=== PATIENT | female | born 1980 | race Caucasian/White ===

== ENCOUNTER → 2016-05-01 | Outpatient (CLI) | payer OTHER ==
[~2016-05-01] MED LIST: AMLO10TA2 PO; ATV/1 PO; CGN1X PO; CYM/30 PO; GLIM1TAB2 PO; HLD5 PO; HYDR-5688 PO; HYDR25TA4 PO; LAMO200T38 PO; LEVO75TA PO; LITH1TAB PO; LITH1TAB10 PO; LITH300T2 PO; LSN25 PO; LTHSR450 PO; LURA40TA PO; LXP10 PO; MELO15TA10 PO; METO-551 PO; MULT-603 PO; PENI-82 PO; PREG1CAP70 PO; PREG200C PO; PRLSR20 PO; TRAM-10 PO; ZIPR1CAP8 PO
--- NOTE | 2016-05-01 16:19 | DIAGNOSTIC IMAGING REPORT ---
PELVIC ULTRASOUND, TRANSABDOMINAL AND TRANSVAGINAL HISTORY: SECONDARY AMENORRHEA COMPARISON: Pelvic ultrasound 06/12/2013. FINDINGS: Uterus: 9.1 x 4.5 x 5.0 cm. No uterine masses. Endometrial stripe: 8 mm in thickness. Trace fluid at the cervical canal. Right ovary: Obscured by overlying bowel gas. Left ovary: Normal in size and demonstrates normal color flow. Multiple small follicles/cysts. Miscellaneous:Trace pelvic free fluid which is likely physiologic. IMPRESSION: 1. No significant abnormality within the uterus or left ovary. 2. The right ovary was again not identified. Electronically signed by: Bernard Kinsey M.D. 05/01/2016 4:17 PM Dictated Date/Time: 05/01/2016 4:15 PM
== END | disposition home or self-care (01) ==
LOC: C.ULTR 15:33
PROVIDERS: ATTEND Family Medicine
DX: N91.1 Secondary amenorrhea (principal)

== ENCOUNTER → 2016-05-04 | Outpatient (CLI) | payer OTHER ==
[2016-05-04 08:24] LABS: BLOOD UREA NITROGEN 8 mg/dl (7-18); BUN/CREATININE RATIO 9.7 (10-20); CARBON DIOXIDE 25 mmol/L (21-32); CHLORIDE 100 mmol/L (98-107); CREATININE 0.78 mg/dl (0.60-1.20); GLUCOSE 88 mg/dl (70-99); POTASSIUM 3.8 mmol/L (3.5-5.1); SODIUM 137 mmol/L (136-145)
[2016-05-04 08:33] LABS: THYROID STIMULATING HORMONE 0.437 uIu/ml (0.300-4.500)
[2016-05-04 09:08] LABS: PROLACTIN 4.3 ng/mL
== END | disposition home or self-care (01) ==
LOC: C.LAB 07:28
PROVIDERS: ATTEND Family Medicine
DX: N91.1 Secondary amenorrhea (principal); Z51.81 Encounter for therapeutic drug level monitoring; Z79.899 Other long term (current) drug therapy

== ENCOUNTER → 2016-06-29 | Outpatient (CLI) | payer OTHER | END | disposition home or self-care (01) | LOC: C.LAB 08:24 | PROVIDERS: ATTEND Psychiatry & Neurology Psychiatry | DX: Z51.81 Encounter for therapeutic drug level monitoring (principal); Z79.899 Other long term (current) drug therapy ==

== ENCOUNTER 2016-07-05 09:40 | Emergency (ER) | payer OTHER ==
[~2016-07-05] VITALS: Ht 152.4 cm; Wt 98.1 kg
[~2016-07-05 09:40] MED LIST changes: -ATV/1 PO; -HLD5 PO; -LITH1TAB10 PO; -LITH300T2 PO; -LTHSR450 PO; -LURA40TA PO; -LXP10 PO; -PREG200C PO
[2016-07-05 09:45] VITALS: TEMP 36.5; Ht 152.4 cm; Wt 98.1 kg
--- NOTE | 2016-07-05 10:19 | EMERGENCY ROOM VISIT NOTE ---
History Report prepared by Maged: Anthony Wood Under the Supervision of: Dr. Houston Corado M.D. First contact with patient: 09:59 Chief Complaint: MENTAL HEALTH EVALUATION Stated Complaint: TICS/DEPRESSION History of Present Illness The patient is a 36 year old female who presents to the Emergency Room for an acute mental health evaluation today. The patient's fiance notes that she has had worsening tics for the past month, including head bobbing and repeating nonsense words. The patient saw her Psychiatrist who recommended she go to the hospital if the symptoms worsen. Her fiance notes that her medications were changed recently. The patient's tic started with the head bobbing before the onset of her verbal tic. The patient notes that she is feeling depressed and anxious, which she attributes to her tics. The patient denies suicidal or homicidal ideations. The patient had a similar tic several years ago, which resolved when her medications were readjusted. The patient complains of neck pain secondary to the repeated head bobbing. She also had diarrhea last night and today. She denies any urinary symptoms. She has been eating okay. The patient denies drug or alcohol use. Source of History: patient, spouse/significant other Onset: today Position: other (mentation) Quality: other (mental health evaluation) Timing: other (acute) Associated Symptoms: + diarrhea, + neck pain, No urinary symptoms Note: Negative HI or SI. Review of Systems All systems have been listed, reviewed, and are negative other than those previously mentioned. Please see Additional Medical History Sheet. Past Medical & Surgical Medical Problems: (1) Altered mental state (2) ANXIETY STATE NOS (3) BIPOL I, REC EPIS OR CURRENT MIXED, SEVERE, SPEC W PSYCH BEH (4) Cholecystectomy (5) Diabetes (6) Emphysema (7) Fibromyalgia (8) HTN (hypertension) (9) Hypoxia (10) Personality disorder (11) Pneumonia Surgical Problems: (1) H/O section Family History Alcoholism Cancer Heart disease Hypertension Kidney disease or stones Social History Smoking Status: Never Smoker Alcohol Use: none Drug Use: none Marital Status: in relationship Housing Status: lives with family Occupation Status: disabled Current/Historical Medications Scheduled Amlodipine Besylate (Norvasc), 10 MG PO DAILY Benztropine Mesylate (Benztropine Mesylate), 1 MG PO DAILY Glimepiride (Glimepiride), 0.5 MG PO QAM Hydrochlorothiazide (Hctz), 25 MG PO DAILY Lamotrigine (Lamictal), 200 MG PO QAM Levothyroxine Sodium (Synthroid), 75 MCG PO DAILY Lisinopril (Lisinopril), 2.5 MG PO DAILY Olga Carbonate (Olga Carbonate), 900 MG PO QPM Lurasidone Hcl (Latuda), 20 MG PO DAILY Metoprolol Tartrate (Lopressor), 100 MG PO BID Pregabalin (Lyrica), 200 MG PO BID Tramadol (Ultram), 25 MG PO BID Scheduled PRN Lorazepam (Ativan), 2 MG PO Q6H PRN for anxiety Allergies Coded Allergies: Chlorpromazine (Verified Allergy, Intermediate, RASH, 02/24/16) Vilazodone (Verified Allergy, Mild, VIIBRYD- RASH, 02/24/16) Naproxen (Verified Allergy, Unknown, Rash, 02/24/16) Prednisone (Verified Allergy, Unknown, BAD RASH, 02/24/16) Risperidone (Verified Allergy, Unknown, swollen tongue and stiff legs, ) Physical Exam Vital Signs Date Time Temp Pulse Resp B/P Pulse Ox O2 Delivery O2 Flow Rate FiO2 07/05/16 15:48 84 22 118/84 98 07/05/16 13:13 57 18 116/61 99 Room Air 07/05/16 09:45 36.5 69 18 125/86 97 Room Air Physical Exam GENERAL: Patient awake, alert, oriented x 3. Patient follows commands. Patient does not appear toxic. Patient is adequately hydrated and well- nourished. SKIN: No erythema, pallor, cyanosis or rash HEENT: Normal head, pupils equal, reactive to light and accommodation. Tic involving rapid movement of head and neck. LUNGS: Clear to auscultation. No wheezes, no rales, no rhonchi. HEART: No murmurs. No gallops. No rubs ABDOMEN: Soft, nontender, obese. EXTREMITIES: No signs of trauma or infection. PSYCH: Denies suicidal or homicidal ideations, does not appear despondent, answers most questions appropriately. Medical Decision & Procedures Laboratory Results 07/05/16 10:27 07/05/16 10:27 Test 07/05/16 10:27 07/05/16 11:46 Red Blood Count 5.72 M/uL (4.2-5.4) Mean Corpuscular Volume 83.0 fL (80-100) Mean Corpuscular Hemoglobin 28.8 pg (25-34) Mean Corpuscular Hemoglobin Concent 34.7 g/dl (32-36) RDW Standard Deviation 41.3 fL (36.4-46.3) RDW Coefficient of Variation 13.6 % (11.5-14.5) Mean Platelet Volume 10.5 fL (7.4-10.4) Anion Gap 12.0 mmol/L (3-11) Est Creatinine Clear Calc Drug Dose 94.8 ml/min Estimated GFR () 100.0 Estimated GFR (Non- 86.3 BUN/Creatinine Ratio 10.6 (10-20) Calcium Level 9.4 mg/dl (8.5-10.1) Total Bilirubin 0.6 mg/dl (0.2-1) Aspartate Amino Transf (AST/SGOT) 20 U/L (15-37) Alanine Aminotransferase (ALT/SGPT) 42 U/L (12-78) Alkaline Phosphatase 114 U/L (45-117) Total Protein 8.1 gm/dl (6.4-8.2) Albumin 4.2 gm/dl (3.4-5.0) Globulin 3.9 gm/dl (2.5-4.0) Albumin/Globulin Ratio 1.1 (0.9-2) Thyroid Stimulating Hormone (TSH) 0.062 uIu/ml (0.300-4.500) Ethyl Alcohol mg/dL < 3.0 mg/dl (0-3) Urine Color YELLOW Urine Appearance CLEAR (CLEAR) Urine pH 6.5 (4.5-7.5) Urine Specific [place] 1.010 (1.000-1.030) Urine Protein NEG (NEG) Urine Glucose (UA) NEG (NEG) Urine Ketones NEG (NEG) Urine Occult Blood NEG (NEG) Urine Nitrite NEG (NEG) Urine Bilirubin NEG (NEG) Urine Urobilinogen NEG (NEG) Urine Leukocyte Esterase NEG (NEG) Urine Opiates Screen NEG (NEG) Urine Methadone, Qualitative NEG (NEG) Urine Barbiturates NEG (NEG) Urine Phencyclidine (PCP) Level NEG (NEG) Ur Amphetamine/Methamphetamine NEG (NEG) MDMA (Ecstasy) Screen NEG (NEG) Urine Benzodiazepines Screen NEG (NEG) Urine Cocaine Metabolite NEG (NEG) Urine Marijuana (THC) NEG (NEG) Laboratory results as stated above per my review. Medications Administered Medications (Trade) Dose Ordered Sig/Roge Route Start Time Stop Time Status Last Admin Dose Admin Lorazepam (Ativan Tab) 2 mg NOW STAT SL 07/05/16 13:57 07/05/16 13:58 DC 07/05/16 14:03 2 MG ED Course 1000: Past medical records reviewed. The patient was evaluated in room A5. A complete history and physical examination was performed. 1300: Spoke with the psychiatric case maker. 1320: Discussed the case with Dr. Cueva, Psychiatrist. They suggested that the patient stop Latuda and increase Cogentin to BID. 1350: The patient states that she does not want to go home as she feels like her treatment is inadequate. I did discuss all of her options provided by Dr. Cueva. The patient will get some Ativan. 1357: Ativan 2 mg SL. 1520: Discussed the discharge instructions with the patient. She will be discharged. Medical Decision I considered multiple diagnoses including depression, anxiety disorder, bipolar disorder, Tourette's syndrome. Multiple labs were obtained. Please see above. The patient's white count is mildly elevated. This may be medication related. The patient does not appear to have active infection. The patient is here with head bobbing and repetitive speech. She has had both of these symptoms in the past but now the symptoms seem to be worse. The patient follows closely with Dr. Thacker. In addition to being seen by me she was also seen by our case maker liaison and termite control service representative from [facility]. The case was discussed with Dr. Cueva from psychiatry. It was also discussed with Dr. Thacker. The decision was to discontinue Latuda and increase Cogentin twice a day. The patient was given Ativan here which did seem to help. She will be given a prescription for Ativan to take at home. Klonopin does not seem to be helping her. The patient was given a small prescription for Ativan. Impression Primary Impression: Depression Additional Impressions: Acute anxiety Leukocytosis Scribe Attestation The scribe's documentation has been prepared under my direction and personally reviewed by me in its entirety. I confirm that the note above accurately reflects all work, treatment, procedures, and medical decision making performed by me. Departure Information Dispostion Home / Self-Care Prescriptions Lorazepam (ATIVAN) 1 Mg Tab 2 MG PO Q6H Y for anxiety, #10 TAB Prov: Houston Corado M.D. 07/05/16 Referrals Cassi Payton M.D. (PCP) Forms HOME CARE DOCUMENTATION FORM, IMPORTANT VISIT INFORMATION Patient Instructions My [facility] Additional Instructions Stop taking Latuda. Increase Cogentin to twice a day. 2 mg of Ativan every 6 hours as needed for severe anxiety. Do not take Ativan while taking Klonopin. Call Dr. Thacker Thursday. Problem Qualifiers
[2016-07-05] MEDS ORDERED: LITH300T2 PO (10:41)
[2016-07-05] MEDS ORDERED: LURA40TA PO (10:41)
[2016-07-05] MEDS ORDERED: PREG200C PO (10:41)
[2016-07-05 10:46] LABS: HEMATOCRIT 47.5 % (37-47); MEAN CORPUSCULAR HEMOGLOBIN 28.8 pg (25-34); MEAN CORPUSCULAR HGB CONC 34.7 g/dl (32-36); MEAN PLATELET VOLUME 10.5 fL (7.4-10.4); PLATELET COUNT 360 K/uL (130-400); RED BLOOD COUNT 5.72 M/uL (4.2-5.4); WHITE BLOOD COUNT 15.75 K/uL (4.8-10.8)
[2016-07-05 11:04] LABS: BUN/CREATININE RATIO 10.6 (10-20); CALCIUM 9.4 mg/dl (8.5-10.1); CREATININE 0.87 mg/dl (0.60-1.20); POTASSIUM 3.7 mmol/L (3.5-5.1)
[2016-07-05 11:15] LABS: ALB/GLOB RATIO 1.1 (0.9-2); THYROID STIMULATING HORMONE 0.062 uIu/ml (0.300-4.500)
[2016-07-05 12:02] LABS: URINE APPEARANCE CLEAR (CLEAR); URINE BILIRUBIN NEG (NEG); URINE COLOR YELLOW; URINE NITRITE NEG (NEG); URINE PH 6.5 (4.5-7.5); UROBILINOGEN NEG (NEG)
[2016-07-05 12:06] LABS: MANUAL MICROSCOPIC REQUIRED? NO; REVIEW REQ? NO
[2016-07-05 12:34] LABS: BENZODIAZEPINE, URINE NEG (NEG); COCAINE,URINE NEG (NEG); PHENCYCLIDINE, URINE NEG (NEG)
[2016-07-05] MEDS ORDERED: LORAZEPAM 1 MG TAB SL STA (13:57)
[2016-07-05] MEDS ORDERED: ATV/1 PO (15:35)
[2016-07-05 15:48] VITALS: BP 118/84; PULSE 84; O2SAT 98
[2016-07-21] MEDS ORDERED: PRLSR20 PO (14:28)
== END 2016-07-05 15:50 | disposition home or self-care (01) ==
LOC: C.EDB 09:42 → C.EDA 15:50
DX: F32.9 Major depressive disorder, single episode, unspecified (principal); F41.9 Anxiety disorder, unspecified; D72.829 Elevated white blood cell count, unspecified; F95.9 Tic disorder, unspecified; Z90.49 Acquired absence of other specified parts of digestive tract; E11.9 Type 2 diabetes mellitus without complications; I10 Essential (primary) hypertension; M79.7 Fibromyalgia; F60.9 Personality disorder, unspecified; Z87.01 Personal history of pneumonia (recurrent); Z82.49 Family history of ischemic heart disease and other diseases of the circulatory system; Z79.899 Other long term (current) drug therapy

== ENCOUNTER → 2016-07-13 | Outpatient (CLI) | payer OTHER ==
[~2016-07-13] MED LIST changes: +ATV/1 PO; +BENZ-88 PO; +CALCTAB7 PO; -CGN1X PO; +CTP1 PO; -CYM/30 PO; +DPKSR/500 PO; +ESCI1TAB10 PO; +GUAN2TAB PO; +HLD5 PO; +HLD5X PO; -HYDR-5688 PO; +LEVO50TA6 PO; -LITH1TAB PO; +LITH1TAB10 PO; +LITH300T2 PO; +LTHSR450 PO; +LURA40TA PO; +LXP10 PO; -MELO15TA10 PO; +METO100T14 PO; -MULT-603 PO; -PENI-82 PO; +PREG150C PO; -PREG1CAP70 PO; +PREG200C PO; +RMR15 PO; +RST/30 PO; +ULT50 PO; +VALB40CA PO; -ZIPR1CAP8 PO
== END | disposition home or self-care (01) ==
LOC: C.LAB 12:47
PROVIDERS: ATTEND Psychiatry & Neurology Psychiatry
DX: Z51.81 Encounter for therapeutic drug level monitoring (principal); Z79.899 Other long term (current) drug therapy

== ENCOUNTER 2016-07-14 18:02 | Inpatient (IN) | payer OTHER ==
[~2016-07-14] VITALS: Ht 154.9 cm; Wt 102.0 kg
[~2016-07-14 18:02] MED LIST changes: -CALCTAB7 PO; -CTP1 PO; -DPKSR/500 PO; -ESCI1TAB10 PO; -GLIM1TAB2 PO; -GUAN2TAB PO; -HLD5 PO; -HLD5X PO; -LEVO50TA6 PO; -LITH1TAB10 PO; -LTHSR450 PO; -LXP10 PO; -METO100T14 PO; -PREG150C PO; -PRLSR20 PO; -RMR15 PO; -RST/30 PO; -ULT50 PO; -VALB40CA PO
[2016-07-14] MEDS ORDERED: LITH1TAB10 PO (19:34)
--- NOTE | 2016-07-14 20:01 | EMERGENCY ROOM VISIT NOTE ---
History Report prepared by Maged: Aleksander Rhodes Under the Supervision of: Dr. Williams Soria D.O. First contact with patient: 18:43 Chief Complaint: MENTAL HEALTH EVALUATION Stated Complaint: LOOSING IT History of Present Illness The patient is a 36 year old female who presents to the Emergency Room with complaints of an episode of mental health evaluation. Per the nurse, she was here recently, and has ticks at baseline. She is not suicidal today, but her ticks are worsening. The patient does currently have outpatient services. The patient notes that she is depressed and pissed off. She notes she was sent here by Dr. Thacker. She notes saw Dr. Thacker today and was supposed to get her medications today, and was sent here because her fiance had noted she threw a plate at his head. The patient denies suicidal ideations. She reports that Dr. Thacker took her off of the antidepressants because the patient developed ticks. The patient does not recall when she was taken off of her medications. Per the patient's fiance, she was belligerent and yelling at Dr. Thacker' office earlier today. He notes that Dr. Thacker was going to order a police escort to ensure that the patient come to the ER today. He confirms that the patient threw the plate last night, but denies any homicidal remarks. Source of History: patient, nursing staff Onset: today Position: head Quality: other (mental health evaluation) Timing: other (episode) Note: The patient denies suicidal or homicidal ideations. Review of Systems See HPI for pertinent positives & negatives. A total of 10 systems reviewed and were otherwise negative. Past Medical & Surgical Medical Problems: (1) Altered mental state (2) ANXIETY STATE NOS (3) BIPOL I, REC EPIS OR CURRENT MIXED, SEVERE, SPEC W PSYCH BEH (4) Cholecystectomy (5) Diabetes (6) Emphysema (7) Fibromyalgia (8) HTN (hypertension) (9) Hypoxia (10) Personality disorder (11) Pneumonia Surgical Problems: (1) H/O section Family History Alcoholism Cancer Heart disease Hypertension Kidney disease or stones Social History Smoking Status: Never Smoker Alcohol Use: none Drug Use: none Marital Status: in relationship Housing Status: lives with family Occupation Status: disabled Current/Historical Medications Scheduled Amlodipine Besylate (Norvasc), 10 MG PO DAILY Benztropine Mesylate (Benztropine Mesylate), 1 MG PO BID Glimepiride (Glimepiride), 0.5 MG PO QAM Hydrochlorothiazide (Hctz), 25 MG PO DAILY Lamotrigine (Lamictal), 200 MG PO QAM Levothyroxine Sodium (Synthroid), 75 MCG PO DAILY Lisinopril (Lisinopril), 2.5 MG PO DAILY [employer] Carbonate Ext Rel (Lithobid Ext Rel), 900 MG PO HS Metoprolol Tartrate (Lopressor), 100 MG PO BID Pregabalin (Lyrica), 200 MG PO BID Tramadol (Ultram), 25 MG PO BID Allergies Coded Allergies: Chlorpromazine (Verified Allergy, Intermediate, RASH, 07/14/16) Vilazodone (Verified Allergy, Mild, VIIBRYD- RASH, 07/14/16) Naproxen (Verified Allergy, Unknown, Rash, 07/14/16) Prednisone (Verified Allergy, Unknown, BAD RASH, 07/14/16) Risperidone (Verified Allergy, Unknown, swollen tongue and stiff legs, 07/14) Physical Exam Vital Signs Date Time Temp Pulse Resp B/P Pulse Ox O2 Delivery O2 Flow Rate FiO2 07/14/16 20:44 90 20 121/84 96 Room Air 07/14/16 20:11 97 07/14/16 18:14 36.7 108 22 128/90 96 Room Air Physical Exam CONSTITUTIONAL/VITAL SIGNS: Reviewed / noted above. GENERAL: Non-toxic in appearance. INTEGUMENTARY: Warm, dry, and [address]. HEAD: Normocephalic. EYES: without scleral icterus or trauma. ENT/OROPHARYNX: clear and moist. LYMPHADENOPATHY/NECK: Is supple without lymphadenopathy or meningismus. RESPIRATORY: Lungs clear and equal. CARDIOVASCULAR: Regular rate and rhythm. GI/ABDOMEN: Soft and nontender. No organomegaly or pulsatile mass. No rebound or guarding. Normal bowel sounds. EXTREMITIES: Warm and well perfused. BACK: No CVA tenderness. NEUROLOGICAL: Intact without focal deficits. PSYCHIATRIC: Denies suicidal or homicidal ideations. Appears to be agitated and angry about her current situation. MUSCULOSKELETAL: Normally developed with good muscle tone. Medical Decision & Procedures Laboratory Results 07/14/16 20:16 Red Blood Count 5.06, Mean Corpuscular Volume 85.6, Mean Corpuscular Hemoglobin 29.8, Mean Corpuscular Hemoglobin Concent 34.9, Mean Platelet Volume 10.3, Neutrophils (%) (Auto) 71.8, Lymphocytes (%) (Auto) 20.7, Monocytes (%) (Auto) 5.2, Eosinophils (%) (Auto) 1.7, Basophils (%) (Auto) 0.2, Neutrophils # (Auto) 11.62, Lymphocytes # (Auto) 3.34, Monocytes # (Auto) 0.84, Eosinophils # (Auto) 0.27, Basophils # (Auto) 0.03 07/14/16 20:16 Test 07/14/16 18:40 07/14/16 20:16 Urine Color YELLOW Urine Appearance CLEAR (CLEAR) Urine pH 6.5 (4.5-7.5) Urine Specific [place] 1.019 (1.000-1.030) Urine Protein NEG (NEG) Urine Glucose (UA) NEG (NEG) Urine Ketones NEG (NEG) Urine Occult Blood NEG (NEG) Urine Nitrite NEG (NEG) Urine Bilirubin NEG (NEG) Urine Urobilinogen NEG (NEG) Urine Leukocyte Esterase NEG (NEG) Urine WBC (Auto) 1-5 /hpf (0-5) Urine RBC (Auto) 0-4 /hpf (0-4) Urine Hyaline Casts (Auto) 1-5 /lpf (0-5) Urine Epithelial Cells (Auto) >30 /lpf (0-5) Urine Bacteria (Auto) 1+ (NEG) Urine Test NEG (NEG) Urine Opiates Screen NEG (NEG) Urine Methadone, Qualitative NEG (NEG) Urine Barbiturates NEG (NEG) Urine Phencyclidine (PCP) Level NEG (NEG) Ur Amphetamine/Methamphetamine NEG (NEG) MDMA (Ecstasy) Screen NEG (NEG) Urine Benzodiazepines Screen NEG (NEG) Urine Cocaine Metabolite NEG (NEG) Urine Marijuana (THC) NEG (NEG) White Blood Count 16.16 K/uL (4.8-10.8) Red Blood Count 5.06 M/uL (4.2-5.4) Hemoglobin 15.1 g/dL (12.0-16.0) Hematocrit 43.3 % (37-47) Mean Corpuscular Volume 85.6 fL (80-100) Mean Corpuscular Hemoglobin 29.8 pg (25-34) Mean Corpuscular Hemoglobin Concent 34.9 g/dl (32-36) Platelet Count 300 K/uL (130-400) Mean Platelet Volume 10.3 fL (7.4-10.4) Neutrophils (%) (Auto) 71.8 % Lymphocytes (%) (Auto) 20.7 % Monocytes (%) (Auto) 5.2 % Eosinophils (%) (Auto) 1.7 % Basophils (%) (Auto) 0.2 % Neutrophils # (Auto) 11.62 K/uL (1.4-6.5) Lymphocytes # (Auto) 3.34 K/uL (1.2-3.4) Monocytes # (Auto) 0.84 K/uL (0.11-0.59) Eosinophils # (Auto) 0.27 K/uL (0-0.5) Basophils # (Auto) 0.03 K/uL (0-0.2) RDW Standard Deviation 42.5 fL (36.4-46.3) RDW Coefficient of Variation 13.6 % (11.5-14.5) Immature Granulocyte % (Auto) 0.4 % Immature Granulocyte # (Auto) 0.06 K/uL (0.00-0.02) Anion Gap 12.0 mmol/L (3-11) Est Creatinine Clear Calc Drug Dose 95.7 ml/min Estimated GFR () 96.0 Estimated GFR (Non- 82.8 BUN/Creatinine Ratio 9.1 (10-20) Calcium Level 8.3 mg/dl (8.5-10.1) Total Bilirubin 0.4 mg/dl (0.2-1) Aspartate Amino Transf (AST/SGOT) 18 U/L (15-37) Alanine Aminotransferase (ALT/SGPT) 32 U/L (12-78) Alkaline Phosphatase 114 U/L (45-117) Total Protein 7.1 gm/dl (6.4-8.2) Albumin 3.7 gm/dl (3.4-5.0) Globulin 3.4 gm/dl (2.5-4.0) Albumin/Globulin Ratio 1.1 (0.9-2) Thyroid Stimulating Hormone (TSH) 0.362 uIu/ml (0.300-4.500) Salicylates Level < 1.7 mg/dl (2.8-20) Acetaminophen Level < 2 ug/ml (10-30) [employer] Level 0.5 mMOL/L (0.6-1.2) Ethyl Alcohol mg/dL < 3.0 mg/dl (0-3) Laboratory results as stated above per my review. ED Course 1856: Previous medical records were reviewed. The patient was evaluated in room A6. A complete history and physical examination was performed. 2204: The patient will be admitted by [facility]. Medical Decision differential includes toxic ingestions, self-mutilation, suicidal ideation, suicide attempt, depression. This is a 36-year-old female who presents to the ED with a chief complaint that she was sent here by Dr. Thacker. That is her psychiatrist. She has been having anger issues recently. Last night she threw edition at her . She was throwing some chairs around at the office today and was sent here for evaluation. The patient does have history of same. Dr. Dacosta felt she needed to be admitted for her symptoms. She is not suicidal or homicidal. The patient 's exam was unremarkable other than anger. Vital signs are stable. The patient 's laboratory studies were unremarkable. The patient was given Haldol IM. She is being accepted by [facility] for psychiatric admission. Impression Primary Impression: Bipolar affect, depressed Additional Impression: Excessive anger Scribe Attestation The scribe's documentation has been prepared under my direction and personally reviewed by me in its entirety. I confirm that the note above accurately reflects all work, treatment, procedures, and medical decision making performed by me. Departure Information Dispostion Mental Health Acute Care Patient Instructions My [facility] Problem Qualifiers
[2016-07-14 20:31] LABS: BASO % 0.2 %; BASO ABS # 0.03 K/uL (0-0.2); COMPLETE YES; EOS % 1.7 %; HEMATOCRIT 43.3 % (37-47); IG% 0.4 %; LYMPH % 20.7 %; LYMPH ABS # 3.34 K/uL (1.2-3.4); MEAN CELL VOLUME 85.6 fL (80-100); MEAN CORPUSCULAR HEMOGLOBIN 29.8 pg (25-34); MEAN CORPUSCULAR HGB CONC 34.9 g/dl (32-36); MEAN PLATELET VOLUME 10.3 fL (7.4-10.4); MONO % 5.2 %; NEUT % 71.8 %; PLATELET COUNT 300 K/uL (130-400); RED BLOOD COUNT 5.06 M/uL (4.2-5.4); WHITE BLOOD COUNT 16.16 K/uL (4.8-10.8)
[2016-07-14 20:34] LABS: BENZODIAZEPINE, URINE NEG (NEG); COCAINE,URINE NEG (NEG); PHENCYCLIDINE, URINE NEG (NEG)
[2016-07-14 20:56] LABS: LITHIUM 0.5 mMOL/L (0.6-1.2)
[2016-07-14] MEDS ORDERED: HALOPERIDOL 5 MG TAB PO STA (21:18)
[2016-07-14 21:28] LABS: ACETAMINOPHEN < 2 ug/ml (10-30)
[2016-07-14] MEDS ORDERED: SODIUM CHLORIDE 0.65% NA SOLN 45 ML (OCEAN) PRN (21:30)
[2016-07-14] MEDS ORDERED: ACETAMINOPHEN 325 MG TAB PO PRN (21:30)
[2016-07-14] MEDS ORDERED: MAGNESIUM HYDROXIDE SUSP 30 ML UDC PO PRN (21:30)
[2016-07-14] MEDS ORDERED: hydrOXYzine HCL 25 MG TAB PO PRN (21:30)
[2016-07-14] MEDS ORDERED: ALUMINUM/MAGNESIUM SUSP 30 ML UDC PO PRN (21:30)
[2016-07-14 21:39] LABS: POTASSIUM 3.4 mmol/L (3.5-5.1)
[2016-07-14 21:58] LABS: ALB/GLOB RATIO 1.1 (0.9-2); BUN/CREATININE RATIO 9.1 (10-20); CALCIUM 8.3 mg/dl (8.5-10.1); CREATININE 0.9 mg/dl (0.60-1.20); THYROID STIMULATING HORMONE 0.362 uIu/ml (0.300-4.500)
[2016-07-14 22:00] VITALS: O2SAT 96
[2016-07-14 22:06] LABS: URINE APPEARANCE CLEAR (CLEAR); URINE BILIRUBIN NEG (NEG); URINE COLOR YELLOW; URINE EPITHELIAL CELL AUTO >30 /lpf (0-5); URINE NITRITE NEG (NEG); URINE PH 6.5 (4.5-7.5); URINE SPECIFIC GRAVITY 1.019 (1.000-1.030); UROBILINOGEN NEG (NEG); ZZUR CULT IF INDIC CLEAN CATCH YES
[2016-07-14 22:08] LABS: MANUAL MICROSCOPIC REQUIRED? NO; REVIEW REQ? NO
[2016-07-14] MEDS ORDERED: METOPROLOL TARTRATE 50 MG TAB PO STA (22:24)
[2016-07-14] MEDS ORDERED: PREGABALIN 100 MG CAP PO STA (22:24)
[2016-07-14] MEDS ORDERED: LITHIUM CARBONATE SR 300 MG TAB (LITHOBID) PO STA (22:24)
[2016-07-14] MEDS ORDERED: TRAMADOL HCL 50 MG TAB PO STA (22:24)
[2016-07-14 22:30] VITALS: BP 121/84; PULSE 90; TEMP 36.7; BMI 42.5
[2016-07-14] MEDS ORDERED: NURSING VERBAL MED ORDER ONE (22:30)
[2016-07-14 22:45] VITALS: BP 122/84; PULSE 88
[2016-07-15 06:36] VITALS: BP_SYST 112; BP_SYST 122; BP_DIAS 74; BP_DIAS 77; PULSE 80; PULSE 84; TEMP 37
[2016-07-15] MEDS: LEVOTHYROXINE 75 MCG TAB PO SCH (08:19)
[2016-07-15] MEDS: GLIMEPIRIDE 2 MG TAB PO SCH (08:21)
[2016-07-15] MEDS: HYDROCHLOROTHIAZIDE 25 MG TAB PO SCH (08:21)
[2016-07-15] MEDS: METOPROLOL TARTRATE 50 MG TAB PO SCH ×2 (08:22→21:12)
[2016-07-15] MEDS: AMLODIPINE BESYLATE 5 MG TAB PO SCH (08:26)
[2016-07-15] MEDS: PREGABALIN 100 MG CAP PO SCH ×2 (08:26→21:12)
[2016-07-15] MEDS: TRAMADOL HCL 50 MG TAB PO SCH ×2 (08:27→21:14)
[2016-07-15] MEDS: LISINOPRIL 2.5 MG TAB PO SCH (08:28)
[2016-07-15] MEDS: HALOPERIDOL 5 MG TAB PO PRN ×3 (09:13→17:45)
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
[2016-07-15] MEDS: LITHIUM CARBONATE SR 300 MG TAB (LITHOBID) PO SCH (21:11)
[2016-07-15 21:16] VITALS: BP 102/70; PULSE 88
[2016-07-16 06:58] VITALS: BP_SYST 123; BP_SYST 129; BP_DIAS 78; BP_DIAS 83; PULSE 90; PULSE 94; TEMP 36.6
[2016-07-16] MEDS: LEVOTHYROXINE 75 MCG TAB PO SCH (08:00)
[2016-07-16] MEDS: GLIMEPIRIDE 2 MG TAB PO SCH (08:49)
[2016-07-16] MEDS: HYDROCHLOROTHIAZIDE 25 MG TAB PO SCH (08:50)
[2016-07-16] MEDS: AMLODIPINE BESYLATE 5 MG TAB PO SCH (08:51)
[2016-07-16] MEDS: PREGABALIN 100 MG CAP PO SCH ×2 (08:51→20:50)
[2016-07-16] MEDS: METOPROLOL TARTRATE 50 MG TAB PO SCH ×2 (08:51→20:50)
[2016-07-16] MEDS: LISINOPRIL 2.5 MG TAB PO SCH (08:52)
[2016-07-16] MEDS: hydrOXYzine HCL 25 MG TAB PO PRN ×2 (08:52→15:28)
[2016-07-16] MEDS: TRAMADOL HCL 50 MG TAB PO SCH ×2 (08:52→20:51)
--- NOTE | 2016-07-16 10:57 | Psychiatric Progress Notes ---
Progress Note Date of Service Jul 16, 2016. Interval History Magaly Robert is a 36-year-old woman from [place], [place], admitted to our mental health unit on a voluntary basis with personality disorder and an exacerbation of bipolar disorder including angry outbursts and tics. She is unable to be managed outside of a structured environment. Chief Complaint "Not good". Subjective Patient was seen & assessed interval progress reviewed with Treatment Team. Staff report she attended groups, but used inappropriate language and complained that her symptoms were not being addressed. It was noted that during groups, she would repeat "Della" when not participating in the group, but when speaking, she articulated clearly and without interruption or noticeable tics. It was also noted that she lowered the volume of her voice when repeating "Della" when others were speaking. She napped during the day, but at other times was out on the unit and was quite irritable and angry. She requested and received 3 doses of Haldol 5 mg, which she stated was helpful, but was sedating. She had a visit with her fianc and son, which appeared to go well. This morning, she was observed eating breakfast with her peers, but then return to bed. She told nursing staff that she was feeling shaky and nauseated this morning, and ate 100% of her breakfast. When seen in her room, she states that she is not feeling well because she is "shaky, depressed, and marcus." She does not feel her symptoms have improved since admission, but then says that Haldol helped, although it made her tired. She agrees to try a lower dose of 2-1/2 mg as needed today. She says nothing has ever helped her take, which she describes as "a verbal one, I say Della, and sometimes not my head." She thinks she has had this tic before, but cannot remember what she did to manage in the past, and states "it just went away." She started noticing again about a month ago. She admits that it's worse when she is anxious, but denies any other triggers. She continues to endorse severe irritability, stating that she doesn't want to go to groups, "I just don't want to do anything." She agreed to rest during the first scheduled group, but then to get up and attend the rest of the groups today, as she was reminded that this is an important part of treatment here. She states she has been showering, eating well, sleeping well, although she does get up frequently to use the bathroom. She says she went to groups yesterday but can't recall anything that she talked about. She denies hallucinations, suicidality, and homicidality. Sleep Information Total Hours of Sleep: 10.00 Meal Information Percent of Breakfast Consumed: 100 Percent of Lunch Consumed: 100 Percent of Dinner Consumed: 50 Mental Status Exam During interview pt is: alert and oriented, uncooperative, other (obese, casual dress, lying in bed with the covers pulled up and arm draped over her eyes) Appearance: disheveled Eye contact is: poor Motor behavior is: no abnormal motor movements (no head-bobbing or other motor tics observed) Speech: normal in rate, rhythm & volume (at times appears to be whispering under her breath, but is able to speak clearly without verbal tics) Affect: mood congruent, depressed, irritable Mood is: other ("not good, depressed and marcus") Thought process: goal directed Thought content: preoccupation (with her perceived tics) Suicidal thought are: denied Homicidal thoughts are: denied Hallucinations: denies auditory, denies visual Cognition: memory grossly intact, attention grossly intact, language grossly intact Intelligence estimated to be: average Insight: impaired Judgement: impaired Medication Trials (1) Past Psych Medications Include but are not limited to: 1. Thorazine -- rash. 2. Topamax - increase in anxiety. 3. Depakote -- weight gain. 4. Trazodone -- rash. 5. Risperdal -- swollen tongue and stiffness. 6. Wellbutrin -- ineffective. 7. Haldol --? did receive in the ER last night without side effect. 8. Viibryd -- rash. 9. Prednisone -- rash. 10. Multiple SSRIs including Prozac, Zoloft, Lexapro and Celexa -- ineffective. 11. Effexor -- ? 12. Elavil -- ? 13. Doxepin - DC'd due do hyperammonemia. 14. Abilify -- did not work. 15. Zyprexa -- ? 16. Neurontin -- ? Last Edited By: Linda Lawson on Jul 16, 2016 10:32 Impression 36-year-old woman with bipolar disorder and personality disorder, admitted with behavioral dysregulation and frequent anger outbursts, including one in her doctor's office where she threw a chair. She had been taken off Latuda due to concerns for physical and verbal tics. Physical tics are diminished, but verbal tics continue. Low suspicion that this is a manifestation of dystonia, due to the fact that she has both verbal and physical tics. On admission, discontinued Cogentin as does not appear to be necessary and will only increase risk of side effects. She reports Haldol has been helpful for agitation, so had continued that here, although lowering the dose today due to over sedation. Will continue to observe the quality and presentation of these tics and will coordinate with Dr. Schroeder whom we have already spoken with regarding her concerns and medication confirmation. We will involve her fiance in treatment and coordinate with all of her outpatient providers. At this time, however, she requires inpatient mental health treatment due to the severity of her presentation and inability to be managed safely in the outpatient environment. DIAGNOSES: 1. Bipolar disorder, depressed. 2. Anxiety disorder, not otherwise specified. 3. Personality disorder with cluster B traits. 4. Morbid obesity. 5. Fibromyalgia. 6. Hypertension. 7. Gastroesophageal reflux disease. 8. Type 2 diabetes. 9. Hypothyroidism. Plan (1) Bipolar 1 disorder 07/15-- low suspicion that this is a dyskinesia and so will discontinue Cogentin 1 mg b.i.d. and remain off Latuda. -- will use Haldol 5 mg q. 4 hours p.r.n. for agitation. I have informed the patient that verbal or physical aggression will not be tolerated here in the mental health unit. -- we will observe for the next 24 hours to see the pattern of her verbal and physical tics. -- we will continue all of her other outpatient medications. [place] level today 0.8. -- q. 15-minute checks for safety. -- encourage participation in group and individual counseling. -- encouraged the patient to be out of bed during the day and establish good day -night cycles. -- family meeting. -- coordinate with outpatient providers. (2) Excessive anger Bipolar disorder and personality disorder both contributing. Can use Haldol as above. Encourage group attendance and participation to work on healthy ways to cope and safety planning. (3) Tic Patient presents with vocal and motor tic. She states she's had these before, but is a poor historian for previous episodes. There does appear to be some degree of voluntary control of the tics, and first-line treatment is behavioral therapy (CBT, habit reversal training, or exposure and response prevention) and treatment of psychiatric comorbidities. If these are ineffective and tics continue, could consider a trial of medication to target them, such as clonidine or guanfacine. 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 Patient to be reminded of appropriate behavior and boundaries while on the unit. (5) Hypertension continue home dose of amlodipine. Monitor. (6) Hypothyroid Continue home dose of Synthroid 75 mcg daily. TSH within normal limits. (7) Fibromyalgia -- will make tramadol p.r.n. rather than scheduled due to her reports of somnolence during the day. (8) Diabetes -- continue Amaryl with blood sugars b.i.d. Discharge / Aftercare Planning Primary Care Physician: Name: Dr. Payton Picture Engraver: Name: Jennifer Li Visit Code E&M Code: 03819 Risk Factors Assessment : Yes /single/: No Higher / Fall in social status: No Access to guns: No Health problems: Yes Mental Health Diagnoses: Yes Substance use disorders: No Previous attempt: Yes Family history of suicide: Yes Previous psychiatric stay: Yes Smoker: No Protective Factors Assessment : Yes Responsible for young children: Yes Employed: No Supportive family: Yes Data Vital Signs Last 24 Hrs: Date Time Temp Pulse Resp B/P Pulse Ox O2 Delivery O2 Flow Rate FiO2 07/16/16 06:58 36.6 90 18 129/83 94 123/78 07/15/16 21:16 88 102/70 Meds Administered Last 24 Hrs: Meds Administered (Past 24Hrs) Medications (Trade) Dose Ordered Sig/Roge Route Start Time Stop Time Status Last Admin Dose Admin Hydroxyzine HCl (Vistaril Tab) 25 mg Q4H PRN PO 07/14/16 21:30 08/13/16 21:29 07/16/16 08:52 25 MG Amlodipine Besylate (Norvasc Tab) 10 mg DAILY PO 07/15/16 09:00 08/14/16 08:59 07/16/16 08:51 10 MG Hydrochlorothiazide (Hydrochlorothiazide Tab) 25 mg DAILY PO 07/15/16 09:00 08/14/16 08:59 07/16/16 08:50 25 MG Lamotrigine (Lamictal Tab) 200 mg QAM PO 07/15/16 09:00 08/14/16 08:59 07/16/16 08:50 200 MG Levothyroxine Sodium (Synthroid Tab) 75 mcg DAILYBB PO 07/15/16 08:00 08/14/16 07:59 07/16/16 08:00 75 MCG Lisinopril (Zestril Tab) 2.5 mg DAILY PO 07/15/16 09:00 08/14/16 08:59 07/16/16 08:52 2.5 MG [place] Carbonate (Lithobid Tab) 900 mg HS PO 07/15/16 21:00 08/14/16 20:59 07/15/16 21:11 900 MG Metoprolol Tartrate (Lopressor Tab) 100 mg BID PO 07/15/16 09:00 08/14/16 08:59 07/16/16 08:51 100 MG Pregabalin (Lyrica Cap) 200 mg BID PO 07/15/16 09:00 08/14/16 08:59 07/16/16 08:51 200 MG Tramadol HCl (Ultram Tab) 25 mg BID PO 07/15/16 09:00 08/14/16 08:59 07/16/16 08:52 25 MG Glimepiride (Amaryl Tab) 0.5 mg QAM PO 07/15/16 09:00 08/14/16 08:59 07/16/16 08:49 0.5 MG Haloperidol (Haldol Tab) 5 mg Q4H PRN PO 07/14/16 21:30 08/13/16 21:29 07/15/16 17:45 5 MG [place] Carbonate (Lithobid Tab) 900 mg NOW STAT PO 07/14/16 22:24 07/14/16 22:25 DC 07/14/16 22:42 900 MG Metoprolol Tartrate (Lopressor Tab) 100 mg NOW STAT PO 07/14/16 22:24 07/14/16 22:25 DC 07/14/16 22:45 100 MG Pregabalin (Lyrica Cap) 200 mg NOW STAT PO 07/14/16 22:24 07/14/16 22:25 DC 07/14/16 22:43 200 MG Tramadol HCl (Ultram Tab) 25 mg NOW STAT PO 07/14/16 22:24 07/14/16 22:25 DC 07/14/16 22:43 25 MG Lab Results Last 24 Hrs: Last 24 Hours Test 07/15/16 17:18 07/16/16 07:57 Bedside Glucose 99 mg/dl 113 mg/dl
[2016-07-16] MEDS: HALOPERIDOL 5 MG TAB PO PRN (12:34)
[2016-07-16 20:47] VITALS: BP 152/88; PULSE 91
[2016-07-16] MEDS: LITHIUM CARBONATE SR 300 MG TAB (LITHOBID) PO SCH (20:50)
[2016-07-17 06:55] VITALS: BP_SYST 124; BP_SYST 132; BP_DIAS 84; BP_DIAS 86; PULSE 89; PULSE 98; TEMP 37.1
[2016-07-17] MEDS: LEVOTHYROXINE 75 MCG TAB PO SCH (08:13)
[2016-07-17] MEDS: GLIMEPIRIDE 2 MG TAB PO SCH (08:39)
[2016-07-17] MEDS: HYDROCHLOROTHIAZIDE 25 MG TAB PO SCH (08:40)
[2016-07-17] MEDS: METOPROLOL TARTRATE 50 MG TAB PO SCH ×2 (08:41→21:25)
[2016-07-17] MEDS: AMLODIPINE BESYLATE 5 MG TAB PO SCH (08:42)
[2016-07-17] MEDS: PREGABALIN 100 MG CAP PO SCH ×2 (08:42→21:24)
[2016-07-17] MEDS: TRAMADOL HCL 50 MG TAB PO SCH (08:43)
[2016-07-17] MEDS: LISINOPRIL 2.5 MG TAB PO SCH (08:43)
[2016-07-17] MEDS: hydrOXYzine HCL 25 MG TAB PO PRN ×2 (08:43→16:04)
[2016-07-17] MEDS: HALOPERIDOL 5 MG TAB PO PRN ×2 (09:27→13:28)
[2016-07-17] MEDS ORDERED: ESCITALOPRAM OXALATE 10 MG TAB PO ONE (12:52)
--- NOTE | 2016-07-17 12:52 | Psychiatric Progress Notes ---
Progress Note Date of Service Jul 17, 2016. Interval History Magaly Robert is a 36-year-old woman from [place], [place], admitted to our mental health unit on a voluntary basis with personality disorder and an exacerbation of bipolar disorder including angry outbursts and tics. She is unable to be managed outside of a structured environment. Chief Complaint "I'm so depressed". Subjective Patient was seen & assessed interval progress reviewed with Treatment Team. The patient just came from a meeting by phone with her fiance. She says that he is concerned because he has never seen her this depressed. She admits that she has not been helping around the house at all and spends all of her free time in bed when not at [facility]. "I just don't feel like it.". They also talked about the fact that they don't do anything together anymore, she saying that her 15 yo son has a "fit" when they won't take him along. She says that they have never been in family therapy. She did not like getting out of bed this AM and became angry when asked to get out of bed, requesting a prn of haldol when she did. She denies SI, denies voices. She reports continued verbal expressions, but nursing says that they are few, and no physical tics. She says that she feels "useless". Amilcar and son visited last evening and she told them to leave, "I don't know why.". We talked about behavioral interventions to use when feeling anxious/depressed/irritable, ie walking, exercise bike, chores, but she resists this again saying "I don't feel like it. ". Reminded her that she should remember "Actions first, feelings second.". Review of Systems Constitutional: + fatigue ENT: No dental problems, No hearing loss, No nasal symptoms, No problem reported, No sore throat, No tinnitus, No trouble swallowing, No unusual epistaxis Respiratory: No cough, No dyspnea at rest, No dyspnea on exertion, No hemoptysis, No problem reported, No shortness of breath, No sputum, No wheezing Cardiovascular: No PND, No chest pain, No claudication, No edema, No orthopnea , No palpitations, No problem reported Abdomen: No GI bleeding, No constipation, No diarrhea, No nausea, No pain, No problem reported, No vomiting Musculoskeletal: No calf pain, No joint pain, No muscle pain, No problem reported, No swelling Neurologic: No balance problems, No memory loss, No numbness/tingling, No paralysis, No problem reported, No vertigo, No weakness Psychiatric: + anxiety, + depression symptoms, + problem reported (irritability ) Integumentary: No bleeding, No color change, No itch, No new/changing skin lesions, No problem reported, No rash Sleep Information Total Hours of Sleep: 7.50 Meal Information Percent of Breakfast Consumed: 100 Percent of Lunch Consumed: 100 Percent of Dinner Consumed: 100 Mental Status Exam During interview pt is: alert and oriented, cooperative Appearance: appropriately dressed, appropriately groomed Eye contact is: fair Motor behavior is: no abnormal motor movements (no head-bobbing or other motor tics observed) Speech: normal in rate, rhythm & volume (at times appears to be whispering under her breath, but is able to speak clearly without verbal tics) Affect: mood congruent, depressed, irritable Mood is: depressed, irritable Thought process: goal directed Thought content: reality based without delusions Suicidal thought are: denied Homicidal thoughts are: denied Hallucinations: denies auditory, denies visual Cognition: memory grossly intact, attention grossly intact, language grossly intact Intelligence estimated to be: average Insight: impaired Judgement: impaired Medication Trials (1) Past Psych Medications Include but are not limited to: 1. Thorazine -- rash. 2. Topamax - increase in anxiety. 3. Depakote -- weight gain. 4. Trazodone -- rash. 5. Risperdal -- swollen tongue and stiffness. 6. Wellbutrin -- ineffective. 7. Haldol --? did receive in the ER last night without side effect. 8. Viibryd -- rash. 9. Prednisone -- rash. 10. Multiple SSRIs including Prozac, Zoloft, Lexapro and Celexa -- ineffective. 11. Effexor -- ? 12. Elavil -- ? 13. Doxepin - DC'd due do hyperammonemia. 14. Abilify -- did not work. 15. Zyprexa -- ? 16. Neurontin -- ? Last Edited By: Linda Lawson on Jul 16, 2016 10:32 Impression There have been no motor tics since admission, and verbal mutterings (not really tics) have been minimal. She and fiance focused on depression. She would like to try an antidepressant. Reviewed the risks for activation with bipolar disorder. Will trial low dose Lexapro 5 mg. daily, and encouraged to focus on behavioral strategies. We will continue to employ door locking if needed to facilitate group attendance Plan (1) Bipolar 1 disorder 07/15-- low suspicion that this is a dyskinesia and so will discontinue Cogentin 1 mg b.i.d. and remain off Latuda. -- will use Haldol 5 mg q. 4 hours p.r.n. for agitation. I have informed the patient that verbal or physical aggression will not be tolerated here in the mental health unit. -- we will observe for the next 24 hours to see the pattern of her verbal and physical tics. -- we will continue all of her other outpatient medications. [place] level today 0.8. -- q. 15-minute checks for safety. -- encourage participation in group and individual counseling. -- encouraged the patient to be out of bed during the day and establish good day -night cycles. -- family meeting. -- coordinate with outpatient providers. 07/17 - Start low dose lexapro 5 mg. daily - FAmily meeting held today - give strong encouragement to use behavioral strategies. (2) Excessive anger Bipolar disorder and personality disorder both contributing. Can use Haldol as above. Encourage group attendance and participation to work on healthy ways to cope and safety planning. (3) Tic Patient presents with vocal and motor tic. She states she's had these before, but is a poor historian for previous episodes. There does appear to be some degree of voluntary control of the tics, and first-line treatment is behavioral therapy (CBT, habit reversal training, or exposure and response prevention) and treatment of psychiatric comorbidities. If these are ineffective and tics continue, could consider a trial of medication to target them, such as clonidine or guanfacine. 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 Patient to be reminded of appropriate behavior and boundaries while on the unit. (5) Hypertension continue home dose of amlodipine. Monitor. (6) Hypothyroid Continue home dose of Synthroid 75 mcg daily. TSH within normal limits. (7) Fibromyalgia -- will make tramadol p.r.n. rather than scheduled due to her reports of somnolence during the day. (8) Diabetes -- continue Amaryl with blood sugars b.i.d. Discharge / Aftercare Planning Primary Care Physician: Name: Dr. Payton Open Die Inspector: Name: Jennifer Li Visit Code E&M Code: 34815 Risk Factors Assessment : Yes /single/: No Higher / Fall in social status: No Access to guns: No Health problems: Yes Mental Health Diagnoses: Yes Substance use disorders: No Previous attempt: Yes Family history of suicide: Yes Previous psychiatric stay: Yes Smoker: No Protective Factors Assessment : Yes Responsible for young children: Yes Employed: No Supportive family: Yes Data Vital Signs Last 24 Hrs: Date Time Temp Pulse Resp B/P Pulse Ox O2 Delivery O2 Flow Rate FiO2 07/17/16 06:55 37.1 89 18 132/84 98 124/86 07/16/16 20:47 91 18 152/88 Meds Administered Last 24 Hrs: Meds Administered (Past 24Hrs) Medications (Trade) Dose Ordered Sig/Roge Route Start Time Stop Time Status Last Admin Dose Admin [place] Carbonate (Lithobid Tab) 900 mg HS PO 07/15/16 21:00 08/14/16 20:59 07/16/16 20:50 900 MG Haloperidol (Haldol Tab) 2.5 mg Q4H PRN PO 07/16/16 13:30 08/15/16 13:29 07/17/16 09:27 2.5 MG Lab Results Last 24 Hrs: Last 24 Hours Test 07/16/16 16:36 07/17/16 08:14 Bedside Glucose 95 mg/dl 112 mg/dl
[2016-07-17] MEDS: LITHIUM CARBONATE SR 300 MG TAB (LITHOBID) PO SCH (21:24)
[2016-07-17 21:26] VITALS: BP 131/84; PULSE 96
[2016-07-18 06:41] VITALS: BP_SYST 114; BP_DIAS 71; BP_DIAS 77; PULSE 81; PULSE 89; TEMP 36.9
[2016-07-18] MEDS: GLIMEPIRIDE 2 MG TAB PO SCH (08:28)
[2016-07-18] MEDS: LEVOTHYROXINE 75 MCG TAB PO SCH (08:28)
[2016-07-18] MEDS: ESCITALOPRAM OXALATE 10 MG TAB PO SCH (08:28)
[2016-07-18] MEDS: PREGABALIN 100 MG CAP PO SCH ×2 (08:29→21:08)
[2016-07-18] MEDS: METOPROLOL TARTRATE 50 MG TAB PO SCH ×2 (08:30→21:08)
[2016-07-18] MEDS: hydrOXYzine HCL 25 MG TAB PO PRN ×2 (08:30→13:18)
[2016-07-18] MEDS: HYDROCHLOROTHIAZIDE 25 MG TAB PO SCH (08:31)
[2016-07-18] MEDS: LISINOPRIL 2.5 MG TAB PO SCH (08:31)
[2016-07-18] MEDS: AMLODIPINE BESYLATE 5 MG TAB PO SCH (08:31)
--- NOTE | 2016-07-18 12:05 | Psychiatric Progress Notes ---
Progress Note Date of Service Jul 18, 2016. Interval History Magaly Robert is a 36-year-old woman from [place], [place], admitted to our mental health unit on a voluntary basis with personality disorder and an exacerbation of bipolar disorder including angry outbursts and tics. She is unable to be managed outside of a structured environment. Chief Complaint "I'm not myself". Subjective Patient was seen & assessed interval progress reviewed with Treatment Team. The patient continues to report significant depression and anxiety, "I'm not myself". She says that she is "easily pissed off", and once again sent her family home early last night. The phone system is down, and she is angry at that as well. She has showered today, and did her laundry yesterday, but still resists pushing herself to do anything when she doesn't want to. Will not engage in discussion about setting small goals for activity/exercise, or reaching out to others. She rates her mood 5/10 and denies active SI, but says she thinks that life is not worth living. She denies aud/vis hallucinations. No evidence of muscular tics or verbal mutterings or tics. Review of Systems Constitutional: + fatigue ENT: No dental problems, No hearing loss, No nasal symptoms, No problem reported, No sore throat, No tinnitus, No trouble swallowing, No unusual epistaxis Respiratory: No cough, No dyspnea at rest, No dyspnea on exertion, No hemoptysis, No problem reported, No shortness of breath, No sputum, No wheezing Cardiovascular: No PND, No chest pain, No claudication, No edema, No orthopnea , No palpitations, No problem reported Abdomen: No GI bleeding, No constipation, No diarrhea, No nausea, No pain, No problem reported, No vomiting Musculoskeletal: No calf pain, No joint pain, No muscle pain, No problem reported, No swelling Neurologic: No balance problems, No memory loss, No numbness/tingling, No paralysis, No problem reported, No vertigo, No weakness Psychiatric: + anxiety, + depression symptoms Integumentary: No bleeding, No color change, No itch, No new/changing skin lesions, No problem reported, No rash Sleep Information Total Hours of Sleep: 8.25 Meal Information Percent of Breakfast Consumed: 50 Percent of Lunch Consumed: 100 Percent of Dinner Consumed: 35 Mental Status Exam During interview pt is: alert and oriented, cooperative Appearance: appropriately dressed, appropriately groomed Eye contact is: fair Motor behavior is: no abnormal motor movements (no head-bobbing or other motor tics observed) Speech: normal in rate, rhythm & volume (at times appears to be whispering under her breath, but is able to speak clearly without verbal tics) Affect: mood congruent, depressed, irritable Mood is: depressed, irritable, anxious Thought process: goal directed Thought content: reality based without delusions Suicidal thought are: denied Homicidal thoughts are: denied Hallucinations: denies auditory, denies visual Cognition: memory grossly intact, attention grossly intact, language grossly intact Intelligence estimated to be: average Insight: impaired Judgement: impaired Medication Trials (1) Past Psych Medications Include but are not limited to: 1. Thorazine -- rash. 2. Topamax - increase in anxiety. 3. Depakote -- weight gain. 4. Trazodone -- rash. 5. Risperdal -- swollen tongue and stiffness. 6. Wellbutrin -- ineffective. 7. Haldol --? did receive in the ER last night without side effect. 8. Viibryd -- rash. 9. Prednisone -- rash. 10. Multiple SSRIs including Prozac, Zoloft, Lexapro and Celexa -- ineffective. 11. Effexor -- ? 12. Elavil -- ? 13. Doxepin - DC'd due do hyperammonemia. 14. Abilify -- did not work. 15. Zyprexa -- ? 16. Neurontin -- ? Last Edited By: Linda Lawson on Jul 16, 2016 10:32 Impression Remains depressed anxious and irritable. Is attending groups, but leaves frequently, and does not appear to be invested in making changes or to push herself beyond what is comfortable. Encouraged to choose one small goal for the day and to feel successful if she accomplishes it. Lexapro 5 mg. just started yesterday. Could consider increase to 10 mg. over the weekend if no activation. Plan (1) Bipolar 1 disorder 07/15-- low suspicion that this is a dyskinesia and so will discontinue Cogentin 1 mg b.i.d. and remain off Latuda. -- will use Haldol 5 mg q. 4 hours p.r.n. for agitation. I have informed the patient that verbal or physical aggression will not be tolerated here in the mental health unit. -- we will observe for the next 24 hours to see the pattern of her verbal and physical tics. -- we will continue all of her other outpatient medications. [place] level today 0.8. -- q. 15-minute checks for safety. -- encourage participation in group and individual counseling. -- encouraged the patient to be out of bed during the day and establish good day -night cycles. -- family meeting. -- coordinate with outpatient providers. 07/17 - Start low dose lexapro 5 mg. daily - FAmily meeting held today - give strong encouragement to use behavioral strategies. 07/18 - Continue current meds - Encourage patient to be out of bed, exercise, small goals (2) Excessive anger Bipolar disorder and personality disorder both contributing. Can use Haldol as above. Encourage group attendance and participation to work on healthy ways to cope and safety planning. (3) Tic Patient presents with vocal and motor tic. She states she's had these before, but is a poor historian for previous episodes. There does appear to be some degree of voluntary control of the tics, and first-line treatment is behavioral therapy (CBT, habit reversal training, or exposure and response prevention) and treatment of psychiatric comorbidities. If these are ineffective and tics continue, could consider a trial of medication to target them, such as clonidine or guanfacine. 07/18 - limited insight into condition. Will need strong, consistent encouragement. 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 Patient to be reminded of appropriate behavior and boundaries while on the unit. (5) Hypertension continue home dose of amlodipine. Monitor. (6) Hypothyroid Continue home dose of Synthroid 75 mcg daily. TSH within normal limits. (7) Fibromyalgia -- will make tramadol p.r.n. rather than scheduled due to her reports of somnolence during the day. (8) Diabetes -- continue Amaryl with blood sugars b.i.d. Discharge / Aftercare Planning Primary Care Physician: Name: Dr. Payton Writer Producer: Name: Jennifer Li Visit Code E&M Code: 26632 Risk Factors Assessment : Yes /single/: No Higher / Fall in social status: No Access to guns: No Health problems: Yes Mental Health Diagnoses: Yes Substance use disorders: No Previous attempt: Yes Family history of suicide: Yes Previous psychiatric stay: Yes Smoker: No Protective Factors Assessment : Yes Responsible for young children: Yes Employed: No Supportive family: Yes Data Vital Signs Last 24 Hrs: Date Time Temp Pulse Resp B/P Pulse Ox O2 Delivery O2 Flow Rate FiO2 07/18/16 06:41 36.9 81 16 114/77 89 114/71 07/17/16 21:26 96 16 131/84 Meds Administered Last 24 Hrs: Meds Administered (Past 24Hrs) Medications (Trade) Dose Ordered Sig/Roge Route Start Time Stop Time Status Last Admin Dose Admin Haloperidol (Haldol Tab) 2.5 mg Q4H PRN PO 07/16/16 13:30 08/15/16 13:29 07/17/16 13:28 2.5 MG Escitalopram Oxalate (Lexapro Tab) 5 mg QAM PO 07/18/16 09:00 08/17/16 08:59 07/18/16 08:28 5 MG Escitalopram Oxalate (Lexapro Tab) 5 mg 1252 ONCE PO 07/17/16 12:52 07/17/16 13:12 DC 07/17/16 13:27 5 MG Lab Results Last 24 Hrs: Last 24 Hours Test 07/17/16 16:06 07/18/16 08:24 Bedside Glucose 88 mg/dl 115 mg/dl
[2016-07-18] MEDS: HALOPERIDOL 5 MG TAB PO PRN (17:49)
[2016-07-18 21:07] VITALS: BP 144/85; PULSE 91
[2016-07-18] MEDS: LITHIUM CARBONATE SR 300 MG TAB (LITHOBID) PO SCH (21:08)
[2016-07-18] MEDS: TRAMADOL HCL 50 MG TAB PO PRN (22:31)
[2016-07-19 06:43] VITALS: BP_SYST 125; BP_SYST 127; BP_DIAS 79; BP_DIAS 80; PULSE 79; PULSE 83; TEMP 36.8
[2016-07-19 06:48] VITALS: Ht 154.9 cm; Wt 102.0 kg
--- NOTE | 2016-07-19 07:42 | Psychiatric Progress Notes ---
Progress Note Date of Service Jul 19, 2016. Interval History Magaly Robert is a 36-year-old woman from [place], [place], admitted to our mental health unit on a voluntary basis with personality disorder and an exacerbation of bipolar disorder including angry outbursts and tics. She is unable to be managed outside of a structured environment. Chief Complaint "[]". Subjective Patient was seen & assessed interval progress reviewed with Nursing She has been attending programming and participating. Maggie is very supportive and did not sent him home early. She did appear anxious and depressed and maggie expressed to staff that it was nice to see her emote in ways other than anger. She is on day 3 of lexapro 5mg and not appearing any more labile to staff, but rather is acting less reactive/child-like/irritable and continues appearing depressed. She describes that she "does not remember" what was going on prior to her outburst at psych rehab. SHe does recall that she was sleeping the majority of the preceding two weekends at home and feels worse off the latuda but the verbal ticks are less and the head bobbing is ongoing but less. WHen pressed she is able to do a basic chain of analysis often saying "I don't remember" but when presented with history from the chart agrees that she was irritable at psych rehab and with Dr Schroeder and why that resulted in her verbally being irritable in those settings and in the [facility] ER. She states she is not sure if the lexapro 5mg is helping has a mild PLASCENCIA and some looser stools but denies feeling worse. SHe continues to have hopeless thoughts but denies active suicidal ideation intention or plan. She has limited insight on how to recognize her thoughts and feelings and how she would keep from throwing a chair again if she became overwhelmed. Encouraged her to attend groups as she has done in the last day so she can gain skills but also to see how she tolerates being around others which will be a necessary demonstration prior to discharge. DIscussed r/b/se/a of increase of lexapro most notably in bipolar depression, and she affirms understanding and agrees with this plan Review of Systems As noted above, low grade PLASCENCIA, and looser bowels, denies other overt physical concerns at this time, intact appetite Sleep Information Total Hours of Sleep: 7.25 Meal Information Percent of Breakfast Consumed: 50 Percent of Lunch Consumed: 100 Percent of Dinner Consumed: 100 Mental Status Exam During interview pt is: alert and oriented, cooperative Appearance: appropriately dressed, appropriately groomed Eye contact is: fair Motor behavior is: no abnormal motor movements (about every 1-2 min had a head- bobbing, no other motor tics observed) Speech: normal in rate, rhythm & volume (no whispering to self and is cooparative, only speaks in response to questions) Affect: mood congruent, depressed, irritable Mood is: depressed, irritable, anxious Thought process: goal directed Thought content: reality based without delusions Suicidal thought are: denied Homicidal thoughts are: denied Hallucinations: denies auditory, denies visual Cognition: memory grossly intact, attention grossly intact, language grossly intact Intelligence estimated to be: average Insight: impaired Judgement: impaired Medication Trials (1) Past Psych Medications Include but are not limited to: 1. Thorazine -- rash. 2. Topamax - increase in anxiety. 3. Depakote -- weight gain. 4. Trazodone -- rash. 5. Risperdal -- swollen tongue and stiffness. 6. Wellbutrin -- ineffective. 7. Haldol --? did receive in the ER last night without side effect. 8. Viibryd -- rash. 9. Prednisone -- rash. 10. Multiple SSRIs including Prozac, Zoloft, Lexapro and Celexa -- ineffective. 11. Effexor -- ? 12. Elavil -- ? 13. Doxepin - DC'd due do hyperammonemia. 14. Abilify -- did not work. 15. Zyprexa -- ? 16. Neurontin -- ? Last Edited By: Linda Lawson on Jul 16, 2016 10:32 Impression Remains depressed and reports that she feels anxious and irritable. Is attending groups first leaving frequently but over 07/18 into 07/19 is now staying in the groups. She seems passive to staff but engages with this provider in listening to ideas about identifying thoughts and feelings that are cues to irritability/outbursts , as well as discussing medications Plan (1) Bipolar 1 disorder 07/15-- low suspicion that this is a dyskinesia and so will discontinue Cogentin 1 mg b.i.d. and remain off Latuda. -- will use Haldol 5 mg q. 4 hours p.r.n. for agitation. I have informed the patient that verbal or physical aggression will not be tolerated here in the mental health unit. -- we will observe for the next 24 hours to see the pattern of her verbal and physical tics. -- we will continue all of her other outpatient medications. [place] level today 0.8. -- q. 15-minute checks for safety. -- encourage participation in group and individual counseling. -- encouraged the patient to be out of bed during the day and establish good day -night cycles. -- family meeting. -- coordinate with outpatient providers. 07/17 - Start low dose lexapro 5 mg. daily - FAmily meeting held today - give strong encouragement to use behavioral strategies. 07/18 - Continue current meds - Encourage patient to be out of bed, exercise, small goals 07/19/16 - continue current meds, increasing lexapro to total of 10mg today to target ongoing low mood and irritability as there is no evidence of activation and per staff and fiancee possibly less reactive and irritable the last day, watch for mood stability - her lithium likely leads to the nighttime urinary frequency for now given polpharmacy hx and failure will continue but commenting on this for awareness sake - encouraged her to engage in groups and remain out of her room which she is willing to do (2) Excessive anger Bipolar disorder and personality disorder both contributing. Can use Haldol as above. Encourage group attendance and participation to work on healthy ways to cope and safety planning. She would benefit from DBT based program but this is not readily available in the [facility] (3) Tic Patient presents with vocal and motor tic. She states she's had these before, but is a poor historian for previous episodes. There does appear to be some degree of voluntary control of the tics, and first-line treatment is behavioral therapy (CBT, habit reversal training, or exposure and response prevention) and treatment of psychiatric comorbidities. If these are ineffective and tics continue, could consider a trial of medication to target them, such as clonidine or guanfacine. 07/18 - limited insight into condition. Will need strong, consistent encouragement. 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 Patient to be reminded of appropriate behavior and boundaries while on the unit. Again she would benefit from DBT based program which is not readily available in the [facility]. (5) Hypertension continue home dose of amlodipine. Monitor. (6) Hypothyroid Continue home dose of Synthroid 75 mcg daily. TSH within normal limits. (7) Fibromyalgia -- will make tramadol p.r.n. rather than scheduled due to her reports of somnolence during the day. (8) Diabetes -- continue Amaryl with blood sugars b.i.d. Discharge / Aftercare Planning Primary Care Physician: Name: Dr. Payton Signal Operator: Name: Jennifer Joegler Visit Code E&M Code: 54601 Risk Factors Assessment : Yes /single/: No Higher / Fall in social status: No Access to guns: No Health problems: Yes Mental Health Diagnoses: Yes Substance use disorders: No Previous attempt: Yes Family history of suicide: Yes Previous psychiatric stay: Yes Smoker: No Protective Factors Assessment : Yes Responsible for young children: Yes Employed: No Supportive family: Yes Data Vital Signs Last 24 Hrs: Date Time Temp Pulse Resp B/P Pulse Ox O2 Delivery O2 Flow Rate FiO2 07/19/16 06:43 36.8 79 17 127/80 83 125/79 07/18/16 21:07 91 16 144/85 Meds Administered Last 24 Hrs: Meds Administered (Past 24Hrs) Medications (Trade) Dose Ordered Sig/Roge Route Start Time Stop Time Status Last Admin Dose Admin Tramadol HCl (Ultram Tab) 25 mg BID PRN PO 07/17/16 13:00 08/16/16 12:59 07/18/16 22:31 25 MG Escitalopram Oxalate (Lexapro Tab) 5 mg QAM PO 07/18/16 09:00 08/17/16 08:59 07/18/16 08:28 5 MG Escitalopram Oxalate (Lexapro Tab) 5 mg 1252 ONCE PO 07/17/16 12:52 07/17/16 13:12 DC 07/17/16 13:27 5 MG Lab Results Last 24 Hrs: Last 24 Hours Test 07/18/16 08:24 07/18/16 17:15 Bedside Glucose 115 mg/dl 93 mg/dl
[2016-07-19] MEDS: LEVOTHYROXINE 75 MCG TAB PO SCH (08:15)
[2016-07-19] MEDS: GLIMEPIRIDE 2 MG TAB PO SCH (09:04)
[2016-07-19] MEDS: HYDROCHLOROTHIAZIDE 25 MG TAB PO SCH (09:05)
[2016-07-19] MEDS: ESCITALOPRAM OXALATE 10 MG TAB PO SCH (09:05)
[2016-07-19] MEDS: METOPROLOL TARTRATE 50 MG TAB PO SCH ×2 (09:06→21:33)
[2016-07-19] MEDS: PREGABALIN 100 MG CAP PO SCH ×2 (09:06→21:34)
[2016-07-19] MEDS: AMLODIPINE BESYLATE 5 MG TAB PO SCH (09:07)
[2016-07-19] MEDS: LISINOPRIL 2.5 MG TAB PO SCH (09:07)
[2016-07-19] MEDS ORDERED: ESCITALOPRAM OXALATE 10 MG TAB PO ONE (10:45)
[2016-07-19] MEDS: HALOPERIDOL 5 MG TAB PO PRN ×2 (11:04→19:19)
[2016-07-19] MEDS: TRAMADOL HCL 50 MG TAB PO PRN (20:01)
[2016-07-19 21:18] VITALS: BP 127/84; PULSE 94
[2016-07-19] MEDS: LITHIUM CARBONATE SR 300 MG TAB (LITHOBID) PO SCH (21:33)
[2016-07-20 06:47] VITALS: BP_SYST 133; BP_SYST 134; BP_DIAS 83; BP_DIAS 86; PULSE 72; PULSE 79; TEMP 37.1
[2016-07-20] MEDS: LEVOTHYROXINE 75 MCG TAB PO SCH (08:24)
--- NOTE | 2016-07-20 08:26 | Psychiatric Progress Notes ---
Progress Note Date of Service Jul 20, 2016. Interval History Magaly Robert is a 36-year-old woman from [place], [place], admitted to our mental health unit on a voluntary basis with personality disorder and an exacerbation of bipolar disorder including angry outbursts and tics. She is unable to be managed outside of a structured environment. Chief Complaint "Up and down". Subjective Patient was seen & assessed interval progress reviewed with Nursing, and chart reviewed. SHe had requested prn haldol 2.5mg x2 for agitation, appearing better in evening community group. She is not having motor tics, she continues to have head bobbing seems to be worse with stress. She was able to tolerate family visit yesterday and did not send them home early , and she even expressed disappointment that they did not come back for second time later in the day. She is participating in the [facility] milieu. She notes she was able to laugh yesterday and enjoy family. But then was down and irritatated last PM with rap music another patient was playing on the unit. SHe has no insight to factors that could be impacting her mood when asked but then when provider states "do you think your disappointment with family not being able to return was causing you to feel down?" she says "yes." She states she has long standing difficulties with her memory "years" and this is unchanged , she slept well and denies increased goal directed activity, flight of ideas or increased energy or creativity. SHe denies current SI, but also shows limited insight on how to control her emotions as she was angry and swearing "and saying mean things" on the phone last night to her fiancee. SHe feels "depressed" Cerebellar Focussed Neurologic Exam: Patient seen by this provider in the exam room, she has stable gait. Focussed neurologic exam has mild tremor of the fingers on arm extension, no intention tremor SHe can to finger to nose with some finger shaking at the end extension touching my finger, cannot rule out emergence of the tremor OR mild dsymetria, but no past pointing or gross dysmetria She has poor Rapid alternating movements diadachodiskinesia unable to repeat the task unless painstakingly slow. She also unable to do finger-thumb touching in sequence fast as she becomes inaccurate and dyscoordinated EOM intact no nystagmus She has negative rhomberg, she has some imbalance with heel to toe walking after 3-4 stable steps. No pronation of her arms when holding them out with eyes closed. CN 2-12 intact. Review of Systems No other sx than noted above Sleep Information Total Hours of Sleep: 6.75 Meal Information Percent of Breakfast Consumed: 100 Percent of Lunch Consumed: 100 Percent of Dinner Consumed: 95 Mental Status Exam During interview pt is: alert and oriented, cooperative Appearance: appropriately dressed, appropriately groomed Eye contact is: fair Motor behavior is: steady gait & station, no abnormal motor movements, other ( head rosalio about every 3-60 seconds, at times there is an additional grimace type component when head is bent to chest which is new to this provider today; no vocal tics, no other remarkable PMA) Speech: normal in rate, rhythm & volume (no whispering to self and is cooparative, only speaks in response to questions) Affect: mood congruent, depressed, irritable Mood is: depressed, irritable, anxious Thought process: goal directed Thought content: reality based without delusions Suicidal thought are: denied Homicidal thoughts are: denied Hallucinations: denies auditory, denies visual Cognition: memory grossly intact, attention grossly intact, language grossly intact Intelligence estimated to be: average Insight: impaired Judgement: impaired Medication Trials (1) Past Psych Medications Include but are not limited to: 1. Thorazine -- rash. 2. Topamax - increase in anxiety. 3. Depakote -- weight gain. 4. Trazodone -- rash. 5. Risperdal -- swollen tongue and stiffness. 6. Wellbutrin -- ineffective. 7. Haldol --? did receive in the ER last night without side effect. 8. Viibryd -- rash. 9. Prednisone -- rash. 10. Multiple SSRIs including Prozac, Zoloft, Lexapro and Celexa -- ineffective. 11. Effexor -- ? 12. Elavil -- ? 13. Doxepin - DC'd due do hyperammonemia. 14. Abilify -- did not work. 15. Zyprexa -- ? 16. Neurontin -- ? 17. Seroquel XR 300mg worked well caused weight gain (eventually abilify was added to it), metformin 500mg po bid caused GI distress 18. Parrish - 900mg/hs most common dose, toxic on 900 and 1200 while on HCTZ, was on 450mg in 07/2015, then sometime between 11/2015 and 02/2016 it was returned to 900mg/hs Last Edited By: Edna Joseph on Jul 20, 2016 10:07 Impression Remains depressed and reports that she feels anxious and irritable. Is attending groups first leaving frequently but over 07/18 into 07/19 is now staying in the groups. SHe seems more able to tolerate family visits and even then is low after they leave. She seems to have limited ability for self observation beyond reporting events, but when lead to discuss triggers and contributing factors she is able to develop some insight. Her motor movements are an enigma, on one hand they act like ataxia head bobbing , and in another way they act like a tic. Medications that can worsen ataxia include lithium, lamictal and lyrica. Parrish is the only one that was increased in the last year and possibly fits with the timeline of head bobbing. The vocal tic is resolved off latuda, but the grimace at the end of some of the head bobs remains which could be her prn haldol potentiating a tic. SHe has had tics before with benefit from clonidine but it was too sedating but on chart reveiw she was on a different constellation of medications at that time and a long time in between tic behaviors. Plan (1) Bipolar 1 disorder 07/15-- low suspicion that this is a dyskinesia and so will discontinue Cogentin 1 mg b.i.d. and remain off Latuda. -- will use Haldol 5 mg q. 4 hours p.r.n. for agitation. I have informed the patient that verbal or physical aggression will not be tolerated here in the mental health unit. -- we will observe for the next 24 hours to see the pattern of her verbal and physical tics. -- we will continue all of her other outpatient medications. [place] level today 0.8. -- q. 15-minute checks for safety. -- encourage participation in group and individual counseling. -- encouraged the patient to be out of bed during the day and establish good day -night cycles. -- family meeting. -- coordinate with outpatient providers. 07/17 - Start low dose lexapro 5 mg. daily - FAmily meeting held today - give strong encouragement to use behavioral strategies. 07/18 - Continue current meds - Encourage patient to be out of bed, exercise, small goals 07/19/16 - continue current meds, increasing lexapro to total of 10mg today to target ongoing low mood and irritability as there is no evidence of activation and per staff and fiancee possibly less reactive and irritable the last day, watch for mood stability - her lithium likely leads to the nighttime urinary frequency for now given polpharmacy hx and failure will continue but commenting on this for awareness sake - encouraged her to engage in groups and remain out of her room which she is willing to do 07/20/16 - will get lithium level this AM to get a true 5day level, and even if not toxic will lower lithium from 900mg/hs to 450mg/hs to see if tic/ataxia subsides , watching mood as she has clear benefit repeatedly from lithium for irritability and mood stability - will stop prn haldol as it could potentiate lithium and could worsen tics. WIll instead use prn seroquel as less likely to exacerbate tics/ataxia and then if mood is irritable/labile ongoing consider increasing to mood doses of 200mg watching weight (possibly returning to low dose of metformin 500mg/d as 500mg po bid in the past caused weight gain) - continue lamictal 200mg/d at this time as this has not been changed in the last year and this provider is unclear if a cumulative effect could be somehow causal or not - continue 10mg lexapro although rare movement disorders are described this is unlikely culprit as the head bobbing and vocal tic preceded this admission. SHe seems mildly improved as she is more able to tolerate her family and when irritable she is less explosive - last fasting labs on file 08/11/15 WNL will order for 07/21/16 - EKG given we are adding prn seroquel to lithium and lexapro (stop hydroxyzine to reduce any unnecessary QTc prolonging medications) (2) Excessive anger Bipolar disorder and personality disorder both contributing. Can use Haldol as above. Encourage group attendance and participation to work on healthy ways to cope and safety planning. She would benefit from DBT based program but this is not readily available in the [facility] Frank thomaslorena benefit from family portion to reinforce effective communication and stop reinforcing escalating communication. (3) Tic Patient presents with vocal and motor tic. She states she's had these before, but is a poor historian for previous episodes. There does appear to be some degree of voluntary control of the tics, and first-line treatment is behavioral therapy (CBT, habit reversal training, or exposure and response prevention) and treatment of psychiatric comorbidities. If these are ineffective and tics continue, could consider a trial of medication to target them, such as clonidine or guanfacine. 07/18 - limited insight into condition. Will need strong, consistent encouragement. 07/20/16 - differential is tic vs. cerebellar ataxia of head bobbing - see plan to lower lithium and stop haldol, using seroquel prn for agitation , and differential listed as above. 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 Patient to be reminded of appropriate behavior and boundaries while on the unit. Again she would benefit from DBT based program which is not readily available in the [facility]. (5) Hypertension continue home dose of amlodipine. Monitor. (6) Hypothyroid Continue home dose of Synthroid 75 mcg daily. TSH within normal limits. (7) Fibromyalgia -- will make tramadol p.r.n. rather than scheduled due to her reports of somnolence during the day. (8) Diabetes -- continue Amaryl with blood sugars b.i.d. Discharge / Aftercare Planning Primary Care Physician: Name: Dr. Payton Beef Selector: Name: Jennifer Jen Visit Code E&M Code: 22680 Risk Factors Assessment : Yes /single/: No Higher / Fall in social status: No Access to guns: No Health problems: Yes Mental Health Diagnoses: Yes Substance use disorders: No Previous attempt: Yes Family history of suicide: Yes Previous psychiatric stay: Yes Smoker: No Protective Factors Assessment : Yes Responsible for young children: Yes Employed: No Supportive family: Yes Data Vital Signs Last 24 Hrs: Date Time Temp Pulse Resp B/P Pulse Ox O2 Delivery O2 Flow Rate FiO2 07/20/16 06:47 37.1 72 16 134/83 79 133/86 07/19/16 21:18 94 18 127/84 Meds Administered Last 24 Hrs: Meds Administered (Past 24Hrs) Medications (Trade) Dose Ordered Sig/Roge Route Start Time Stop Time Status Last Admin Dose Admin Escitalopram Oxalate (Lexapro Tab) 5 mg QAM PO 07/18/16 09:00 07/19/16 10:22 DC 07/19/16 09:05 5 MG Escitalopram Oxalate (Lexapro Tab) 5 mg NOW ONCE PO 07/19/16 10:45 07/19/16 10:46 DC 07/19/16 11:04 5 MG Lab Results Last 24 Hrs: Last 24 Hours Test 07/19/16 08:18 07/19/16 17:16 Bedside Glucose 98 mg/dl 91 mg/dl
[2016-07-20] MEDS: GLIMEPIRIDE 2 MG TAB PO SCH (09:09)
[2016-07-20] MEDS: HYDROCHLOROTHIAZIDE 25 MG TAB PO SCH (09:10)
[2016-07-20] MEDS: ESCITALOPRAM OXALATE 10 MG TAB PO SCH (09:11)
[2016-07-20] MEDS: METOPROLOL TARTRATE 50 MG TAB PO SCH ×2 (09:12→21:25)
[2016-07-20] MEDS: PREGABALIN 100 MG CAP PO SCH ×2 (09:13→21:25)
[2016-07-20] MEDS: AMLODIPINE BESYLATE 5 MG TAB PO SCH (09:13)
[2016-07-20] MEDS: LISINOPRIL 2.5 MG TAB PO SCH (09:13)
[2016-07-20] MEDS: HALOPERIDOL 5 MG TAB PO PRN (09:14)
[2016-07-20] MEDS: QUETIAPINE FUMARATE 25 MG TAB PO PRN ×2 (14:34→21:31)
[2016-07-20 21:19] VITALS: BP 133/82; PULSE 83
[2016-07-20] MEDS: LITHIUM CARBONATE SR 300 MG TAB (LITHOBID) PO SCH (21:24)
[2016-07-21 06:46] VITALS: BP_SYST 120; BP_SYST 127; BP_DIAS 85; BP_DIAS 89; PULSE 73; PULSE 80; TEMP 37
[2016-07-21 08:26] LABS: CHOLESTEROL/HDL RATIO 5.2
[2016-07-21] MEDS: LEVOTHYROXINE 75 MCG TAB PO SCH (08:41)
[2016-07-21] MEDS: GLIMEPIRIDE 2 MG TAB PO SCH (08:42)
[2016-07-21] MEDS: METOPROLOL TARTRATE 50 MG TAB PO SCH ×2 (08:43→21:41)
[2016-07-21] MEDS: ESCITALOPRAM OXALATE 10 MG TAB PO SCH (08:43)
[2016-07-21] MEDS: PREGABALIN 100 MG CAP PO SCH ×2 (08:44→21:41)
[2016-07-21] MEDS: AMLODIPINE BESYLATE 5 MG TAB PO SCH (08:45)
[2016-07-21] MEDS: LISINOPRIL 2.5 MG TAB PO SCH (08:45)
--- NOTE | 2016-07-21 09:53 | Psychiatric Progress Notes ---
Progress Note Date of Service Jul 21, 2016. Interval History Magaly Robert is a 36-year-old woman from [place], [place], admitted to our mental health unit on a voluntary basis with personality disorder and an exacerbation of bipolar disorder including angry outbursts and tics. She is unable to be managed outside of a structured environment. Chief Complaint "I don't know. ". Subjective Patient was seen & assessed interval progress reviewed with Treatment Team. The patient remains focused on medications as the solution, not feeling sure about the current medication changes. She continues to report anxiety and inability to put a behavioral plan in place to mediate it. She says that she would like to go home, but her family says that she needs to be here longer. When asked what she thinks she still needs improvement on, she can't say. When asked to think about activities that she can do at home to prevent herself from falling back into old habits, she can think of none. She denies side effects to meds. No motor or verbal tics today. Denies SI/HI, denies aud/vis hallucinations. Review of Systems Constitutional: + fatigue ENT: No dental problems, No hearing loss, No nasal symptoms, No problem reported, No sore throat, No tinnitus, No trouble swallowing, No unusual epistaxis Respiratory: No cough, No dyspnea at rest, No dyspnea on exertion, No hemoptysis, No problem reported, No shortness of breath, No sputum, No wheezing Cardiovascular: No PND, No chest pain, No claudication, No edema, No orthopnea , No palpitations, No problem reported Abdomen: No GI bleeding, No constipation, No diarrhea, No nausea, No pain, No problem reported, No vomiting Musculoskeletal: No calf pain, No joint pain, No muscle pain, No problem reported, No swelling Neurologic: No balance problems, No memory loss, No numbness/tingling, No paralysis, No problem reported, No vertigo, No weakness Psychiatric: + anxiety, + depression symptoms Integumentary: No bleeding, No color change, No itch, No new/changing skin lesions, No problem reported, No rash Sleep Information Total Hours of Sleep: 7.25 Meal Information Percent of Breakfast Consumed: 100 Percent of Lunch Consumed: 100 Percent of Dinner Consumed: 100 Mental Status Exam During interview pt is: alert and oriented, cooperative Appearance: appropriately dressed, appropriately groomed Eye contact is: fair Motor behavior is: steady gait & station, no abnormal motor movements Speech: normal in rate, rhythm & volume Affect: mood congruent, depressed Mood is: depressed, anxious Thought process: goal directed Thought content: reality based without delusions Suicidal thought are: denied Homicidal thoughts are: denied Hallucinations: denies auditory, denies visual Cognition: memory grossly intact, attention grossly intact, language grossly intact Intelligence estimated to be: average Insight: impaired Judgement: impaired Medication Trials (1) Past Psych Medications Include but are not limited to: 1. Thorazine -- rash. 2. Topamax - increase in anxiety. 3. Depakote -- weight gain. 4. Trazodone -- rash. 5. Risperdal -- swollen tongue and stiffness. 6. Wellbutrin -- ineffective. 7. Haldol --? did receive in the ER last night without side effect. 8. Viibryd -- rash. 9. Prednisone -- rash. 10. Multiple SSRIs including Prozac, Zoloft, Lexapro and Celexa -- ineffective. 11. Effexor -- ? 12. Elavil -- ? 13. Doxepin - DC'd due do hyperammonemia. 14. Abilify -- did not work. 15. Zyprexa -- ? 16. Neurontin -- ? 17. Seroquel XR 300mg worked well caused weight gain (eventually abilify was added to it), metformin 500mg po bid caused GI distress 18. Gaastra - 900mg/hs most common dose, toxic on 900 and 1200 while on HCTZ, was on 450mg in 07/2015, then sometime between 11/2015 and 02/2016 it was returned to 900mg/hs Last Edited By: Edna Joseph on Jul 20, 2016 10:07 Impression Remains depressed and reports that she feels anxious and irritable. Tic behaviors are intermittant, today again without them. Clearly depressed and anxious, anhedonic. Seems to lack the ability to structure her own time or think in anticipation of an event. Meds changed over the weekend with the thinking that lithium therapy corresponds with timeline for tics, so decreased to 450 mg. and haldol DC'd in favor of seroquel. Will see how she does today. Plan (1) Bipolar 1 disorder 07/15-- low suspicion that this is a dyskinesia and so will discontinue Cogentin 1 mg b.i.d. and remain off Latuda. -- will use Haldol 5 mg q. 4 hours p.r.n. for agitation. I have informed the patient that verbal or physical aggression will not be tolerated here in the mental health unit. -- we will observe for the next 24 hours to see the pattern of her verbal and physical tics. -- we will continue all of her other outpatient medications. Gaastra level today 0.8. -- q. 15-minute checks for safety. -- encourage participation in group and individual counseling. -- encouraged the patient to be out of bed during the day and establish good day -night cycles. -- family meeting. -- coordinate with outpatient providers. 07/17 - Start low dose lexapro 5 mg. daily - FAmily meeting held today - give strong encouragement to use behavioral strategies. 07/18 - Continue current meds - Encourage patient to be out of bed, exercise, small goals 07/19/16 - continue current meds, increasing lexapro to total of 10mg today to target ongoing low mood and irritability as there is no evidence of activation and per staff and fiancee possibly less reactive and irritable the last day, watch for mood stability - her lithium likely leads to the nighttime urinary frequency for now given polpharmacy hx and failure will continue but commenting on this for awareness sake - encouraged her to engage in groups and remain out of her room which she is willing to do 07/20/16 - will get lithium level this AM to get a true 5day level, and even if not toxic will lower lithium from 900mg/hs to 450mg/hs to see if tic/ataxia subsides , watching mood as she has clear benefit repeatedly from lithium for irritability and mood stability - will stop prn haldol as it could potentiate lithium and could worsen tics. WIll instead use prn seroquel as less likely to exacerbate tics/ataxia and then if mood is irritable/labile ongoing consider increasing to mood doses of 200mg watching weight (possibly returning to low dose of metformin 500mg/d as 500mg po bid in the past caused weight gain) - continue lamictal 200mg/d at this time as this has not been changed in the last year and this provider is unclear if a cumulative effect could be somehow causal or not - continue 10mg lexapro although rare movement disorders are described this is unlikely culprit as the head bobbing and vocal tic preceded this admission. SHe seems mildly improved as she is more able to tolerate her family and when irritable she is less explosive - last fasting labs on file 08/11/15 WNL will order for 07/21/16 - EKG given we are adding prn seroquel to lithium and lexapro (stop hydroxyzine to reduce any unnecessary QTc prolonging medications) (2) Excessive anger Bipolar disorder and personality disorder both contributing. Can use Haldol as above. Encourage group attendance and participation to work on healthy ways to cope and safety planning. She would benefit from DBT based program but this is not readily available in the [facility] Frank evangelista benefit from family portion to reinforce effective communication and stop reinforcing escalating communication. (3) Tic Patient presents with vocal and motor tic. She states she's had these before, but is a poor historian for previous episodes. There does appear to be some degree of voluntary control of the tics, and first-line treatment is behavioral therapy (CBT, habit reversal training, or exposure and response prevention) and treatment of psychiatric comorbidities. If these are ineffective and tics continue, could consider a trial of medication to target them, such as clonidine or guanfacine. 07/18 - limited insight into condition. Will need strong, consistent encouragement. 07/20/16 - differential is tic vs. cerebellar ataxia of head bobbing - see plan to lower lithium and stop haldol, using seroquel prn for agitation , and differential listed as above. 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 Patient to be reminded of appropriate behavior and boundaries while on the unit. Again she would benefit from DBT based program which is not readily available in the [facility]. (5) Hypertension continue home dose of amlodipine. Monitor. (6) Hypothyroid Continue home dose of Synthroid 75 mcg daily. TSH within normal limits. (7) Fibromyalgia -- will make tramadol p.r.n. rather than scheduled due to her reports of somnolence during the day. (8) Diabetes -- continue Amaryl with blood sugars b.i.d. Discharge / Aftercare Planning Primary Care Physician: Name: Dr. Fito Fowler Number: [phone] Appointment Notes: Call as needed Psychiatrist: Name: Dr. Schroeder Date of Appointment: August 11, 2016 Time of Appointment: 1:50pm Therapist: Name: Recommend you get back into therapy at [facility] Psych Clinic Appointment Notes: call to schedule Drafting Instructor: Name: Jennifer Li Partial or Psych Rehab: Name: [facility] [place] Psych Rehab Appointment Notes: Return as scheduled (3 days per week) Visit Code E&M Code: 29719 Risk Factors Assessment : Yes /single/: No Higher / Fall in social status: No Access to guns: No Health problems: Yes Mental Health Diagnoses: Yes Substance use disorders: No Previous attempt: Yes Family history of suicide: Yes Previous psychiatric stay: Yes Smoker: No Protective Factors Assessment : Yes Responsible for young children: Yes Employed: No Supportive family: Yes Data Vital Signs Last 24 Hrs: Date Time Temp Pulse Resp B/P Pulse Ox O2 Delivery O2 Flow Rate FiO2 07/21/16 06:46 37.0 73 18 127/85 80 120/89 07/20/16 21:19 83 18 133/82 Meds Administered Last 24 Hrs: Meds Administered (Past 24Hrs) Medications (Trade) Dose Ordered Sig/Roge Route Start Time Stop Time Status Last Admin Dose Admin Escitalopram Oxalate (Lexapro Tab) 10 mg QAM PO 07/20/16 09:00 08/19/16 08:59 07/21/16 08:43 10 MG Escitalopram Oxalate (Lexapro Tab) 5 mg NOW ONCE PO 07/19/16 10:45 07/19/16 10:46 DC 07/19/16 11:04 5 MG Gaastra Carbonate (Lithobid Tab) 450 mg HS PO 07/20/16 22:00 08/19/16 21:59 07/20/16 21:24 450 MG Quetiapine Fumarate (seroQUEL TAB) 25 mg Q6H PRN PO 07/20/16 10:30 08/19/16 10:29 07/20/16 21:31 25 MG Lab Results Last 24 Hrs: Last 24 Hours Test 07/20/16 10:22 07/20/16 17:27 07/21/16 07:10 07/21/16 07:32 Gaastra Level 0.8 mMOL/L Bedside Glucose 88 mg/dl 95 mg/dl Fasting Glucose 98 mg/dl Triglycerides Level 174 mg/dl Cholesterol Level 173 mg/dl HDL Cholesterol 33 mg/dl LDL Cholesterol, Calculated 105 mg/dl VLDL Cholesterol, Calculated 35 mg/dl Cholesterol/HDL Ratio 5.2
[2016-07-21] MEDS: QUETIAPINE FUMARATE 25 MG TAB PO PRN (10:59)
[2016-07-21] MEDS ORDERED: PANTOprazole SOD 40 MG TAB PO ONE (11:15)
[2016-07-21] MEDS ORDERED: NURSING VERBAL MED ORDER ONE (18:15)
[2016-07-21] MEDS ORDERED: HALOPERIDOL 5 MG TAB PO PRN (19:00)
[2016-07-21] MEDS: LITHIUM CARBONATE SR 300 MG TAB (LITHOBID) PO SCH (21:39)
[2016-07-21] MEDS: TRAMADOL HCL 50 MG TAB PO PRN (21:45)
[2016-07-21 21:49] VITALS: BP 144/93; PULSE 76
[2016-07-22 06:50] VITALS: BP_SYST 121; BP_SYST 134; BP_DIAS 80; BP_DIAS 81; PULSE 75; PULSE 81; TEMP 37
[2016-07-22] MEDS: LEVOTHYROXINE 75 MCG TAB PO SCH (07:28)
[2016-07-22] MEDS: ESCITALOPRAM OXALATE 10 MG TAB PO SCH (08:29)
[2016-07-22] MEDS: GLIMEPIRIDE 2 MG TAB PO SCH (08:29)
[2016-07-22] MEDS: METOPROLOL TARTRATE 50 MG TAB PO SCH (08:29)
[2016-07-22] MEDS: LISINOPRIL 2.5 MG TAB PO SCH (08:30)
[2016-07-22] MEDS: AMLODIPINE BESYLATE 5 MG TAB PO SCH (08:30)
[2016-07-22] MEDS: PREGABALIN 100 MG CAP PO SCH (08:31)
[2016-07-22] MEDS ORDERED: PANTOprazole SOD 40 MG TAB PO SCH (09:00)
[2016-07-22] MEDS ORDERED: TRAM-10 PO (09:09)
[2016-07-22] MEDS ORDERED: LXP10 PO (09:09)
[2016-07-22] MEDS ORDERED: LTHSR450 PO (09:09)
[2016-07-22] MEDS ORDERED: HLD5 PO (09:09)
[2016-07-22] MEDS: QUETIAPINE FUMARATE 25 MG TAB PO PRN (09:11)
--- NOTE | 2016-07-22 09:18 | Discharge Instructions ---
Discharge Information Report Includes Report will include the: Discharge Instructions & Summary Admission Admission Date / Time: Jul 14, 2016 at 22:05 Reason for Admission: Bipolar Disorder Discharge Discharge Diagnosis / Problem: Bipolar disorder, depressed. Condition at Discharge: Fair Discharge Goals Goal(s): Decrease discomfort, Improve disease control, Prevent Disease Progression Activity Recommendations Activity Limitations: resume your previous activity . Instructions / Follow-Up Instructions / Follow-Up . SPECIAL CARE INSTRUCTIONS: 1. Follow through with your scheduled aftercare appointments. If unable to keep an appointment, please call to reschedule. 2. Take your medication only as prescribed. Medication should not be changed or stopped without the approval of your doctor. In the event of worsening symptoms or concerns about side effects, contact your doctor immediately. 3. Utilize new healthy coping skills, anger management skills, and stress management skills learned during your hospitalization. Journal feelings and process them with a support person. Identify stressors or situations that may result in relapse, deterioration or inappropriate behaviors and develop a plan to deal with those issues. 4. If your coping skills are ineffective and you are in crisis, contact your outpatient providers for direction. If unable to reach your providers, please call the CAN HELP LINE AT or go to the closest Emergency Room. 5. Avoid alcohol and un-prescribed drugs. 6. You have been provided with the Mental Health Advance Directives Pamphlet for your review. AFTERCARE APPOINTMENTS: * Please call your insurance company prior to your scheduled appointment to confirm your aftercare providers are covered. Take your insurance information to your appointments. . Discharge / Aftercare Planning Primary Care Physician: Name: Dr. Payton Appointment Notes: Call as needed Psychiatrist: Name: Dr. Schroeder Date of Appointment: August 11, 2016 Time of Appointment: 1:50pm Therapist: Name Of Therapist: Recommend you get back into therapy at [facility] Appointment Comments: call to schedule Supervisor Coremaker: Name: Jennifer Li Partial or Psych Rehab: Name: [facility] Psych Rehab Appointment Comments: Return as scheduled (3 days per week) . Follow-Up Care Plan for Follow-Up Care: the patient will return to Dr. Schroeder, and has now agreed to add a therapist at the psych clinic as well. Current Hospital Diet Patient's current hospital diet: Diabetes Type 2 Diet Discharge Diet Recommended Diet: Diabetes Type 2 Diet Procedures Procedures Performed: No Pending Studies Pending Studies at Discharge: No Medical Emergencies . Who to Call and When: Medical Emergencies: For questions or emergencies related to your hospital stay, please contact the Inpatient Behavioral Health Unit at [phone]. A pulp bleacher is on-call 03/11 for the Behavioral Health Unit for emergencies At any time you feel your situation is an emergency, you may also call 911 immediately. . Non-Emergent Contact Non-Emergency issues call your: Psychiatrist, Therapist Advance Directives Existing Advance Directive: No Do You Have an Existing Mental: No Existing Living Will: No Existing Power of Slps: No Advance Directives Info Given: To Pt/S.O. Advance Directives Reason: Declines as Mental Health Visit. Discharge Summary Admission HPI Per the Admitting provider: Please see attached H&P Hospital Course (1) Bipolar 1 disorder 07/15-- low suspicion that this is a dyskinesia and so will discontinue Cogentin 1 mg b.i.d. and remain off Latuda. -- will use Haldol 5 mg q. 4 hours p.r.n. for agitation. I have informed the patient that verbal or physical aggression will not be tolerated here in the mental health unit. -- we will observe for the next 24 hours to see the pattern of her verbal and physical tics. -- we will continue all of her other outpatient medications. Ona level today 0.8. -- q. 15-minute checks for safety. -- encourage participation in group and individual counseling. -- encouraged the patient to be out of bed during the day and establish good day -night cycles. -- family meeting. -- coordinate with outpatient providers. 07/17 - Start low dose lexapro 5 mg. daily - FAmily meeting held today - give strong encouragement to use behavioral strategies. 07/18 - Continue current meds - Encourage patient to be out of bed, exercise, small goals 07/19/16 - continue current meds, increasing lexapro to total of 10mg today to target ongoing low mood and irritability as there is no evidence of activation and per staff and fiancee possibly less reactive and irritable the last day, watch for mood stability - her lithium likely leads to the nighttime urinary frequency for now given polpharmacy hx and failure will continue but commenting on this for awareness sake - encouraged her to engage in groups and remain out of her room which she is willing to do 07/20/16 - will get lithium level this AM to get a true 5day level, and even if not toxic will lower lithium from 900mg/hs to 450mg/hs to see if tic/ataxia subsides , watching mood as she has clear benefit repeatedly from lithium for irritability and mood stability - will stop prn haldol as it could potentiate lithium and could worsen tics. WIll instead use prn seroquel as less likely to exacerbate tics/ataxia and then if mood is irritable/labile ongoing consider increasing to mood doses of 200mg watching weight (possibly returning to low dose of metformin 500mg/d as 500mg po bid in the past caused weight gain) - continue lamictal 200mg/d at this time as this has not been changed in the last year and this provider is unclear if a cumulative effect could be somehow causal or not - continue 10mg lexapro although rare movement disorders are described this is unlikely culprit as the head bobbing and vocal tic preceded this admission. SHe seems mildly improved as she is more able to tolerate her family and when irritable she is less explosive - last fasting labs on file 08/11/15 WNL will order for 07/21/16 - EKG given we are adding prn seroquel to lithium and lexapro (stop hydroxyzine to reduce any unnecessary QTc prolonging medications) (2) Excessive anger Bipolar disorder and personality disorder both contributing. Can use Haldol as above. Encourage group attendance and participation to work on healthy ways to cope and safety planning. She would benefit from DBT based program but this is not readily available in the [facility] Frank evangelista benefit from family portion to reinforce effective communication and stop reinforcing escalating communication. (3) Tic Patient presents with vocal and motor tic. She states she's had these before, but is a poor historian for previous episodes. There does appear to be some degree of voluntary control of the tics, and first-line treatment is behavioral therapy (CBT, habit reversal training, or exposure and response prevention) and treatment of psychiatric comorbidities. If these are ineffective and tics continue, could consider a trial of medication to target them, such as clonidine or guanfacine. 07/18 - limited insight into condition. Will need strong, consistent encouragement. 07/20/16 - differential is tic vs. cerebellar ataxia of head bobbing - see plan to lower lithium and stop haldol, using seroquel prn for agitation , and differential listed as above. 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 Patient to be reminded of appropriate behavior and boundaries while on the unit. Again she would benefit from DBT based program which is not readily available in the [facility]. (5) Hypertension continue home dose of amlodipine. Monitor. (6) Hypothyroid Continue home dose of Synthroid 75 mcg daily. TSH within normal limits. (7) Fibromyalgia -- will make tramadol p.r.n. rather than scheduled due to her reports of somnolence during the day. (8) Diabetes -- continue Amaryl with blood sugars b.i.d. Risk Factors Assessment : Yes /single/: No Higher / Fall in social status: No Access to guns: No Health problems: Yes Mental Health Diagnoses: Yes Substance use disorders: No Previous attempt: Yes Family history of suicide: Yes Previous psychiatric stay: Yes Smoker: No Protective Factors Assessment : Yes Responsible for young children: Yes Employed: No Supportive family: Yes Day of Discharge Assessment COURSE OF HOSPITALIZATION: During the patient's 8 day stay, we adjusted many of her medications. Ona was reduced from 900 mg to 450 mg at at bedtime due to concerns that the tic behaviors coincided with the start of lithium. We also added Haldol 2.5 mg when necessary for times of agitation which she used liberally. Attempts were made to use Seroquel instead of Haldol, but the patient did not like this and so we returned her to the use of Haldol. She was also started on Lexapro 10 mg daily due to her self reports of severe depression which were confirmed during a family meeting with her . During that family meeting they talked about the fact that they have very little time together as her 15-year-old son wants to do everything with them. He also talked about the amount of time she spends in bed, not doing chores or participating in activities around the house when she is depressed. Part of her presentation to the hospital had been concerned for motor behaviors that consisted of head bobbing movements and verbalizations that presented as muttering's quietly while she spoke. These were significantly diminished during her stay and would only periodically appear, mostly in the evening. Compared to reports prior to admission, these appear to be in significant decline. They did seem to appear more frequently when she was Although consistent pattern with that. The patient patient services with Dr. Dacosta and attend psych rehabilitation 3 times per week. It had been recommended that she participate in therapy as well which she had refused to do due to the long commute by [place] for her appointments. I spoke with Dr. Schroedre at the beginning and end of her hospitalization. Dr. Thacker feels certain that Magaly did better when she was inconsistent therapy at the psych clinic and is again recommending that she participate in that. Without the patient's willingness to accept therapy, Dr. Thacker is not sure that she could continue to see her. This was discussed with the patient to ultimately agreed to return to therapy. It was suggested she reduce her psych rehabilitation days to 2 so that she still has only 3 days where she is on the van, however she did not want to do that. It was also suggested that perhaps she get a therapy appointment late in the day so that when she's done she could walk down to her 's office and drive home with him thus allowing them some time in the car together on the drive home. She was agreeable to this, not wanting to jeopardize her relationship with her outpatient psychiatrist whom she feels connected to. Today there are no motor tics nor are there any mutterings were verbalizations. Her affect is restricted but able to smile. She makes fair eye contact. Gait and station are within normal limits. Speech is of normal rate volume and tone. Thoughts are organized and goal directed, and without evidence of thought disorder. Recent and remote memory are intact per conversation. Intelligence is estimated to be average. Insight and judgment are improved over admission. She denies suicidal or homicidal thinking. Laboratory Test 07/14/16 18:40 07/14/16 20:16 07/15/16 09:48 07/20/16 10:22 Urine Color YELLOW Urine Appearance CLEAR Urine pH 6.5 Urine Specific [place] 1.019 Urine Protein NEG Urine Glucose (UA) NEG Urine Ketones NEG Urine Occult Blood NEG Urine Nitrite NEG Urine Bilirubin NEG Urine Urobilinogen NEG Urine Leukocyte Esterase NEG Urine WBC (Auto) 1-5 Urine RBC (Auto) 0-4 Urine Hyaline Casts (Auto) 1-5 Urine Epithelial Cells (Auto) >30 Urine Bacteria (Auto) 1+ Urine Test NEG Urine Opiates Screen NEG Urine Methadone, Qualitative NEG Urine Barbiturates NEG Urine Phencyclidine (PCP) Level NEG Ur Amphetamine/Methamphetamine NEG MDMA (Ecstasy) Screen NEG Urine Benzodiazepines Screen NEG Urine Cocaine Metabolite NEG Urine Marijuana (THC) NEG White Blood Count 16.16 Red Blood Count 5.06 Hemoglobin 15.1 Hematocrit 43.3 Mean Corpuscular Volume 85.6 Mean Corpuscular Hemoglobin 29.8 Mean Corpuscular Hemoglobin Concent 34.9 Platelet Count 300 Mean Platelet Volume 10.3 Neutrophils (%) (Auto) 71.8 Lymphocytes (%) (Auto) 20.7 Monocytes (%) (Auto) 5.2 Eosinophils (%) (Auto) 1.7 Basophils (%) (Auto) 0.2 Neutrophils # (Auto) 11.62 Lymphocytes # (Auto) 3.34 Monocytes # (Auto) 0.84 Eosinophils # (Auto) 0.27 Basophils # (Auto) 0.03 RDW Standard Deviation 42.5 RDW Coefficient of Variation 13.6 Immature Granulocyte % (Auto) 0.4 Immature Granulocyte # (Auto) 0.06 Sodium Level 141 Potassium Level 3.4 Chloride Level 103 Carbon Dioxide Level 26 Anion Gap 12.0 Blood Urea Nitrogen 8 Creatinine 0.90 Est Creatinine Clear Calc Drug Dose 95.7 Estimated GFR () 96.0 Estimated GFR (Non- 82.8 BUN/Creatinine Ratio 9.1 Random Glucose 150 Calcium Level 8.3 Total Bilirubin 0.4 Aspartate Amino Transferase (AST) 18 Alanine Aminotransferase (ALT) 32 Alkaline Phosphatase 114 Total Protein 7.1 Albumin 3.7 Globulin 3.4 Albumin/Globulin Ratio 1.1 Thyroid Stimulating Hormone (TSH) 0.362 Salicylates Level < 1.7 Acetaminophen Level < 2 Ethyl Alcohol mg/dL < 3.0 Ona Level 0.8 0.8 Test 07/21/16 07:32 07/21/16 16:03 07/22/16 08:01 Fasting Glucose 98 Triglycerides Level 174 Cholesterol Level 173 HDL Cholesterol 33 LDL Cholesterol, Calculated 105 VLDL Cholesterol, Calculated 35 Cholesterol/HDL Ratio 5.2 POC Glucose 128 111 Total Time Total Time Spent (min): Greater than 30 minutes Total Time Included: examination of the patient, discharge planning, medication reconciliation, communication with other providers Tobacco Cessation at Discharge Smoking Status: Former Smoker FDA approved Prescription: non-smoker
[2016-07-22] MEDS: TRAMADOL HCL 50 MG TAB PO PRN (12:06)
[2017-03-07] MEDS ORDERED: LEVO50TA6 PO (12:19)
[2017-03-07] MEDS ORDERED: DPKSR/500 PO (12:19)
[2017-03-07] MEDS ORDERED: HLD5X PO (12:19)
[2017-03-07] MEDS ORDERED: GUAN2TAB PO (12:19)
[2017-03-07] MEDS ORDERED: PRLSR20 PO (14:28)
[2017-03-07] MEDS ORDERED: GLIM1TAB2 PO (15:13)
[2017-03-07] MEDS ORDERED: RST/30 PO (19:16)
[2017-03-13] MEDS ORDERED: PREG150C PO (10:27)
[2017-03-13] MEDS ORDERED: RMR15 PO (10:27)
[2017-03-13] MEDS ORDERED: CTP1 PO (10:27)
[2017-03-13] MEDS ORDERED: CALCTAB7 PO (10:27)
== END 2016-07-22 15:50 | disposition home or self-care (01) | DRG 885 ==
LOC: ENRESERVTM → ENRESERVDT → C.EDB 18:03 → C.MHU 22:05
PROVIDERS: ADMIT Psychiatry & Neurology Child & Adolescent Psychiatry; ATTEND Psychiatry & Neurology Psychiatry
DX: F31.9 Bipolar disorder, unspecified (principal); Z68.41 Body mass index [BMI] 40.0-44.9, adult; R45.4 Irritability and anger; F60.9 Personality disorder, unspecified; I10 Essential (primary) hypertension; E03.9 Hypothyroidism, unspecified; E11.9 Type 2 diabetes mellitus without complications; F95.1 Chronic motor or vocal tic disorder; F41.9 Anxiety disorder, unspecified; E66.01 Morbid (severe) obesity due to excess calories; K21.9 Gastro-esophageal reflux disease without esophagitis; M79.7 Fibromyalgia; Z87.891 Personal history of nicotine dependence; Z79.899 Other long term (current) drug therapy; Z79.891 Long term (current) use of opiate analgesic; Z51.81 Encounter for therapeutic drug level monitoring

== ENCOUNTER → 2016-09-09 | Outpatient (CLI) | payer OTHER ==
[~2016-09-09] MED LIST changes: -ATV/1 PO; +CALCTAB7 PO; +CTP1 PO; +DPKSR/500 PO; +ESCI1TAB10 PO; +GLIM1TAB2 PO; +GUAN2TAB PO; +HLD5 PO; +HLD5X PO; -HYDR25TA4 PO; +LEVO50TA6 PO; -LITH300T2 PO; +LTHSR450 PO; -LURA40TA PO; +LXP10 PO; +METO100T14 PO; +PREG150C PO; +PRLSR20 PO; +RMR15 PO; +RST/30 PO; +ULT50 PO; +VALB40CA PO
[2016-09-09 18:33] LABS: HEMATOCRIT 43.6 % (37-47); MEAN CELL VOLUME 88.4 fL (80-100); MEAN CORPUSCULAR HEMOGLOBIN 28.6 pg (25-34); MEAN CORPUSCULAR HGB CONC 32.3 g/dl (32-36); MEAN PLATELET VOLUME 10.3 fL (7.4-10.4); PLATELET COUNT 269 K/uL (130-400); RED BLOOD COUNT 4.93 M/uL (4.2-5.4); WHITE BLOOD COUNT 11.03 K/uL (4.8-10.8)
[2016-09-09 18:56] LABS: ALKALINE PHOSPHATASE 103 U/L (45-117); ALT/SGPT 19 U/L (12-78); AST/SGOT 13 U/L (15-37)
== END | disposition home or self-care (01) ==
LOC: C.LAB 18:10
PROVIDERS: ATTEND Psychiatry & Neurology Psychiatry
DX: Z79.899 Other long term (current) drug therapy (principal)

== ENCOUNTER → 2016-10-21 | Outpatient (CLI) | payer OTHER ==
[~2016-10-21] MED LIST changes: -BENZ-88 PO; -CALCTAB7 PO; -CTP1 PO; -DPKSR/500 PO; -ESCI1TAB10 PO; -GUAN2TAB PO; -HLD5X PO; -LEVO50TA6 PO; -METO100T14 PO; -PREG150C PO; -RMR15 PO; -RST/30 PO; -ULT50 PO; -VALB40CA PO
== END | disposition home or self-care (01) ==
LOC: C.LAB 07:30
PROVIDERS: ATTEND Psychiatry & Neurology Psychiatry
DX: Z79.899 Other long term (current) drug therapy (principal)

== ENCOUNTER 2017-02-27 11:06 | Emergency (ER) | payer OTHER ==
[~2017-02-27] VITALS: Ht 157.5 cm; Wt 94.6 kg
[2017-02-27 11:09] VITALS: TEMP 36.8; Ht 157.5 cm; Wt 94.6 kg
--- NOTE | 2017-02-27 12:13 | EMERGENCY ROOM VISIT NOTE ---
History Report prepared by Maged: Isaiah Alvarez Under the Supervision of: Dr. Allison Couch D.O. First contact with patient: 12:01 Chief Complaint: NEURO SYMPTOMS Stated Complaint: FULL BODY TREMORS, SLURRED SPEECH, EYES DILATED Nursing Triage Summary: Pt visitor states patient was at psych rehab today and they called her fiance, who was hunting, so his mother (visitor with patient) brought pt to ED. Psych rehab gave pt's fiance's mother a note saying pt had "bull body tremors, slurred speech, eyes dilated" and that the pt "reports feeling hot, not able to eat." They called Dr Schroeder who suggested going to ER, does not believe it's due to recent med changes. Pt feels anxious and tired. Pt visitor states speed is slower. No tremors noted in triage. Pt reports feeling like she is not hungry. Pt denies SI/HI. Denies self injury. History of Present Illness The patient is a 37 year old female who presents to the Emergency Room with complaints of persistent neuro symptoms that started recently after starting a new medication for her ticks. She says that her ticks consist of neck spasms. She states that she has been having tremors, slurred speech, and feelings of getting hot, ever since she started the new medication. The patient notes that nothing makes the tremors better or worse. She says that nothing else could have contributed to the neuro symptoms, as she has not started any other new medications. The patient says that she has never had a reaction like this before. She denies any pain, numbness, tingling, abdominal pain, recent cough, cold symptoms, urinary symptoms, or bowel movement problems. She notes that she did take a Laxative yesterday. The patient says that she took Klonopin this morning for anxiety. She says that she has been recently anxious due to her fiance going out hunting. The patient's [id number] states that the patient goes to psych rehab. Source of History: patient, family Onset: Recently after starting new tick medication Position: other (global - neuro symptoms) Timing: other (persistent) Associated Symptoms: No cough, No abdominal pain, No urinary symptoms, No numbness (or tingling) Note: Associated symptoms: Tremors, slurred speech, gets hot. Recent worsened anxiety. Denies pain, bowel movement problems. Review of Systems See HPI for pertinent positives & negatives. A total of 10 systems reviewed and were otherwise negative. Past Medical & Surgical Medical Problems: (1) Altered mental state (2) ANXIETY STATE NOS (3) BIPOL I, REC EPIS OR CURRENT MIXED, SEVERE, SPEC W PSYCH BEH (4) Bipolar 1 disorder (5) Cholecystectomy (6) Diabetes (7) Emphysema (8) Fibromyalgia (9) HTN (hypertension) (10) Hypothyroid (11) Hypoxia (12) Past Psych Medications (13) Personality disorder (14) Pneumonia (15) Tic Surgical Problems: (1) H/O section Family History Alcoholism Cancer Heart disease Hypertension Kidney disease or stones Social History Smoking Status: Never Smoker Alcohol Use: none Drug Use: none Marital Status: in relationship Housing Status: lives with family Occupation Status: disabled Current/Historical Medications Scheduled Amlodipine Besylate (Norvasc), 10 MG PO DAILY Benztropine Mesylate (Benztropine Mesylate), 1.5 TAB PO DAILY Divalproex Sodium (Depakote Etended-Release), 2 TAB PO HS Escitalopram Oxalate (Lexapro), 1 TAB PO DAILY Glimepiride (Glimepiride), 1 TAB PO QAM Guanfacine Hcl (Tenex), 2 TAB PO HS Haloperidol (Haloperidol), 1 TAB PO HS Levothyroxine Sodium (Levothyroxine Sodium), 1 TAB PO DAILY Lisinopril (Lisinopril), 2.5 MG PO DAILY Metoprolol Tartrate (Lopressor) (Lopressor), 1 TAB PO BID Omeprazole (Prilosec), 20 MG PO DAILY Pregabalin (Lyrica), 200 MG PO BID Tramadol HCl (Tramadol HCl), 0.5 TAB PO BID Valbenazine Tosylate (Ingrezza), 1 CAP PO UD Allergies Coded Allergies: Chlorpromazine (Verified Allergy, Intermediate, RASH, 02/27/17) Vilazodone (Verified Allergy, Mild, VIIBRYD- RASH, 02/27/17) Naproxen (Verified Allergy, Unknown, Rash, 02/27/17) Prednisone (Verified Allergy, Unknown, BAD RASH, 02/27/17) Risperidone (Verified Allergy, Unknown, swollen tongue and stiff legs, ) Physical Exam Vital Signs Date Time Temp Pulse Resp B/P (MAP) Pulse Ox O2 Delivery O2 Flow Rate FiO2 02/27/17 15:30 87 18 130/9 96 02/27/17 15:20 87 18 130/92 96 Room Air 02/27/17 13:21 82 18 110/78 95 Room Air 02/27/17 11:09 36.8 83 16 121/83 96 Room Air Physical Exam GENERAL: alert, anxious appearing, well nourished, no distress, non-toxic EYE EXAM: normal conjunctiva, PERRL and EOM's grossly intact OROPHARYNX: no exudate, no erythema, lips, buccal mucosa, and tongue normal and mucous membranes are moist NECK: supple, no nuchal rigidity, no adenopathy, non-tender LUNGS: Clear to auscultation. Normal chest wall mechanics HEART: no murmurs, S1 normal and S2 normal ABDOMEN: abdomen soft, non-tender, normo-active bowel sounds, no masses, no rebound or guarding. BACK: Back is symmetrical on inspection and there is no deformity, no midline tenderness, no CVA tenderness. SKIN: no rashes and no bruising UPPER EXTREMITIES: upper extremities are grossly normal. LOWER EXTREMITIES: No pitting edema. NEURO EXAM: Normal sensorium, cranial nerves II-XII grossly intact, normal speech, no gross weakness of arms, no gross weakness of legs. No drift. Finger to nose intact. Gross sensation intact. Intermittent tremors, mostly in upper extremities. No slurred speech. PSYCH: Flat affect. Medical Decision & Procedures Laboratory Results 02/27/17 11:40 Red Blood Count 5.23, Mean Corpuscular Volume 89.1, Mean Corpuscular Hemoglobin 31.2, Mean Corpuscular Hemoglobin Concent 35.0, Mean Platelet Volume 11.5, Neutrophils (%) (Auto) 71.6, Lymphocytes (%) (Auto) 17.6, Monocytes (%) (Auto) 9.9, Eosinophils (%) (Auto) 0.2, Basophils (%) (Auto) 0.3, Neutrophils # (Auto) 8.37, Lymphocytes # (Auto) 2.06, Monocytes # (Auto) 1.16, Eosinophils # (Auto) 0.02, Basophils # (Auto) 0.03 02/27/17 13:00 Test 02/27/17 11:40 02/27/17 13:00 White Blood Count 11.69 K/uL (4.8-10.8) Red Blood Count 5.23 M/uL (4.2-5.4) Hemoglobin 16.3 g/dL (12.0-16.0) Hematocrit 46.6 % (37-47) Mean Corpuscular Volume 89.1 fL (80-100) Mean Corpuscular Hemoglobin 31.2 pg (25-34) Mean Corpuscular Hemoglobin Concent 35.0 g/dl (32-36) Platelet Count 276 K/uL (130-400) Mean Platelet Volume 11.5 fL (7.4-10.4) Neutrophils (%) (Auto) 71.6 % Lymphocytes (%) (Auto) 17.6 % Monocytes (%) (Auto) 9.9 % Eosinophils (%) (Auto) 0.2 % Basophils (%) (Auto) 0.3 % Neutrophils # (Auto) 8.37 K/uL (1.4-6.5) Lymphocytes # (Auto) 2.06 K/uL (1.2-3.4) Monocytes # (Auto) 1.16 K/uL (0.11-0.59) Eosinophils # (Auto) 0.02 K/uL (0-0.5) Basophils # (Auto) 0.03 K/uL (0-0.2) RDW Standard Deviation 45.0 fL (36.4-46.3) RDW Coefficient of Variation 13.9 % (11.5-14.5) Immature Granulocyte % (Auto) 0.4 % Immature Granulocyte # (Auto) 0.05 K/uL (0.00-0.02) Anion Gap 9.0 mmol/L (3-11) Est Creatinine Clear Calc Drug Dose 108.3 ml/min Estimated GFR () 115.1 Estimated GFR (Non- 99.3 BUN/Creatinine Ratio 16.8 (10-20) Calcium Level 8.8 mg/dl (8.5-10.1) Magnesium Level 2.4 mg/dl (1.8-2.4) Total Bilirubin 0.4 mg/dl (0.2-1) Aspartate Amino Transf (AST/SGOT) 44 U/L (15-37) Alanine Aminotransferase (ALT/SGPT) 62 U/L (12-78) Alkaline Phosphatase 119 U/L (45-117) Total Protein 7.9 gm/dl (6.4-8.2) Albumin 3.8 gm/dl (3.4-5.0) Globulin 4.1 gm/dl (2.5-4.0) Albumin/Globulin Ratio 0.9 (0.9-2) Human Chorionic Gonadotropin, Qual NEG (NEG) Valproic Acid (Depakene) Level 79 mcg/ml (50-100) [place] Level < 0.2 mMOL/L (0.6-1.2) Laboratory results per my review. Medications Administered Medications (Trade) Dose Ordered Sig/Roge Route Start Time Stop Time Status Last Admin Dose Admin Lorazepam (Ativan Tab) 0.5 mg NOW STAT SL 02/27/17 12:54 02/27/17 12:55 DC 02/27/17 13:19 0.5 MG Lorazepam (Ativan Tab) 0.5 mg NOW STAT SL 02/27/17 14:41 02/27/17 14:42 DC 02/27/17 14:49 0.5 MG ED Course 1225: The patient was evaluated in room C10. A complete history and physical exam was performed. 1254: Ordered Ativan Tab 0.5 mg SL. 1438: I reevaluated the patient and she is resting. Her shaking had stopped until I woke her up. She wants another Ativan. 1505: Upon reevaluation, the patient is feeling okay. She says that she is not taking [place] anymore. I discussed the findings and the treatment plan with the patient. She verbalizes agreement and understanding. She was discharged home. Medical Decision Differential diagnosis: medication reaction, seizure, electrolyte abnormality, essential tremor, anxiety, Parkinson's. Patient well-appearing here with intermittent tremors that seem to be voluntary in origin. I do not suspect true seizure activity. Patient with a history of tremors secondary to anxiety. Patient with a nonfocal and normal neurologic exam otherwise at bedside, I do not suspect CVA. History and presentation otherwise consists consistent with dysrhythmia, occult infection, electrolyte abnormality. Patient improved here with benzodiazepines, states felt markedly improved. Patient able ambulate with a steady gait and was tolerating by mouth at time of discharge. Medication Reconcilliation Current Medication List: was personally reviewed by me Blood Pressure Screening Patient's blood pressure: Normal blood pressure Impression Primary Impression: Anxiety Additional Impression: Tremor Scribe Attestation The scribe's documentation has been prepared under my direction and personally reviewed by me in its entirety. I confirm that the note above accurately reflects all work, treatment, procedures, and medical decision making performed by me. Departure Information Dispostion Home / Self-Care Referrals Cassi Payton M.D. (PCP) Patient Instructions My [facility] Additional Instructions Please take your regular medications as prescribed. Please follow up with your psychiatrist and therapist. If you have any worsening anxiety, develop said thoughts or worsening depression, have thoughts of wanting to hurt yourself or anyone else, develop headaches, vomiting, worsening tremors, vision changes, dizziness, or you have any other new concerns, please return the emergency room. Problem Qualifiers
[2017-02-27] MEDS ORDERED: LEVO50TA6 PO (12:19)
[2017-02-27] MEDS ORDERED: DPKSR/500 PO (12:19)
[2017-02-27] MEDS ORDERED: BENZ-88 PO (12:19)
[2017-02-27] MEDS ORDERED: HLD5X PO (12:19)
[2017-02-27] MEDS ORDERED: METO100T14 PO (12:19)
[2017-02-27] MEDS ORDERED: VALB40CA PO (12:19)
[2017-02-27] MEDS ORDERED: ULT50 PO (12:19)
[2017-02-27] MEDS ORDERED: ESCI1TAB10 PO (12:19)
[2017-02-27] MEDS ORDERED: GUAN2TAB PO (12:19)
[2017-02-27 12:30] LABS: BASO % 0.3 %; BASO ABS # 0.03 K/uL (0-0.2); COMPLETE YES; EOS % 0.2 %; HEMATOCRIT 46.6 % (37-47); IG% 0.4 %; LYMPH % 17.6 %; LYMPH ABS # 2.06 K/uL (1.2-3.4); MEAN CELL VOLUME 89.1 fL (80-100); MEAN CORPUSCULAR HEMOGLOBIN 31.2 pg (25-34); MEAN PLATELET VOLUME 11.5 fL (7.4-10.4); MONO % 9.9 %; NEUT % 71.6 %; PLATELET COUNT 276 K/uL (130-400); RED BLOOD COUNT 5.23 M/uL (4.2-5.4); WHITE BLOOD COUNT 11.69 K/uL (4.8-10.8)
[2017-02-27] MEDS ORDERED: LORAZEPAM 0.5 MG TAB SL STA ×2 (12:54→14:41)
[2017-02-27 13:52] LABS: BUN/CREATININE RATIO 16.8 (10-20); CALCIUM 8.8 mg/dl (8.5-10.1); CREATININE 0.77 mg/dl (0.60-1.20); MAGNESIUM 2.4 mg/dl (1.8-2.4); POTASSIUM 3.6 mmol/L (3.5-5.1)
[2017-02-27 13:55] LABS: ALB/GLOB RATIO 0.9 (0.9-2)
[2017-02-27 14:03] LABS: PREG INTERNAL NEGATIVE QC NEG CLEAR BACKGROUND; PREG INTERNAL POSITIVE QC POS CONTROL LINE
[2017-02-27 14:28] LABS: LITHIUM < 0.2 mMOL/L (0.6-1.2)
[2017-02-27 15:30] VITALS: BP 130/9; PULSE 87; O2SAT 96
== END 2017-02-27 15:31 | disposition home or self-care (01) ==
LOC: C.EDB 11:08 → C.EDC 15:31
DX: F41.9 Anxiety disorder, unspecified (principal); R25.1 Tremor, unspecified; F60.9 Personality disorder, unspecified; F31.9 Bipolar disorder, unspecified; Z90.49 Acquired absence of other specified parts of digestive tract; E11.9 Type 2 diabetes mellitus without complications; J43.9 Emphysema, unspecified; M79.7 Fibromyalgia; I10 Essential (primary) hypertension; E03.9 Hypothyroidism, unspecified; Z87.01 Personal history of pneumonia (recurrent); Z81.1 Family history of alcohol abuse and dependence; Z80.9 Family history of malignant neoplasm, unspecified; Z82.49 Family history of ischemic heart disease and other diseases of the circulatory system; Z84.1 Family history of disorders of kidney and ureter; Z79.899 Other long term (current) drug therapy

== ENCOUNTER 2017-05-19 17:56 | Emergency (ER) | payer OTHER ==
[~2017-05-19] VITALS: Ht 154.9 cm; Wt 101.1 kg
[~2017-05-19 17:56] MED LIST changes: +CALCTAB7 PO; +CTP1 PO; +DPKSR/500 PO; +ESCI1TAB10 PO; -HLD5 PO; -LAMO200T38 PO; +LEVO50TA6 PO; -LEVO75TA PO; -LTHSR450 PO; -LXP10 PO; -METO-551 PO; +METO100T14 PO; +PREG150C PO; -PREG200C PO; +RMR15 PO; -TRAM-10 PO; +ULT50 PO
[2017-05-19 18:02] VITALS: TEMP 36.6; Ht 154.9 cm; Wt 101.1 kg
--- NOTE | 2017-05-19 19:18 | DIAGNOSTIC IMAGING REPORT ---
L-SPINE MIN 4 VIEWS ROUTINE HISTORY: 37 years-old Female LBP acute low back pain without known trauma COMPARISON: Lumbar spine MRI 06/28/2014 TECHNIQUE: 5 views of the lumbar spine FINDINGS: Cholecystectomy clips noted. There are 5 nonrib-bearing lumbar-type vertebral segments. No spondylolysis or spondylolisthesis. Mild intervertebral disc space narrowing redemonstrated at L5-S1. No acute fracture or subluxation. Minimal endplate spurring at L3-L4 and L4-L5. IMPRESSION: 1. No acute fracture or subluxation. 2. Mild intervertebral disc space narrowing at L5-S1. The above report was generated using voice recognition software. It may contain grammatical, syntax or spelling errors. Electronically signed by: Rudi Solano M.D. 05/19/2017 7:17 PM Dictated Date/Time: 05/19/2017 7:16 PM
[2017-05-19 19:36] VITALS: BP 118/91; PULSE 69; O2SAT 95
--- NOTE | 2017-05-19 20:31 | EMERGENCY ROOM VISIT NOTE ---
History First contact with patient: 18:24 Chief Complaint: BACK PAIN Stated Complaint: SHARP PAIN IN LOWER BACK 2MONTHS 2 MISSED PERIODS History of Present Illness The patient is a 37 year old female who presents to the Emergency Room with complaints of lower back pain for the past 2 months. The patient reports that she currently is in pain management for fibromyalgia. She has had back problems , but usually nothing this focused. She denies any known trauma to the back. She denies any pain extending into the buttocks or down the legs. She denies lower extremity weakness, saddle anesthesias or bladder/bowel incontinence. The patient reports that her pain clinic were going to order x-rays of her back , but never called her to schedule the x-rays. She therefore presents to the emergency department for further evaluation, rating her discomfort an 8 out of 10. Review of Systems 10 system review was performed and was negative except for pertinent positives and negatives as indicated in history of present illness Past Medical/Surgical History Medical Problems: (1) Altered mental state (2) ANXIETY STATE NOS (3) Bilateral eye complaint (4) BIPOL I, REC EPIS OR CURRENT MIXED, SEVERE, SPEC W PSYCH BEH (5) Bipolar 1 disorder (6) Borderline personality disorder (7) Cholecystectomy (8) Diabetes (9) Emphysema (10) Fibromyalgia (11) GERD (gastroesophageal reflux disease) (12) Granulocytosis (13) HTN (hypertension) (14) Hypothyroid (15) Hypoxia (16) Obesity (17) Past Psych Medications (18) Personality disorder (19) Personality disorder, unspecified (20) Pneumonia (21) Tic Surgical Problems: (1) H/O section Family History Alcoholism Cancer Heart disease Hypertension Kidney disease or stones Social History Smoking Status: Never Smoker Alcohol Use: none Drug Use: none Marital Status: in relationship Housing Status: lives with family Occupation Status: disabled Current/Historical Medications Scheduled Amlodipine Besylate (Norvasc), 10 MG PO DAILY Calcium Carbonate-Vitamin D W/ (Caltrate 600 Plus), 1 TAB PO BID Clonidine HCl (Clonidine HCl), 0.1 MG PO HS Divalproex Sodium (Depakote Etended-Release), 1,000 MG PO HS Escitalopram Oxalate (Lexapro), 20 MG PO DAILY Glimepiride (Glimepiride), 0.5 MG PO QAM Levothyroxine Sodium (Levothyroxine Sodium), 50 MG PO DAILY Lisinopril (Lisinopril), 2.5 MG PO DAILY Metoprolol Tartrate (Lopressor) (Lopressor), 100 MG PO BID Mirtazapine (Mirtazapine), 15 MG PO HS Omeprazole (Prilosec), 20 MG PO QPM Pregabalin (Lyrica), 1 CAP PO BID Tramadol HCl (Tramadol HCl), 25 MG PO BID Physical Exam Vital Signs Date Time Temp Pulse Resp B/P (MAP) Pulse Ox O2 Delivery O2 Flow Rate FiO2 05/19/17 19:36 69 22 118/91 95 05/19/17 18:02 36.6 74 20 132/84 98 Room Air Physical Exam CONSTITUTIONAL: Healthy and well nourished. Patient does not appear in any acute distress. HEENT: Normocephalic, atraumatic. Pupils equal, round and reactive. NECK: Full active range of motion without discomfort. RESPIRATORY: Clear to auscultation bilaterally with no wheezing, crackles, rhonchi or stridor. CARDIOVASCULAR: Regular rate and rhythm with no murmurs, rubs or gallops. MUSCULOSKELETAL: Examination of the back shows mild tenderness to palpation through the middle lumbar paraspinous muscles and central spine. No focal tenderness through the SI joints. Negative logroll. Negative sitting straight leg raise. Pedal pulses are intact. INTEGUMENTARY: No rash or other significant dermatologic conditions noted. NEUROLOGIC: Lower extremities are sensory intact. Medical Decision & Procedures ER Provider Diagnostic Interpretation: My interpretation of lumbar spine x-ray shows mild disc dairy at L5-S1, otherwise no other acute fractures or spondylolysis or spondylolisthesis noted. Radiologist report is as follows: L-SPINE MIN 4 VIEWS ROUTINE HISTORY: 37 years-old Female LBP acute low back pain without known trauma COMPARISON: Lumbar spine MRI 06/28/2014 TECHNIQUE: 5 views of the lumbar spine FINDINGS: Cholecystectomy clips noted. There are 5 nonrib-bearing lumbar-type vertebral segments. No spondylolysis or spondylolisthesis. Mild intervertebral disc space narrowing redemonstrated at L5-S1. No acute fracture or subluxation. Minimal endplate spurring at L3-L4 and L4-L5. IMPRESSION: 1. No acute fracture or subluxation. 2. Mild intervertebral disc space narrowing at L5-S1. ED Course Patient history and physical exam were performed. Nurse's notes were reviewed. Vital signs were reviewed and normal. X-rays of the lumbar spine were normal. The patient was encouraged to follow-up with her pain clinic for further management. Review of the [place] Prescription Drug Monitoring Program shows that the patient is currently on Lyrica and Ultram for pain. She was encouraged to alternate ice and heat to the back. Avoid sitting for long periods of time or heavy lifting. The patient voiced understanding of all discharge instructions, was happy with plan of care, and rated her discomfort a 5 out of 10 at the conclusion of my exam. Medical Decision [place] Drug Monitoring Program Search Results: patient reviewed within database, see additional documentation Medication Reconcilliation Current Medication List: was personally reviewed by me Blood Pressure Screening Patient's blood pressure: Normal blood pressure Impression Primary Impression: Acute lumbar back pain Departure Information Referrals No Doctor, Assigned (PCP) [facility]
== END 2017-05-19 19:37 | disposition home or self-care (01) ==
LOC: C.EDB 17:57 → C.EDD 19:37
DX: M54.5 Low back pain (principal); M79.7 Fibromyalgia; F41.9 Anxiety disorder, unspecified; F31.9 Bipolar disorder, unspecified; F60.3 Borderline personality disorder; Z90.49 Acquired absence of other specified parts of digestive tract; E11.9 Type 2 diabetes mellitus without complications; J43.9 Emphysema, unspecified; K21.9 Gastro-esophageal reflux disease without esophagitis; I10 Essential (primary) hypertension; E03.9 Hypothyroidism, unspecified; E66.9 Obesity, unspecified; Z87.01 Personal history of pneumonia (recurrent); Z79.899 Other long term (current) drug therapy; Z81.1 Family history of alcohol abuse and dependence; Z80.9 Family history of malignant neoplasm, unspecified; Z82.49 Family history of ischemic heart disease and other diseases of the circulatory system; Z84.1 Family history of disorders of kidney and ureter

== ENCOUNTER → 2017-05-27 | Outpatient (CLI) | payer OTHER ==
--- NOTE | 2017-05-27 11:11 | DIAGNOSTIC IMAGING REPORT ---
PELVIC COMPLETE NON OB HISTORY: 37 years-old Female [place] COMPARISON: Pelvic ultrasound 05/01/2016 TECHNIQUE: Multiple real-time sonographic images of the deep pelvic structures were obtained transabdominally and transvaginally assessing grayscale appearance, color and spectral flow FINDINGS: TRANSABDOMINAL: Pelvic structures are not well seen. Right ovary measures 3.2 x 2.2 x 2.5 cm and is unremarkable with arterial inflow documented. TRANSVAGINAL: Nabothian cysts of the cervix. Trace fluid is noted within the endocervical canal. Endometrium measures 9 mm in thickness. There is a hypoechoic lesion with ill-defined margins measuring 1.1 cm within the posterior aspect of the mid uterine body ingesting fibroid. Left ovary measures 2.8 x 2.3 x 2.8 cm with arterial inflow. No left adnexal mass lesions identified. The right ovary is not seen transvaginally. No significant free pelvic fluid. IMPRESSION: 1. 1 cm intramural or subserosal fibroid of the posterior mid uterine body. 2. Trace fluid within the endocervical canal. 3. Otherwise unremarkable sonographic appearance of the uterus and bilateral ovaries. The above report was generated using voice recognition software. It may contain grammatical, syntax or spelling errors. Electronically signed by: Rudi Solano M.D. 05/27/2017 11:09 AM Dictated Date/Time: 05/27/2017 11:04 AM
== END | disposition home or self-care (01) ==
LOC: C.ULTR 09:33
PROVIDERS: ATTEND Family Medicine
DX: N91.2 Amenorrhea, unspecified (principal); D25.9 Leiomyoma of uterus, unspecified

== ENCOUNTER → 2017-06-13 | Outpatient (CLI) | payer OTHER ==
[2017-06-13 13:44] LABS: LUTEINIZING HORMONE 2.89 IU/L; PROLACTIN 16.08 ng/mL
[2017-06-13 13:45] LABS: FOLLICLE STIMULAT HORMONE 4.39 IU/L
== END | disposition home or self-care (01) ==
LOC: C.LAB1850 10:13
PROVIDERS: ATTEND Physician Assistant
DX: N91.2 Amenorrhea, unspecified (principal)

== ENCOUNTER → 2017-08-08 | Outpatient (CLI) | payer OTHER ==
[2017-08-08 09:56] LABS: BLOOD UREA NITROGEN 20 mg/dl (7-18); CALCIUM 8.2 mg/dl (8.5-10.1); CARBON DIOXIDE 28 mmol/L (21-32); CREATININE 0.69 mg/dl (0.60-1.20); GLUCOSE 85 mg/dl (70-99); POTASSIUM 4.1 mmol/L (3.5-5.1); SODIUM 137 mmol/L (136-145)
== END | disposition home or self-care (01) ==
LOC: C.LAB 09:01
PROVIDERS: ATTEND Family Medicine
DX: M79.89 Other specified soft tissue disorders (principal); I10 Essential (primary) hypertension; G89.29 Other chronic pain

== ENCOUNTER 2017-11-08 12:42 | Emergency (ER) | payer OTHER ==
[~2017-11-08] VITALS: Ht 154.9 cm; Wt 102.7 kg
[2017-11-08 12:48] VITALS: Ht 154.9 cm; Wt 102.7 kg
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
[2017-11-08] MEDS ORDERED: LISI40TA PO (13:48)
[2017-11-08] MEDS ORDERED: PREG200C PO (13:48)
[2017-11-08 13:56] LABS: BASO % 0.2 %; BASO ABS # 0.02 K/uL (0-0.2); EOS % 0.9 %; EOS ABS # 0.08 K/uL (0-0.5); HEMATOCRIT 40.8 % (37-47); HEMOGLOBIN 13.5 g/dL (12.0-16.0); IG# 0.04 K/uL (0.00-0.02); LYMPH % 36.2 %; LYMPH ABS # 3.16 K/uL (1.2-3.4); MEAN CELL VOLUME 87.2 fL (80-100); MEAN CORPUSCULAR HEMOGLOBIN 28.8 pg (25-34); MEAN CORPUSCULAR HGB CONC 33.1 g/dl (32-36); MONO % 6.3 %; MONO ABS # 0.55 K/uL (0.11-0.59); NEUT % 55.9 %; NEUT ABS # 4.89 K/uL (1.4-6.5); PLATELET COUNT 271 K/uL (130-400); RED CELL DISTRIBUTION WIDTH CV 14.1 % (11.5-14.5); RED CELL DISTRIBUTION WIDTH SD 44.9 fL (36.4-46.3); WHITE BLOOD COUNT 8.74 K/uL (4.8-10.8)
[2017-11-08 14:27] LABS: ALBUMIN 3.5 gm/dl (3.4-5.0); ALKALINE PHOSPHATASE 93 U/L (45-117); ALT/SGPT 32 U/L (12-78); AST/SGOT 26 U/L (15-37); BLOOD UREA NITROGEN 9 mg/dl (7-18); CALCIUM 7.7 mg/dl (8.5-10.1); CARBON DIOXIDE 27 mmol/L (21-32); CREATININE 0.67 mg/dl (0.60-1.20); GLUCOSE 114 mg/dl (70-99); POTASSIUM 3.7 mmol/L (3.5-5.1); SODIUM 140 mmol/L (136-145); TOTAL PROTEIN 7.1 gm/dl (6.4-8.2)
[2017-11-08] MEDS ORDERED: LORAZEPAM 1 MG TAB PO STA (15:21)
[2017-11-08] MEDS ORDERED: LORAZEPAM 1 MG TAB PO PRN (15:30)
--- NOTE | 2017-11-08 19:32 | EMERGENCY ROOM VISIT NOTE ---
ED Visit Note First contact with patient: 19:[address] rod. patient 302. medically clear. awaiting placement 0026: vss. no psych facility currently has bed available for patient. case will be siged out to dr whitfield
[2017-11-08] MEDS: CALCIUM 600MG + VIT D 400 IU TAB PO SCH (20:55)
[2017-11-08] MEDS: PREGABALIN 100 MG CAP PO SCH (20:56)
[2017-11-08] MEDS ORDERED: CLONIDINE HCL 0.1 MG TAB PO SCH (21:00)
[2017-11-08] MEDS ORDERED: DIVALPROEX 500 MG EXTENDED RELEASE TAB PO SCH (21:00)
[2017-11-08] MEDS ORDERED: MIRTAZAPINE TAB 15 MG TAB PO SCH (21:00)
[2017-11-09] MEDS ORDERED: ACETAMINOPHEN 325 MG TAB ONE (00:31)
[2017-11-09] MEDS ORDERED: CLONAZEPAM 0.5 MG TAB PO STA (03:17)
--- NOTE | 2017-11-09 05:21 | EMERGENCY ROOM VISIT NOTE ---
ED Visit Note First contact with patient: 01:26 This case was signed out to me at change of shift awaiting bed placement. 302 paperwork has been signed. The bed search is currently suspended until morning. Morning medications have been ordered. The patient became quite anxious throughout the night and was agitated. She was requesting something to "knock her out." She told the nursing staff that the Ativan did not help her from earlier today. I ordered 1 mg of oral Klonopin. The patient did not feel any more relaxed. She took a shower and is comfortable at this time. The case will be signed out to Dr. Soria at change of shift awaiting bed placement.
[2017-11-09] MEDS: CALCIUM 600MG + VIT D 400 IU TAB PO SCH (08:52)
[2017-11-09] MEDS: PREGABALIN 100 MG CAP PO SCH (08:52)
[2017-11-09] MEDS ORDERED: ESCITALOPRAM OXALATE 20 MG TAB PO SCH (09:00)
[2017-11-09] MEDS ORDERED: LISINOPRIL 40 MG TAB PO SCH (09:00)
[2017-11-09] MEDS ORDERED: LEVOTHYROXINE 50 MCG TAB PO SCH (09:00)
--- NOTE | 2017-11-09 10:52 | EMERGENCY ROOM VISIT NOTE ---
ED Visit Note The patient was accepted at the [facility]. Secure transport arranged.
[2017-11-09 12:29] VITALS: BP 141/74; PULSE 86; TEMP 36.8; O2SAT 95
== END 2017-11-09 12:30 ==
LOC: C.EDB 12:43 → C.EDA 11-09 12:30
DX: F41.8 Other specified anxiety disorders (principal); R45.1 Restlessness and agitation; F31.9 Bipolar disorder, unspecified; I10 Essential (primary) hypertension; E03.9 Hypothyroidism, unspecified; E11.9 Type 2 diabetes mellitus without complications; F60.9 Personality disorder, unspecified; Z79.84 Long term (current) use of oral hypoglycemic drugs; Z79.899 Other long term (current) drug therapy; Z88.8 Allergy status to other drugs, medicaments and biological substances; Z88.6 Allergy status to analgesic agent

== ENCOUNTER 2019-02-21 19:29 | Inpatient (IN) ==
[2019-02-21 21:29] LABS: Basophils # (auto) 0.02 K/uL (0-0.2); Basophils % (auto) 0.2 %; Eosinophils # (auto) 0.08 K/uL (0-0.5); Eosinophils % (auto) 0.9 %; Hematocrit (blood only) 43.1 % (37-47); Hemoglobin 14.4 g/dL (12.0-16.0); Immature Granulocytes # (auto) 0.04 K/uL (0.00-0.02); Immature Granulocytes % (auto) 0.5 %; Lymphocytes # (auto) 3.51 K/uL (1.2-3.4); Lymphocytes % (auto) 40.6 %; Mean Corpuscular Hgb Conc 33.4 g/dL (32-36); Mean Corpuscular Volume 92.9 fL (80-100); Mean Platelet Volume 9.8 fL (7.4-10.4); Monocytes # (auto) 0.66 K/uL (0.11-0.59); Monocytes % (auto) 7.6 %; Neutrophils # (auto) 4.34 K/uL (1.4-6.5); Neutrophils % (auto) 50.2 %; Platelet Count 293 K/uL (130-400); RDW Coefficient of Variation 13.1 % (11.5-14.5); RDW Standard Deviation 44.1 fL (36.4-46.3); Red Blood Count 4.64 M/uL (4.2-5.4); White Blood Count 8.65 K/uL (4.8-10.8)
[2019-02-21 21:36] LABS: Appearance Urine Clear (Clear); Bacteria Urine Automated Negative (Negative); Bilirubin Urine Negative (Negative); Blood Urine Negative (Negative); Color Urine Yellow; Glucose Urine UA Negative (Negative); Ketones Urine Negative (Negative); Leukocyte Esterase Urine 1+ (Negative); Nitrite Urine Negative (Negative); Protein Urine Negative (Negative); RBC Urine Automated 0-4 /hpf (0-4); Specific Gravity Urine 1.025 (1.000-1.030); Urobilinogen Urine Negative (Negative); pH Urine 6.5 (4.5-7.5)
[2019-02-21 21:42] LABS: Acetaminophen < 2 ug/ml (10-30); Salicylate < 1.7 mg/dl (2.8-20)
[2019-02-21 21:47] LABS: Albumin Level 3.4 gm/dl (3.4-5.0); Calcium 8.8 mg/dl (8.5-10.1); Creatinine Clr Calc Pharmacy 115.4 ml/min; Est GFR (African American) 123.1; Est GFR (Non-African American) 106.2; Potassium 3.7 mmol/L (3.5-5.1)
[2019-02-21 21:55] LABS: Bilirubin,Total 0.2 mg/dl (0.2-1); Globulin 3.5 gm/dl (2.5-4.0); Thyroid Stimulating Hormone 1.24 uIu/ml (0.300-4.500); Total Protein 6.9 gm/dl (6.4-8.2)
[2019-02-21 22:04] LABS: Amphetamines+Metham, Urine Neg (Neg); Barbiturates, Urine Neg (Neg); Benzodiazepine, Urine Neg (Neg); Cocaine, Urine Neg (Neg); MDMA (Ecstacy), Urine Neg (Neg); Methadone, Urine Neg (Neg); Opiate, Urine Neg (Neg); Phencyclidine, Urine Neg (Neg)
[2019-02-21 22:05] LABS: Pregnancy Test, Urine Negative (Negative)
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
[2019-02-21] MEDS ORDERED: ACETAMINOPHEN 325 MG TAB PO STA (23:35)
[2019-02-22] MEDS ORDERED: SODIUM CHLORIDE 0.65% NA SOLN 45 ML (OCEAN) PRN (01:35)
[2019-02-22] MEDS ORDERED: BISMUTH SUBSALICYLATE PER ML OMNICELL CHARGE PO PRN (01:35)
[2019-02-22] MEDS ORDERED: ALUMINUM/MAGNESIUM SUSP 30 ML UDC PO PRN (01:35)
[2019-02-22] MEDS ORDERED: MAGNESIUM HYDROXIDE SUSP 30 ML UDC PO PRN (01:35)
[2019-02-22] MEDS ORDERED: ACETAMINOPHEN 325 MG TAB PO PRN (01:35)
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
[2019-02-22] MEDS ORDERED: CRANBERRY EXTRACT 200 MG PO SCH (14:00)
[2019-02-22] MEDS: GABAPENTIN 600 MG TAB PO SCH ×2 (15:06→21:16)
[2019-02-22] MEDS: cloNIDine HCl 0.1 MG TAB PO SCH ×2 (15:10→21:16)
[2019-02-22] MEDS: BusPIRone 15 MG TAB PO SCH (17:22)
[2019-02-22] MEDS ORDERED: METOPROLOL TARTRATE 50 MG TAB PO SCH (21:00)
[2019-02-22] MEDS ORDERED: TRAZODONE HCL 100 MG TAB PO SCH (22:00)
[2019-02-22] MEDS ORDERED: OXYBUTYNIN CHLORIDE 5 MG TAB PO SCH (22:00)
[2019-02-22] MEDS ORDERED: NORTRIPTYLINE HCL 25 MG CAP PO SCH (22:00)
[2019-02-22] MEDS ORDERED: DIVALPROEX DELAY RELEASE 500 MG TAB PO SCH (22:00)
[2019-02-22] MEDS ORDERED: BusPIRone 15 MG TAB PO SCH (22:00)
[2019-02-23] MEDS: BusPIRone 15 MG TAB PO SCH (07:51)
[2019-02-23] MEDS: cloNIDine HCl 0.1 MG TAB PO SCH ×2 (07:52→14:02)
[2019-02-23] MEDS: GABAPENTIN 600 MG TAB PO SCH ×2 (07:52→14:02)
[2019-02-23] MEDS ORDERED: LISINOPRIL 5 MG TAB PO SCH (09:00)
[2019-02-23] MEDS ORDERED: NORTRIPTYLINE HCL 10 MG CAP PO SCH (09:00)
[2019-02-23] MEDS ORDERED: PANTOprazole 40 MG TAB PO SCH (09:00)
[2019-02-23] MEDS ORDERED: GLIMEPIRIDE 2 MG TAB PO SCH (09:00)
[2019-02-23] MEDS ORDERED: FENOFIBRATE NANOCRYSTALLIZED 145 MG TABLET PO SCH (09:00)
[2019-02-23] MEDS ORDERED: DIVALPROEX DELAY RELEASE 250 MG TABEC PO SCH (09:00)
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
== END 2019-02-23 16:55 | disposition home or self-care (01) | DRG 885 ==
LOC: ED 19:29 → 3S 02-22 00:55

== ENCOUNTER 2021-07-31 11:12 | Inpatient (IN) ==
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
[2021-07-31 12:15] LABS: Appearance Urine Clear (Clear); Bacteria Urine Automated Negative (Negative); Bilirubin Urine Negative (Negative); Blood Urine 3+ (Negative); Color Urine Yellow; Epithelial Cell Urine Auto >30 /lpf (0-5); Glucose Urine UA Negative (Negative); Ketones Urine Negative (Negative); Leukocyte Esterase Urine Negative (Negative); Nitrite Urine Negative (Negative); Protein Urine Negative (Negative); RBC Urine Automated >30 /hpf (0-4); Specific Gravity Urine 1.018 (1.000-1.030); Urobilinogen Urine Negative (Negative)
[2021-07-31 12:25] LABS: Basophils # (auto) 0.01 K/uL (0-0.2); Basophils % (auto) 0.1 %; Eosinophils # (auto) 0.08 K/uL (0-0.5); Eosinophils % (auto) 0.9 %; Hematocrit (blood only) 43.3 % (37-47); Hemoglobin 14.6 g/dL (12.0-16.0); Immature Granulocytes # (auto) 0.02 K/uL (0.00-0.02); Immature Granulocytes % (auto) 0.2 %; Lymphocytes # (auto) 2.47 K/uL (1.2-3.4); Lymphocytes % (auto) 26.9 %; Mean Corpuscular Hemoglobin 30.5 pg (25-34); Mean Corpuscular Hgb Conc 33.7 g/dL (32-36); Mean Corpuscular Volume 90.6 fL (80-100); Mean Platelet Volume 9.9 fL (7.4-10.4); Monocytes # (auto) 0.65 K/uL (0.11-0.59); Monocytes % (auto) 7.1 %; Neutrophils # (auto) 5.95 K/uL (1.4-6.5); Neutrophils % (auto) 64.8 %; Platelet Count 337 K/uL (130-400); RDW Coefficient of Variation 13.1 % (11.5-14.5); RDW Standard Deviation 43.7 fL (36.4-46.3); Red Blood Count 4.78 M/uL (4.2-5.4); White Blood Count 9.18 K/uL (4.8-10.8)
[2021-07-31 12:33] LABS: Acetaminophen < 3 ug/ml (10-30); Salicylate < 3.0 mg/dl (3.0-30)
[2021-07-31 12:46] LABS: Albumin Globulin Ratio 1.4 (0.9-2); Albumin Level 4.2 gm/dl (3.4-5.0); BUN Creatinine Ratio 14.8 (10-20); Bilirubin,Total 0.2 mg/dl (0.2-1.0); Calcium 8.7 mg/dl (8.5-10.1); Creatinine Clr Calc Pharmacy 146.8 ml/min; Est GFR (African American) 136.8 ml/min; Globulin 2.9 gm/dl (2.5-4.0); Potassium 3.5 mmol/L (3.5-5.1); Total Protein 7.1 gm/dl (6.0-8.3)
[2021-07-31 12:47] LABS: Amphetamines+Metham, Urine Neg (Neg); Barbiturates, Urine Neg (Neg); Benzodiazepine, Urine Neg (Neg); Cocaine, Urine Neg (Neg); MDMA (Ecstacy), Urine Neg (Neg); Methadone, Urine Neg (Neg); Opiate, Urine Neg (Neg); Phencyclidine, Urine Neg (Neg)
[2021-07-31] MEDS ORDERED: NICOTINE 21 MG/24 HR TDSY TD STA (13:25)
--- NOTE | 2021-07-31 15:16 | Emergency Department Note ---
ED Visit Note Received this patient in signout. Suicidal ideation worsening over the past week with thoughts of possibly using a gun from her 's truck. Patient voluntary status at this time wishing for inpatient treatment. Evaluated by [facility] and accepted for inpatient treatment here on 201. .
[2021-07-31 16:16] LABS: Pregnancy Test, Urine Negative (Negative)
[2021-07-31] MEDS ORDERED: hydrOXYzine HCl 25 MG TAB PO PRN ×2 (16:55)
[2021-07-31] MEDS ORDERED: MAGNESIUM HYDROXIDE SUSP 30 ML UDC PO PRN (16:55)
[2021-07-31] MEDS ORDERED: SODIUM CHLORIDE 0.65% NA SOLN 45 ML (OCEAN) PRN (16:55)
[2021-07-31] MEDS ORDERED: ALUMINUM/MAGNESIUM SUSP 30 ML UDC PO PRN (16:55)
[2021-07-31] MEDS ORDERED: BISMUTH SUBSALICYLATE LIQD 236 ML PO PRN (16:55)
[2021-07-31] MEDS ORDERED: ACETAMINOPHEN 325 MG TAB PO PRN (16:55)
[2021-07-31] MEDS: GABAPENTIN 600 MG TAB PO SCH (20:40)
[2021-07-31] MEDS: busPIRone 15 MG TAB PO SCH (20:40)
[2021-07-31] MEDS: GABAPENTIN 100 MG CAP PO SCH (20:40)
[2021-08-01] MEDS ORDERED: PNEUMOCOCCAL Polysaccharide Vaccine 25mcg/0.5mL vial/Syr IM ONE (01:45)
[2021-08-01] MEDS: CARIPRAZINE HCL 6 MG PO SCH (08:24)
[2021-08-01] MEDS: GABAPENTIN 100 MG CAP PO SCH ×3 (08:26→21:18)
[2021-08-01] MEDS: GABAPENTIN 600 MG TAB PO SCH ×3 (08:26→21:18)
[2021-08-01] MEDS: NICOTINE 21 MG/24 HR TDSY TD SCH (08:26)
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
[2021-08-01] MEDS: busPIRone 15 MG TAB PO SCH ×3 (11:49→21:17)
[2021-08-01] MEDS: carBAMazepine 200 MG TABLET PO SCH ×2 (11:50→21:17)
[2021-08-01] MEDS: hydroCHLOROthiazide 25 MG TAB PO SCH (11:51)
[2021-08-01] MEDS: CALCIUM 600MG + VIT D 400 IU TAB PO SCH ×2 (11:51→21:17)
[2021-08-01] MEDS: lisinopril 40 MG TAB PO SCH (11:52)
[2021-08-01] MEDS: METOPROLOL TARTRATE 50 MG TAB PO SCH ×2 (11:53→21:17)
[2021-08-01] MEDS: MULTIVITAMIN TAB PO SCH (11:53)
[2021-08-01] MEDS: buPROPion XL 150 MG TABCR PO SCH (11:54)
[2021-08-01] MEDS: NICOTINE POLACRILEX 2 MG GUM MT PRN (12:52)
[2021-08-01] MEDS: PANTOprazole 40 MG TAB PO SCH (21:18)
[2021-08-01] MEDS ORDERED: busPIRone 15 MG TAB PO SCH (22:00)
[2021-08-02] MEDS: NICOTINE POLACRILEX 2 MG GUM MT PRN ×2 (07:26→14:13)
[2021-08-02] MEDS: busPIRone 15 MG TAB PO SCH ×3 (07:26→21:06)
[2021-08-02] MEDS: NICOTINE 21 MG/24 HR TDSY TD SCH (08:00)
[2021-08-02] MEDS: buPROPion XL 150 MG TABCR PO SCH (08:01)
[2021-08-02] MEDS: CALCIUM 600MG + VIT D 400 IU TAB PO SCH ×2 (08:02→21:02)
[2021-08-02] MEDS: carBAMazepine 200 MG TABLET PO SCH ×2 (08:02→21:06)
[2021-08-02] MEDS: CARIPRAZINE HCL 6 MG PO SCH (08:04)
[2021-08-02] MEDS: GABAPENTIN 600 MG TAB PO SCH ×3 (08:04→21:02)
[2021-08-02] MEDS: GABAPENTIN 100 MG CAP PO SCH ×3 (08:04→21:03)
[2021-08-02] MEDS: hydroCHLOROthiazide 25 MG TAB PO SCH (08:05)
[2021-08-02] MEDS: METOPROLOL TARTRATE 50 MG TAB PO SCH ×2 (08:06→21:03)
[2021-08-02] MEDS: lisinopril 40 MG TAB PO SCH (08:06)
[2021-08-02] MEDS: MULTIVITAMIN TAB PO SCH (08:07)
[2021-08-02] MEDS ORDERED: SEMAGLUTIDE 4 MG/3 ML SQ SCH (09:00)
[2021-08-02 09:37] LABS: Cholesterol 225 mg/dl (0-200); Glucose Fasting 93 mg/dl (70-99); HDL Cholesterol 44 mg/dl; Triglycerides 418 mg/dl (0-150)
[2021-08-02 09:40] LABS: Chol HDL Ratio 5.1 (0-5)
--- NOTE | 2021-08-02 11:04 | Psychiatric Progress Note ---
Date of Service August 02, 2021 Impression / Recommendations Impression The patient is a 41 year old with a history of BPAD, PTSD, BPD who was admitted for worsening depression and SI with plan to shoot herself with her 's gun in the context of grieving the of her dog, son's challenging behaviors and recent argument with peers during psych rehab group therapy session. Diagnostically consistent with MDD, moderate with anxious distress and BPD with increased emotional distress in context of feelings of rejection from argument with peers leading to emergence of intensified SI. Counseled on importance of removing guns from her home or limiting her access which will be reviewed during the family meeting with her life partner. The patient is deemed unstable and requires psychiatric hospitalization for diagnostic clarification, safety and stabilization, medication management and development of further coping skills. 08/02/21: As per Dr. James above, remains very depressed/fatigued/hopeless. (1) Recurrent moderate major depressive disorder with anxiety: (2) Bipolar affective disorder, currently depressed, moderate: (3) Suicidal ideations: (4) Post traumatic stress disorder (PTSD): (5) Borderline personality disorder: (6) DELANEY (generalized anxiety disorder): 08/02/21: Wellbutrin trial. Declines shift in Neurontin dosing at this time. reviewed fasting cholesterol panel and risk of pancreatitis given triglycerides >300, has been nearly 600 previously. States she stopped her omega 3 FA as unusure it was helping and has been historically irregardless of her antipsychotic medication. 08/01/21: The patient was admitted to the [facility] ([facility] mental health unit) on q15 min checks (behavioral with suicide precautions) for safety. The patient will participate in group, recreational, and milieu therapies and will be offered additional individual and family sessions as clinically appropriate. -Continue prior to admission medications including Vraylar 6mg qd, gabapentin 700mg TID (for back pain), buspar 15/15/30mg, tegretol 600mg BID; will hold home clonidine as she's uncertain if she's been taking it and discussed it could be contributing to fatigue -Wellbutrin 150mg XL for depression augmentation and smoking cessation -NRT patch and gum -fasting lipid panel and glucose given outpatient Vraylar use Inventory Assets Strengths: supportive family, outpatient supports, has been able to remain stable in outpatient setting since 2019 Needs: additional coping skills, medication adjustment, safety planning Risk Factors Assessment Male: No : Yes Do You Have Access To A Gun?: Yes (not anymore, [employer] has removed that from the home) Health Problems: Yes Mental Health Diagnoses: Yes Substance Use Disorders: No Previous Attempt: Yes Family History of Suicide: Yes Previous Psychiatric Hospitalization: Yes Hopelessness: Yes Smoker: Yes Protective Factors Assessment : Yes Responsible for Young Children: No Employed: No Stable Relationships: Yes Supportive Family: Yes Good Rapport with Provider: Yes Interval History Identifying Information FRANK HERNANDEZ is a 41-year-old woman who currently lives in [facility] with her /life partner and son, has a history of BPAD, PTSD, BPD multiple prior psychiatric hospitalizations (last in 2019), multiple prior suicide attempts, and was admitted on 07/31/21 16:16 on a 201 voluntary commitment for worsening depression and SI with plan of shooting herself with her partner's gun. Chief Complaint "I'm just so tired". Review of Systems Sleep Information Total Hours of Sleep: 7 Meal Information Percent Meal Consumed - Breakfast: 100 Percent Meal Consumed - Lunch: 90 Percent Meal Consumed - Dinner: 40 Subjective Subjective Patient was seen & assessed and interval progress reviewed with treatment team. Patient rated mood as a -3 last pm, ongoing wish/hopelessness, reports sleeping alot but also frequent awakenings at night to use the restroom. Has difficult staying awake in groups. Says she has been worked up for sleep apnea previously and was negative, TSH this stay normal. Just took 2nd dose of wellbutrin. Patient denies any recent shifts in med dosing. Physical Exam Psychiatric Orientation: alert and oriented x 3 Apperance: appropriately dressed and appropriately groomed Eye Contact: good eye contact Motor Behavior: no abnormal motor movements Speech: normal rate/rhythm/volume of speech Affect: + depressed affect Mood: + depressed mood and + anxious mood Thought Process: goal directed thought process Thought Content: reality based without delusions Suicidal Thoughts: denies suicidal plan and denies suicidal intent; + reports suicidal thoughts (intermittent passive thoughts ) Homicidal Thoughts: denies homicidal thoughts Hallucinations: no auditory hallucinations and no visual hallucinations Cognition: recent memory grossly intact, remote memory grossly intact, attention grossly intact and language grossly intact Estimated Intelligence: consistent with education level Insight: + fair insight Judgement: + fair judgement Vital Signs (Past 24 Hours) Last Vital Signs Temp 36.8 C 08/02/21 06:00 Pulse 76 08/02/21 06:11 Resp 16 08/02/21 06:00 BP 136/84 08/02/21 06:11 Pulse Ox 99 08/01/21 06:15 Results & Data ([facility]) Laboratory Results Laboratory Results - last 24 hr 08/01/21 08/01/21 08/02/21 17:35 21:16 08:12 POC Glucose 106 H 105 H 99 Fasting Glucose Triglycerides Cholesterol LDL Cholesterol, Calc VLDL Cholesterol, Calc HDL Cholesterol Cholesterol/HDL Ratio 08/02/21 08:32 POC Glucose Fasting Glucose 93 Triglycerides 418 H Cholesterol 225 H LDL Cholesterol, Calc TNP VLDL Cholesterol, Calc TNP HDL Cholesterol 44 Cholesterol/HDL Ratio 5.1 H Current Inpatient Medications Current Inpatient Medications: Current Inpatient Medications Acetaminophen (Acetaminophen 325 Mg Tab) 650 mg PO Q4H PRN PRN Reason: Headache or Minor Fever Stop: 08/30/21 16:54 Last Admin: 08/01/21 08:27 Dose: 650 mg Documented by: Al Hydrox/Mg Hydrox/Simethicone (Aluminum/Magnesium Susp 30 Ml Udc) 30 ml PO Q4H PRN PRN Reason: GI Upset Stop: 08/30/21 16:54 Bismuth Subsalicylate (Bismuth Subsalicylate Liqd 236 Ml) 15 ml PO PRN PRN PRN Reason: Loose Stool Stop: 08/30/21 16:54 Bupropion HCl (Bupropion Xl 150 Mg Tabcr) 150 mg PO QAM [facility] Stop: 08/31/21 11:14 Last Admin: 08/02/21 08:01 Dose: 150 mg Documented by: Buspirone HCl (Buspirone 15 Mg Tab) 30 mg PO HS [facility] Stop: 08/30/21 21:59 Last Admin: 08/01/21 21:17 Dose: 30 mg Documented by: Buspirone HCl (Buspirone 15 Mg Tab) 15 mg PO BID@0800,1400 [facility] Stop: 08/31/21 10:44 Last Admin: 08/02/21 07:26 Dose: 15 mg Documented by: Carbamazepine (Carbamazepine 200 Mg Tablet) 600 mg PO BID [facility] Stop: 08/31/21 10:44 Last Admin: 08/02/21 08:02 Dose: 600 mg Documented by: Cariprazine (Cariprazine Hcl 6mg) 1 ea PO DAILY@0900 [facility] Stop: 08/31/21 08:59 Last Admin: 08/02/21 08:04 Dose: 1 ea Documented by: Gabapentin (Gabapentin 100 Mg Cap) 100 mg PO TID [facility] Stop: 08/31/21 13:59 Last Admin: 08/02/21 08:04 Dose: 100 mg Documented by: Gabapentin (Gabapentin 600 Mg Tab) 600 mg PO TID [facility] Stop: 08/31/21 13:59 Last Admin: 08/02/21 08:04 Dose: 600 mg Documented by: Hydrochlorothiazide (Hydrochlorothiazide 25 Mg Tab) 12.5 mg PO DAILY [facility] Stop: 08/31/21 10:59 Last Admin: 08/02/21 08:05 Dose: 12.5 mg Documented by: Hydroxyzine HCl (Hydroxyzine Hcl 25 Mg Tab) 50 mg PO HSZ PRN PRN Reason: Insomnia Stop: 08/30/21 16:54 Hydroxyzine HCl (Hydroxyzine Hcl 25 Mg Tab) 25 mg PO Q4H PRN PRN Reason: Anxiety Stop: 08/30/21 16:54 Lisinopril (Lisinopril 40 Mg Tab) 40 mg PO DAILY [facility] Stop: 08/31/21 10:59 Last Admin: 08/02/21 08:06 Dose: 40 mg Documented by: Magnesium Hydroxide (Magnesium Hydroxide Susp 30 Ml Udc) 30 ml PO DAILY PRN PRN Reason: Constipation Stop: 08/30/21 16:54 Metoprolol Tartrate (Metoprolol Tartrate 50 Mg Tab) 50 mg PO BID [facility] Stop: 08/31/21 10:59 Last Admin: 08/02/21 08:06 Dose: 50 mg Documented by: Miscellaneous (Remove Nicoderm Patch) 1 ea N/A DAILY@0859 [facility] Stop: 08/31/21 08:58 Last Admin: 08/02/21 08:26 Dose: 1 ea Documented by: Multivitamins (Multivitamin Tab) 1 tab PO QAM [facility] Stop: 08/31/21 10:59 Last Admin: 08/02/21 08:07 Dose: 1 tab Documented by: Multivitamins/Minerals (Calcium 600mg + Vit D 400 Iu Tab) 1 tab PO BID [facility] Stop: 08/31/21 10:59 Last Admin: 08/02/21 08:02 Dose: 1 tab Documented by: Nicotine (Nicotine 21 Mg/24 Hr Tdsy) 21 mg TD QAM [facility] Stop: 08/31/21 08:59 Last Admin: 08/02/21 08:00 Dose: 21 mg Documented by: Nicotine Polacrilex (Nicotine Polacrilex 2 Mg Gum) 1 piece MT Q1H PRN PRN Reason: nicotine cravings Stop: 08/31/21 11:12 Last Admin: 08/02/21 07:26 Dose: 1 piece Documented by: Pantoprazole Sodium (Pantoprazole 40 Mg Tab) 40 mg PO QPM [facility]EREE; Protocol Stop: 08/31/21 20:59 Last Admin: 08/01/21 21:18 Dose: 40 mg Documented by: Semaglutide (Semaglutide Inj 4 Mg/3 Ml Pen) 1 ea SQ Fr@0900 [facility] Stop: 09/01/21 08:59 Last Admin: 08/02/21 08:19 Dose: 1 ea Documented by: Sodium Chloride (Sodium Chloride 0.65% Na Soln 45 Ml ([place])) 1 - 2 sprays NA PRN PRN PRN Reason: Nasal Dryness/Congestion Stop: 08/30/21 16:54 Mental Health & Subst Abuse Tx Psychiatrist Name of Psychiatrist: Elizabeth Nelson Psychiatrist's Phone Number: [phone] Date of Appointment with Psychiatrist: 08/26/21 Time of Appointment with Psychiatrist: 1pm Psychiatric Appointment Comment: [address] 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 Foreman Name of Drywall Finisher Foreman: [facility] Phone Number for Drywall Finisher Foreman: [phone] Case Management Appointment Comment: in-home/community Post Discharge Appointments Primary Care Physician Name Of Family Doctor: [facility] Date of Appointment with PCP: 08/12/21 Time of Appointment with PCP: 9 a.m Provider Appointment Comment: [address] [place] [id number] Partial or Psych Rehab Name of Partial or Psych Rehab: [facility] Phone Number of Partial or Psych Rehab: [phone] Partial or Psych Rehab Appointment Comment: [address], [place] [address] Home Health Services Home Health Services:: None Contact Information Discharge Address: [place] [address]
[2021-08-02] MEDS: PANTOprazole 40 MG TAB PO SCH (21:04)
[2021-08-03] MEDS: busPIRone 15 MG TAB PO SCH ×2 (07:30→13:03)
[2021-08-03] MEDS: carBAMazepine 200 MG TABLET PO SCH (07:30)
[2021-08-03] MEDS: METOPROLOL TARTRATE 50 MG TAB PO SCH (07:31)
[2021-08-03] MEDS: hydroCHLOROthiazide 25 MG TAB PO SCH (07:31)
[2021-08-03] MEDS: buPROPion XL 150 MG TABCR PO SCH (07:31)
[2021-08-03] MEDS: GABAPENTIN 100 MG CAP PO SCH ×2 (07:32→13:03)
[2021-08-03] MEDS: GABAPENTIN 600 MG TAB PO SCH ×2 (07:32→13:03)
[2021-08-03] MEDS: lisinopril 40 MG TAB PO SCH (07:32)
[2021-08-03] MEDS: CARIPRAZINE HCL 6 MG PO SCH (07:32)
[2021-08-03] MEDS: MULTIVITAMIN TAB PO SCH (07:32)
[2021-08-03] MEDS: CALCIUM 600MG + VIT D 400 IU TAB PO SCH (07:32)
[2021-08-03] MEDS: NICOTINE 21 MG/24 HR TDSY TD SCH (07:39)
--- NOTE | 2021-08-03 11:54 | Discharge Summary ---
Date of Service August 03, 2021 History of Present Illness As per Dr. James on admission: Magaly presents for admission for worsening depression over the past four months and intensifying SI in the last few days with plan of shooting herself with her life partner's gun in the context of multiple psychosocial stressors including of her dog in April, managing her son's behavioral challenges and a recent argument with peers at psych rehab during group therapy session. She notes a staff member left CSG and Magaly misinterpreted how a peer responded to to this news and she felt frustrated and this transition has been impacting other peers. She notes that the CSG has developed into "lots of gossip" and on she made an attempt to set some limits with peers regarding this dynamic which "lead me to loss two friends". She endorses depressive symptoms including: hopelessness, anhedonia, low energy, increased sleep (some days recently more than 12 hours), decreased motivation, variable appetite, and increasing thoughts of SI with plan. Also endorses worsening anxiety in context of recent argument with peers and worsening depression. She is currently prescribed: Vryalar 6mg for BPAD mood stabilization (few months) and seems to be helping as well as buspar 15qAm/15 noon/30mg qhs for anxiety (she feels this works well), gabapentin 700mg TID for mood stabilization/anxiety and carbamazepine 600mg BID for mood. She thinks she may have been taking clonidine 0.1 mg but can't recall. Her psychiatric provider had prescribed sertraline 25mg on Thursday but she notes she can became irritable with SSRIs and couldn't pick it up yet due to issues with her pharmacy hours. She also has a neurostimulator for her bladder. Psychiatric ROS pertinent positives: self-harm in the past (none in recent years), hx trauma and PTSD sx (flashbacks at times). Pertinent negatives of: no current symptoms of suze (last a few years ago) nor psychosis, no hx or current symptoms of eating disorder. Physical Exam Psychiatric See admission H&P and DOD assessment. Vital Signs (Past 24 Hours) Last Vital Signs Temp 36.9 C 08/03/21 06:35 Pulse 86 08/03/21 06:36 Resp 16 08/03/21 06:35 BP 139/91 08/03/21 06:36 Pulse Ox 99 08/01/21 06:15 Principal Diagnosis bipolar disorder, most recent episode depressed Psychiatric Data See daily stay summary. In short, safety was maintained and the patient was cooperative with care. Medication changes included d/c of SSRI in favor of a trial of Wellbutrin XL and they tolerated this well and note some improvement in energy by day 2. A family session was held with her who confirmed that weapons are secure, after which she requested immediate discharge. They had plans as a couple this pm that she did not want to miss and feels that she would be less anxious about her son's health issues at home (he was in ED last pm for complications of eating disorder). A safety plan was completed prior to discharge. There is no evidence of psychosis or suze interfering with her medical decision making and there are no criteria for involuntary commitment. Aftercare is in place so discharge request was granted. She is encouraged to follow up with primary care for monitoring of thyroid, cho lesterol, hypertriglyceridemia, etc. Day of Discharge Assessment Today the patient voices readiness for discharge. They note improvement in mood and deny thoughts to harm self or others. Thoughts remain organized and they are improved from admission. There is no evidence of psychosis. They agree to take mediations as prescribed and keep follow-up appointments. They are stable for discharge to outpatient level of care. Transition of Care Transition Of Care Record: was reviewed with the patient Advance Directives Advance Directives Information Provided: Yes Advance Directives: No Mental Health Advance Directive: No Advance Directives on File: No Living Will: No Power of Legal Document Specialist: No Advance Directives Reason:: Declines as Mental Health Visit. Risk Factors Assessment Male: No : Yes Do You Have Access To A Gun?: No Health Problems: Yes Mental Health Diagnoses: Yes Substance Use Disorders: No Previous Attempt: Yes Family History of Suicide: Yes Previous Psychiatric Hospitalization: Yes Hopelessness: Yes Smoker: Yes Protective Factors Assessment : Yes Responsible for Young Children: No Employed: No Stable Relationships: Yes Supportive Family: Yes Good Rapport with Provider: Yes Tobacco Cessation at Discharge Tobacco Cessation Medication Prescribed at Discharge: Offered & Pt Refused Total Time Total Time Spent: Greater Than 30 Minutes Discharge Data Lab Results 07/31/21 07/31/21 07/31/21 11:21 11:21 11:44 WBC 9.18 RBC 4.78 Hgb 14.6 Hct 43.3 MCV 90.6 MCH 30.5 MCHC 33.7 RDW Std Deviation 43.7 RDW Coeff of Senait 13.1 Plt Count 337 MPV 9.9 Immature Gran % (Auto) 0.2 Neut % (Auto) 64.8 Lymph % (Auto) 26.9 [place] % (Auto) 7.1 Eos % (Auto) 0.9 Baso % (Auto) 0.1 Neut # (Auto) 5.95 Lymph # (Auto) 2.47 [place] # (Auto) 0.65 H Eos # (Auto) 0.08 Baso # (Auto) 0.01 Immature Gran # (Auto) 0.02 Sodium Potassium Chloride Carbon Dioxide Anion Gap BUN Creatinine Est Cr Clr Drug Dosing Est GFR ( Amer) Est GFR (Non-Af Amer) BUN/Creatinine Ratio Glucose POC Glucose Fasting Glucose Calcium Total Bilirubin AST ALT Alkaline Phosphatase Total Protein Albumin Globulin Albumin/Globulin Ratio Triglycerides Cholesterol LDL Cholesterol, Calc VLDL Cholesterol, Calc HDL Cholesterol Cholesterol/HDL Ratio TSH Urine Color Yellow Urine Appearance Clear Urine pH 6.0 Ur Specific [place] 1.018 Urine Protein Negative Urine Glucose (UA) Negative Urine Ketones Negative Urine Blood 3+ H Urine Nitrite Negative Urine Bilirubin Negative Urine Urobilinogen Negative Ur Leukocyte Esterase Negative Urine WBC (Auto) 1-5 Urine RBC (Auto) >30 H U Hyaline Cast (Auto) 1-5 U Epithel Cells (Auto) >30 H Urine Bacteria (Auto) Negative Urine Test Salicylates Urine Opiates Screen Neg Ur Methadone, Qual Neg Acetaminophen Urine Barbiturates Neg Ur Phencyclidine (PCP) Neg U Amphetamin/Meth Scrn Neg MDMA (Ecstasy) Screen Neg U Benzodiazepines Scrn Neg Ur Cocaine Metabolite Neg U Marijuana (THC) Screen Neg Ethyl Alcohol mg/dL SARS-CoV-2, RNA, NAAT 07/31/21 07/31/21 07/31/21 11:44 11:44 11:44 WBC RBC Hgb Hct MCV MCH MCHC RDW Std Deviation RDW Coeff of Senait Plt Count MPV Immature Gran % (Auto) Neut % (Auto) Lymph % (Auto) [place] % (Auto) Eos % (Auto) Baso % (Auto) Neut # (Auto) Lymph # (Auto) [place] # (Auto) Eos # (Auto) Baso # (Auto) Immature Gran # (Auto) Sodium 139 Potassium 3.5 Chloride 102 Carbon Dioxide 26 Anion Gap 11 BUN 8 Creatinine 0.54 L Est Cr Clr Drug Dosing 146.8 Est GFR ( Amer) 136.8 Est GFR (Non-Af Amer) 118.0 BUN/Creatinine Ratio 14.8 Glucose 84 POC Glucose Fasting Glucose Calcium 8.7 Total Bilirubin 0.2 AST 14 ALT 15 Alkaline Phosphatase 106 H Total Protein 7.1 Albumin 4.2 Globulin 2.9 Albumin/Globulin Ratio 1.4 Triglycerides Cholesterol LDL Cholesterol, Calc VLDL Cholesterol, Calc HDL Cholesterol Cholesterol/HDL Ratio TSH 1.035 Urine Color Urine Appearance Urine pH Ur Specific [place] Urine Protein Urine Glucose (UA) Urine Ketones Urine Blood Urine Nitrite Urine Bilirubin Urine Urobilinogen Ur Leukocyte Esterase Urine WBC (Auto) Urine RBC (Auto) U Hyaline Cast (Auto) U Epithel Cells (Auto) Urine Bacteria (Auto) Urine Test Salicylates < 3.0 L Urine Opiates Screen Ur Methadone, Qual Acetaminophen < 3 L Urine Barbiturates Ur Phencyclidine (PCP) U Amphetamin/Meth Scrn MDMA (Ecstasy) Screen U Benzodiazepines Scrn Ur Cocaine Metabolite U Marijuana (THC) Screen Ethyl Alcohol mg/dL SARS-CoV-2, RNA, NAAT 07/31/21 07/31/21 07/31/21 11:44 13:20 20:27 WBC RBC Hgb Hct MCV MCH MCHC RDW Std Deviation RDW Coeff of Sen[place] Plt Count MPV Immature Gran % (Auto) Neut % (Auto) Lymph % (Auto) [place] % (Auto) Eos % (Auto) Baso % (Auto) Neut # (Auto) Lymph # (Auto) [place] # (Auto) Eos # (Auto) Baso # (Auto) Immature Gran # (Auto) Sodium Potassium Chloride Carbon Dioxide Anion Gap BUN Creatinine Est Cr Clr Drug Dosing Est GFR ( Amer) Est GFR (Non-Af Amer) BUN/Creatinine Ratio Glucose POC Glucose 108 H Fasting Glucose Calcium Total Bilirubin AST ALT Alkaline Phosphatase Total Protein Albumin Globulin Albumin/Globulin Ratio Triglycerides Cholesterol LDL Cholesterol, Calc VLDL Cholesterol, Calc HDL Cholesterol Cholesterol/HDL Ratio TSH Urine Color Urine Appearance Urine pH Ur Specific [place] Urine Protein Urine Glucose (UA) Urine Ketones Urine Blood Urine Nitrite Urine Bilirubin Urine Urobilinogen Ur Leukocyte Esterase Urine WBC (Auto) Urine RBC (Auto) U Hyaline Cast (Auto) U Epithel Cells (Auto) Urine Bacteria (Auto) Urine Test Salicylates Urine Opiates Screen Ur Methadone, Qual Acetaminophen Urine Barbiturates Ur Phencyclidine (PCP) U Amphetamin/Meth Scrn MDMA (Ecstasy) Screen U Benzodiazepines Scrn Ur Cocaine Metabolite U Marijuana (THC) Screen Ethyl Alcohol mg/dL < 10.0 SARS-CoV-2, RNA, NAAT NEGATIVE 07/31/21 08/01/21 08/01/21 Unknown 07:47 17:35 WBC RBC Hgb Hct MCV MCH MCHC RDW Std Deviation RDW Coeff of Sen[place] Plt Count MPV Immature Gran % (Auto) Neut % (Auto) Lymph % (Auto) [place] % (Auto) Eos % (Auto) Baso % (Auto) Neut # (Auto) Lymph # (Auto) [place] # (Auto) Eos # (Auto) Baso # (Auto) Immature Gran # (Auto) Sodium Potassium Chloride Carbon Dioxide Anion Gap BUN Creatinine Est Cr Clr Drug Dosing Est GFR ( Amer) Est GFR (Non-Af Amer) BUN/Creatinine Ratio Glucose POC Glucose 108 H 106 H Fasting Glucose Calcium Total Bilirubin AST ALT Alkaline Phosphatase Total Protein Albumin Globulin Albumin/Globulin Ratio Triglycerides Cholesterol LDL Cholesterol, Calc VLDL Cholesterol, Calc HDL Cholesterol Cholesterol/HDL Ratio TSH Urine Color Urine Appearance Urine pH Ur Specific [place] Urine Protein Urine Glucose (UA) Urine Ketones Urine Blood Urine Nitrite Urine Bilirubin Urine Urobilinogen Ur Leukocyte Esterase Urine WBC (Auto) Urine RBC (Auto) U Hyaline Cast (Auto) U Epithel Cells (Auto) Urine Bacteria (Auto) Urine Test Negative Salicylates Urine Opiates Screen Ur Methadone, Qual Acetaminophen Urine Barbiturates Ur Phencyclidine (PCP) U Amphetamin/Meth Scrn MDMA (Ecstasy) Screen U Benzodiazepines Scrn Ur Cocaine Metabolite U Marijuana (THC) Screen Ethyl Alcohol mg/dL SARS-CoV-2, RNA, NAAT 08/01/21 08/02/21 08/02/21 21:16 08:12 08:32 WBC RBC Hgb Hct MCV MCH MCHC RDW Std Deviation RDW Coeff of Sen[place] Plt Count MPV Immature Gran % (Auto) Neut % (Auto) Lymph % (Auto) [place] % (Auto) Eos % (Auto) Baso % (Auto) Neut # (Auto) Lymph # (Auto) [place] # (Auto) Eos # (Auto) Baso # (Auto) Immature Gran # (Auto) Sodium Potassium Chloride Carbon Dioxide Anion Gap BUN Creatinine Est Cr Clr Drug Dosing Est GFR ( Amer) Est GFR (Non-Af Amer) BUN/Creatinine Ratio Glucose POC Glucose 105 H 99 Fasting Glucose 93 Calcium Total Bilirubin AST ALT Alkaline Phosphatase Total Protein Albumin Globulin Albumin/Globulin Ratio Triglycerides 418 H Cholesterol 225 H LDL Cholesterol, Calc TNP VLDL Cholesterol, Calc TNP HDL Cholesterol 44 Cholesterol/HDL Ratio 5.1 H TSH Urine Color Urine Appearance Urine pH Ur Specific [place] Urine Protein Urine Glucose (UA) Urine Ketones Urine Blood Urine Nitrite Urine Bilirubin Urine Urobilinogen Ur Leukocyte Esterase Urine WBC (Auto) Urine RBC (Auto) U Hyaline Cast (Auto) U Epithel Cells (Auto) Urine Bacteria (Auto) Urine Test Salicylates Urine Opiates Screen Ur Methadone, Qual Acetaminophen Urine Barbiturates Ur Phencyclidine (PCP) U Amphetamin/Meth Scrn MDMA (Ecstasy) Screen U Benzodiazepines Scrn Ur Cocaine Metabolite U Marijuana (THC) Screen Ethyl Alcohol mg/dL SARS-CoV-2, RNA, NAAT 08/02/21 08/02/21 08/02/21 12:43 12:43 17:20 WBC RBC Hgb Hct MCV MCH MCHC RDW Std Deviation RDW Coeff of Sen[place] Plt Count MPV Immature Gran % (Auto) Neut % (Auto) Lymph % (Auto) [place] % (Auto) Eos % (Auto) Baso % (Auto) Neut # (Auto) Lymph # (Auto) [place] # (Auto) Eos # (Auto) Baso # (Auto) Immature Gran # (Auto) Sodium Potassium Chloride Carbon Dioxide Anion Gap BUN Creatinine Est Cr Clr Drug Dosing Est GFR ( Amer) Est GFR (Non-Af Amer) BUN/Creatinine Ratio Glucose POC Glucose 137 H 137 H 98 Fasting Glucose Calcium Total Bilirubin AST ALT Alkaline Phosphatase Total Protein Albumin Globulin Albumin/Globulin Ratio Triglycerides Cholesterol LDL Cholesterol, Calc VLDL Cholesterol, Calc HDL Cholesterol Cholesterol/HDL Ratio TSH Urine Color Urine Appearance Urine pH Ur Specific [place] Urine Protein Urine Glucose (UA) Urine Ketones Urine Blood Urine Nitrite Urine Bilirubin Urine Urobilinogen Ur Leukocyte Esterase Urine WBC (Auto) Urine RBC (Auto) U Hyaline Cast (Auto) U Epithel Cells (Auto) Urine Bacteria (Auto) Urine Test Salicylates Urine Opiates Screen Ur Methadone, Qual Acetaminophen Urine Barbiturates Ur Phencyclidine (PCP) U Amphetamin/Meth Scrn MDMA (Ecstasy) Screen U Benzodiazepines Scrn Ur Cocaine Metabolite U Marijuana (THC) Screen Ethyl Alcohol mg/dL SARS-CoV-2, RNA, NAAT 08/02/21 08/03/21 20:58 08:07 WBC RBC Hgb Hct MCV MCH MCHC RDW Std Deviation RDW Coeff of Sen[place] Plt Count MPV Immature Gran % (Auto) Neut % (Auto) Lymph % (Auto) [place] % (Auto) Eos % (Auto) Baso % (Auto) Neut # (Auto) Lymph # (Auto) [place] # (Auto) Eos # (Auto) Baso # (Auto) Immature Gran # (Auto) Sodium Potassium Chloride Carbon Dioxide Anion Gap BUN Creatinine Est Cr Clr Drug Dosing Est GFR ( Amer) Est GFR (Non-Af Amer) BUN/Creatinine Ratio Glucose POC Glucose 125 H 98 Fasting Glucose Calcium Total Bilirubin AST ALT Alkaline Phosphatase Total Protein Albumin Globulin Albumin/Globulin Ratio Triglycerides Cholesterol LDL Cholesterol, Calc VLDL Cholesterol, Calc HDL Cholesterol Cholesterol/HDL Ratio TSH Urine Color Urine Appearance Urine pH Ur Specific [place] Urine Protein Urine Glucose (UA) Urine Ketones Urine Blood Urine Nitrite Urine Bilirubin Urine Urobilinogen Ur Leukocyte Esterase Urine WBC (Auto) Urine RBC (Auto) U Hyaline Cast (Auto) U Epithel Cells (Auto) Urine Bacteria (Auto) Urine Test Salicylates Urine Opiates Screen Ur Methadone, Qual Acetaminophen Urine Barbiturates Ur Phencyclidine (PCP) U Amphetamin/Meth Scrn MDMA (Ecstasy) Screen U Benzodiazepines Scrn Ur Cocaine Metabolite U Marijuana (THC) Screen Ethyl Alcohol mg/dL SARS-CoV-2, RNA, NAAT Hospital Course (1) Recurrent moderate major depressive disorder with anxiety: (2) Bipolar affective disorder, currently depressed, moderate: (3) Suicidal ideations: (4) Post traumatic stress disorder (PTSD): (5) Borderline personality disorder: (6) DELANEY (generalized anxiety disorder): 08/02/21: Wellbutrin trial. Declines shift in Neurontin dosing at this time. reviewed fasting cholesterol panel and risk of pancreatitis given triglyce rides >300, has been nearly 600 previously. States she stopped her omega 3 FA as unusure it was helping and has been historically irregardless of her antipsychotic medication. 08/01/21: [facility] on q15 min checks (behavioral with suicide precautions) for safety. The patient will participate in group, recreational, and milieu therapies and will be offered additional individual and family sessions as clinically appropriate. -Continue prior to admission medications including Vraylar 6mg qd, gabapentin 700mg TID (for back pain), buspar 15/15/30mg, tegretol 600mg BID; will hold home clonidine as she's uncertain if she's been taking it and discussed it could be contributing to fatigue -Wellbutrin 150mg XL for depression augmentation and smoking cessation -NRT patch and gum -fasting lipid panel and glucose given outpatient Vraylar use Mental Health & Subst Abuse Tx Psychiatrist Name of Psychiatrist: [facility] Psychiatrist's Phone Number: [phone] Date of Appointment with Psychiatrist: 08/26/21 Time of Appointment with Psychiatrist: 1pm Psychiatric Appointment Comment: [address] [place], [place] Therapist Name of Therapist: waitlisted Mentally Retarded Teacher Name of Mentally Retarded Teacher: [facility] Phone Number for Mentally Retarded Teacher: [phone] Case Management Appointment Comment: in-home/community Post Discharge Appointments [facility] Date of Appointment with PCP: 08/12/21 Time of Appointment with PCP: 9 a.m Provider Appointment Comment: [address] [place] [address] Partial or Psych Rehab Name of [facility] or Psych Rehab: [facility] Phone Number of Partial or Psych Rehab: [phone] Partial or Psych Rehab Appointment Comment: [id number] [place] [address] Home Health Services Home Health Services:: None Smoking Cessation Counseling Tobacco Cessation Medication Prescribed at Discharge: Offered & Pt Refused Other #1: Name of Aftercare Appointment: [facility]- [facility] Aftercare Appointment Comment: in-home services Contact Information Discharge Address: [address] [place] [address] Discharge Plan Discharge Items Patient Disposition: Home - Self-Care Reason For Visit: MENTAL HEALTH EVALUATION Discharge Diagnosis: bipolar disorder, most recent episode depressed Activity: Resume your previous activity Non-emergency contact: Primary Care Provider, Psychiatrist, Therapist and [employer] Well Log[employer] Engineer Call non-emergency contact if: you have any medication questions and your symptoms worsen Follow-up/Referrals: Joseph Crespo DO [Primary Care Provider] - Diet: Regular Addtl Attending Provider Instructions: SPECIAL CARE INSTRUCTIONS: 1. Follow through with your scheduled aftercare appointments. If unable to keep an appointment, please call to reschedule. 2. Take your medication only as prescribed. Medication should not be changed or stopped without the approval of your doctor. In the event of worsening symptoms or concerns about side effects, contact your doctor immediately. 3. Utilize new healthy coping skills, anger management skills, and stress management skills learned during your hospitalization. Journal feelings and process them with a support person. Identify stressors or situations that may result in relapse, deterioration or inappropriate behaviors and develop a plan to deal with those issues. 4. If your coping skills are ineffective and you are in crisis, contact your outpatient providers for direction. If unable to reach your providers, please call the [facility] CRISIS LINE AT , go to the [facility] walk-in center at [address] [place] [address] A, [place], or go to the closest Emergency Room. 5. Avoid alcohol and un-prescribed drugs. 6. You have been provided with the Mental Health Advance Directives Pamphlet for your review. 7. Your condition is stable for discharge to outpatient level of care, but recovery is an ongoing process. Ifthoughts to harm yourself or others return, follow the safety plan developed during your stay. Planning for a safe return home includes securing weapons. Our treatment team recommends weaponsbe removed from the home until your outpatient provider reassesses your progress. In rare cases where the items themselvescannot be removed, guns and ammunitionshould be secured separatelyand keys stored by a reliable personoutside of the home. If you were admitted on an involuntary commitment, the police or other legal authorities may be involved in this process. AFTERCARE APPOINTMENTS: * Please call your insurance company prior to your scheduled appointment to confirm your aftercare providers are covered. Take your insurance information to your appointments. WHO TO CALL AND WHEN: Medical Emergencies: For questions or emergencies related to your hospital stay, please contact the Inpatient Behavioral Health Unit at [phone]. A pediatric surgeon is on-call 03/11 for the Behavioral Health Unit for emergencies At any time you feel your situation is an emergency, you may also call 911 immediately. Pending Studies at Discharge: No Stand-Alone Forms: My [facility], Smoking Cessation Medications and DC Order Prescriptions: New bupropion HCl [Wellbutrin XL] 150 mg tablet extended release 24 hr 150 mg PO QAM Qty: 30 RF: 0 Continued gabapentin [Neurontin] 600 mg tablet 600 mg PO TID Qty: 90 RF: 0 omeprazole 40 mg capsule,delayed release(DR/EC) 40 mg PO QPM Qty: 90 RF: 3 (DME) Accu-Chek Silva Plus test strp Strip See Rx Instructions .Route Qty: 100 RF: 11 hydrochlorothiazide 12.5 mg tablet 12.5 mg PO DAILY Qty: 30 RF: 5 Ozempic 1 mg/dose (4 mg/3 mL) pen injector 1 mg subcut .once a week Qty: 3 RF: 2 cranberry extract [Cranberry Concentrate] 500 mg capsule 1,500 mg PO BID RF: 0 metoprolol tartrate 50 mg tablet 50 mg PO BID Qty: 60 RF: 11 lisinopril 40 mg tablet 40 mg PO DAILY Qty: 30 RF: 11 ascorbic acid (vitamin C) 500 mg capsule 500 mg PO DAILY RF: 0 buspirone 30 mg tablet See Rx Instructions .ROUTE .COMPLEX RF: 0 carbamazepine 200 mg tablet 600 mg PO AMPM RF: 0 acetaminophen [Tylenol Extra Strength] 500 mg Tablet 1,000 mg PO Q6H PRN (Reason: Pain) RF: 0 calcium carbonate [Calcium 600] 600 mg calcium (1,500 mg) tablet 600 mg PO DAILY RF: 0 gabapentin 100 mg capsule 100 mg PO TID RF: 0 buspirone 30 mg tablet 30 mg PO HS RF: 0 clonidine HCl 0.1 mg tablet 0.1 mg PO UD RF: 0 Vraylar 6 mg capsule 6 mg PO DAILY RF: 0 Discontinued diphenhydramine HCl [Benadryl] 25 mg capsule 25 mg PO Q6H PRN (Reason: Allergy Symptoms) RF: 0 sertraline 25 mg tablet 25 mg PO DAILY RF: 0 Discharge Orders: Discharge Order (Routine); Ordered 08/03/21 Ordered By: Daya Cueva Admission Data Admit Date/Time: 07/31/21 16:16 Attending Provider: Daya Cueva Admit Provider: Marden,Nikki K. Primary Care Provider: Joseph Crespo Coding Level of Care Code 27789 D/C day mgmt > 30 min Diagnoses Recurrent moderate major depressive disorder with anxiety F33.1; F41.9 Bipolar affective disorder, currently depressed, moderate F31.32 Suicidal ideations R45.851 Post traumatic stress disorder (PTSD) F43.10 Borderline personality disorder F60.3 DELANEY (generalized anxiety disorder) F41.1
== END 2021-08-03 13:55 | disposition home or self-care (01) | DRG 885 ==
LOC: ED 11:12 → 3S 16:16 → SUATTDRO 16:16 → ED 16:35

== ENCOUNTER 2022-06-17 05:41 | Observation (INO) ==
[2022-06-17 06:14] LABS: Basophils # (auto) 0.03 K/uL (0-0.2); Basophils % (auto) 0.4 %; Eosinophils # (auto) 0.05 K/uL (0-0.50); Eosinophils % (auto) 0.7 %; Hematocrit (blood only) 41.3 % (37.0-47.0); Hemoglobin 13.9 g/dl (12.0-16.0); Immature Granulocytes # (auto) 0.01 K/uL (0.01-0.20); Immature Granulocytes % (auto) 0.1 %; Lymphocytes # (auto) 1.99 K/uL (1.2-3.4); Lymphocytes % (auto) 27.8 %; Mean Corpuscular Hemoglobin 30.3 pg (25.0-34.0); Mean Corpuscular Hgb Conc 33.7 g/dL (32.0-36.0); Mean Corpuscular Volume 90.2 fL (80.0-100.0); Mean Platelet Volume 10.1 fL (9.4-12.4); Monocytes # (auto) 0.39 K/uL (0.11-0.59); Monocytes % (auto) 5.4 %; Neutrophils # (auto) 4.69 K/uL (1.40-6.50); Neutrophils % (auto) 65.6 %; Platelet Count 309 K/uL (130-400); RDW Coefficient of Variation 12.7 % (11.5-14.5); Red Blood Count 4.58 M/uL (4.20-5.40); White Blood Count 7.16 K/ul (4.8-10.8)
[2022-06-17 06:28] LABS: Albumin Globulin Ratio 1.8 (0.9-2); Albumin Level 4.2 gm/dl (3.4-5.0); BUN Creatinine Ratio 13.9 (10-20); Bilirubin,Total 0.4 mg/dl (0.2-1.0); Calcium 8.8 mg/dl (8.5-10.1); Creatinine Clr Calc Pharmacy 104.3 ml/min; Est GFR (African American) 120.6 ml/min; Globulin 2.3 gm/dl (2.5-4.0); Potassium 3.5 mmol/L (3.5-5.1); Total Protein 6.5 gm/dl (6.0-8.3)
[2022-06-17] MEDS ORDERED: SODIUM CHLORIDE 0.9% 1000ML 1,000 ML IV ONE (06:30)
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
[2022-06-17 06:50] LABS: Appearance Urine Cloudy (Clear); Bacteria Urine Automated Negative (Negative); Bilirubin Urine Negative (Negative); Blood Urine Negative (Negative); Color Urine Dark Yellow; Epithelial Cell Urine Auto >30 /lpf (0-5); Glucose Urine UA Negative (Negative); Ketones Urine Trace (Negative); Leukocyte Esterase Urine Trace (Negative); Nitrite Urine Negative (Negative); Protein Urine Trace (Negative); Specific Gravity Urine 1.033 (1.000-1.030); Urobilinogen Urine Negative (Negative); pH Urine 5.5 (4.5-7.5)
[2022-06-17 07:07] LABS: Amphetamines+Metham, Urine Neg (Neg); Barbiturates, Urine Neg (Neg); Benzodiazepine, Urine Neg (Neg); Cocaine, Urine Neg (Neg); MDMA (Ecstacy), Urine Neg (Neg); Methadone, Urine Neg (Neg); Opiate, Urine Neg (Neg); Phencyclidine, Urine Neg (Neg)
[2022-06-17 07:31] LABS: Acetaminophen < 3 ug/ml (10-30); Salicylate < 3.0 mg/dl (3.0-30)
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
[2022-06-17] MEDS ORDERED: ALUMINUM/MAGNESIUM SUSP 30 ML UDC PO PRN (10:28)
[2022-06-17] MEDS ORDERED: MAGNESIUM HYDROXIDE SUSP 30 ML UDC PO PRN (10:28)
[2022-06-17] MEDS ORDERED: ONDANSETRON INJ 2 MG/ML 2 ML VIAL IV PRN (10:28)
[2022-06-17] MEDS ORDERED: ACETAMINOPHEN 325 MG TAB PO PRN (10:28)
[2022-06-17] MEDS: NSS + 20MEQ KCL 20 MEQ/1,000 ML BAG IV SCH ×2 (11:00→22:37)
--- NOTE | 2022-06-17 12:51 | Electrocardiogram Report ---
Test Reason : Blood Pressure : / mmHG Vent. Rate : 089 BPM Atrial Rate : 089 BPM P-R Int : 192 ms QRS Dur : 098 ms QT Int : 372 ms P-R-T Axes : 061 074 059 degrees QTc Int : 452 ms Normal sinus rhythm Normal ECG When compared with ECG of 16-JUN-2022 09:11, No significant change Confirmed by Jose Cloud ([id number]) on 06/17/2022 12:50:51 PM Referred By: REFERRED SELF Confirmed By:Jose Cloud
[2022-06-18] MEDS ORDERED: FENOFIBRATE NANOCRYSTALLIZED 145 MG TABLET PO SCH (09:00)
[2022-06-18] MEDS ORDERED: ASCORBIC ACID 500 MG TAB PO SCH (09:00)
[2022-06-18] MEDS ORDERED: CALCIUM CARBONATE 1250MG TAB PO SCH (09:00)
[2022-06-18] MEDS ORDERED: lisinopril 40 MG TAB PO SCH (09:00)
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
--- NOTE | 2022-06-18 10:24 | Discharge Summary ---
Date of Service June 18, 2022 Admission HPI Per Admitting Provider 42-year-old female with a psychiatric history including PTSD. She is on multiple medications. She develops encephalopathy and somnolence after taking her medications. She was seen in the ED yesterday, June 16, with similar symptoms and insisted on going home despite encouragement to stay in the hospital. Head CT scan was negative. She takes a plethora of medications including BuSpar, carbamazepine, gabapentin, mirtazapine, and cariprazine. These will be placed on hold temporarily. Urine toxicology screen is negative for other compounds. Urine analysis is unremarkable. Glucose 132 in the ED. Potassium slightly low at 3.5. She denies any suicidal ideation or other substance abuse. She is placed in observation for further assessment and treatment. Principal Diagnosis Toxic encephalopathy secondary to medication side effects Discharge Exam General-alert and oriented x3, no fevers, no chills HEENT-head atraumatic and normocephalic, pupils equal and reactive to light, extraocular muscles intact Neck-no lymphadenopathy or thyromegaly, trachea midline Chest-clear to auscultation percussion. No rales wheezing or rhonchi Cardiac-regular rate and rhythm, normal S1 and S2 Abdomen-normal bowel sounds, nontender, no hepatosplenomegaly Extremities-no cyanosis, clubbing, or edema Neuro-cranial nerves II through XII intact, motor and sensory function within normal limits, strength symmetrical , no focal deficits Psych-normal affect, normal mood Discharge Data Allergies Allergy/AdvReac Type Severity Reaction Status Date / Time chlorpromazine Allergy Intermediate RASH Verified 06/17/22 06:50 chlorpropamide Allergy Intermediate rash Verified 06/17/22 06:50 naproxen Allergy Intermediate Rash Verified 06/17/22 06:50 risperidone Allergy Intermediate swollen Verified 06/17/22 06:50 tongue and stiff legs vilazodone Allergy Intermediate VIIBRYD- Verified 06/17/22 06:50 RASH doxycycline AdvReac Intermediate hives Verified 06/17/22 06:50 haloperidol [From Haldol] AdvReac Unknown history of Verified 06/17/22 06:50 NMS Consultations 06/17/22 08:04 ED Decision to Admit Stat 06/17/22 10:28 Consult Psychiatry Routine Hospital Course (1) Toxic encephalopathy: Now resolved. Psychiatry consultation noted. They recommend restarting all medications except for mirtazapine. She was treated with IV fluids while hospitalized and supportive care. (2) HLD (hyperlipidemia): Stable. 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 Psychiatry consultation appreciated. Will restart all medications except for mirtazapine at discharge (4) Prediabetes: ADA diet. Sliding scale coverage if needed (5) Essential hypertension: Continue lisinopril. Clonidine and hydrochlorothiazide were held on admission but restarted at discharge (6) Hypokalemia: Corrected with IV replacement. Serial labs Plan Home today, June 18, off mirtazapine. All other medications remain the same Total Time Total Time Spent Total Time Spent (In Minutes): 35 minutes Discharge Plan Discharge Items Patient Disposition: Home - Self-Care Reason For Visit: ENCEPHALOPATHY Discharge Diagnosis: Toxic encephalopathy secondary to medication side effects Condition on Discharge: Good Activity: Resume your previous activity Non-emergency contact: Primary Care Provider Call non-emergency contact if: you have any medication questions and your symptoms worsen Follow-up/Referrals: Joseph Crespo, [Primary Care Provider] - Diet: Regular Addtl Attending Provider Instructions: Mirtazapine has been discontinued. All other medications remain the same Pending Studies at Discharge: No Stand-Alone Forms: My Project Fixup, Smoking Cessation Medications and DC Order Prescriptions: Continued gabapentin [Neurontin] 600 mg tablet 600 mg PO TID Qty: 90 0RF Rx Instructions: TOTAL DOSE 700 MG--TAKES WITH 100 MG CAP. hydrochlorothiazide 12.5 mg tablet 12.5 mg PO DAILY Qty: 30 11RF lisinopril 40 mg tablet 40 mg PO DAILY Qty: 90 3RF omeprazole 40 mg capsule,delayed release(DR/EC) 40 mg PO QPM Qty: 90 3RF (DME) Accu-Chek Silva Plus test strp Strip See Rx Instructions .Route Qty: 100 11RF Rx Instructions: TEST ONCE DAILY; DX CODE- R73.03 (DME) lancets [Accu-Chek Softclix Lancets] Misc See Rx Instructions .Route Qty: 100 5RF Rx Instructions: CHeck BS once a day DX R73.03 Ozempic 2 mg/dose (8 mg/3 mL) pen injector 2 mg subcut Q7D Qty: 3 3RF Rx Instructions: Thursday cranberry extract [Cranberry Concentrate] 500 mg capsule 1,500 mg PO BID Rx Instructions: administer with meals ascorbic acid (vitamin C) 500 mg capsule 500 mg PO DAILY fenofibrate 160 mg tablet 160 mg PO DAILY Qty: 90 3RF buspirone 30 mg tablet See Rx Instructions .ROUTE .COMPLEX Rx Instructions: 30 MG TAB ORALLY; TAKES 15 MG QAM & AFTERNOON, THEN 30 MG AT QHS. carbamazepine 200 mg tablet 600 mg PO AMPM calcium carbonate [Calcium 600] 600 mg calcium (1,500 mg) tablet 600 mg PO DAILY gabapentin 100 mg capsule 100 mg PO TID Rx Instructions: TOTAL DOSE 700 MG--TAKES WITH 600 MG CAP. clonidine HCl 0.1 mg tablet See Rx Instructions .ROUTE .COMPLEX Rx Instructions: 0.1 mg orally ;take 1 tablet in the morning, 1 tablet in the afternoon, and 2 tablets in the evening Vraylar 6 mg capsule 6 mg PO DAILY Discontinued mirtazapine 7.5 mg tablet 7.5 mg PO HS Discharge Orders: Discharge Order (Routine); Ordered 06/18/22 Ordered By: Jeremy Purvis Admission Data Admit Date/Time: 06/17/22 09:08 Attending Provider: Jreemy Purvis Admit Provider: Jeremy Purvis Primary Care Provider: Joseph Crespo Other Providers: Jeremy Purvis ; Nikki James ; Daya Cueva ; Bryson Yousif Coding Level of Care Code 80390 INP/OBS DISCH >30 MIN Diagnoses Toxic encephalopathy G92.9 HLD (hyperlipidemia) E78.5 Bipolar affective disorder, currently depressed, moderate F31.32 Prediabetes R73.03 Essential hypertension I10 Hypokalemia E87.6
[2022-06-18 10:51] VITALS: BP 162/95; PULSE 79; TEMP 98.2; O2SAT 98
== END 2022-06-18 13:00 | disposition home or self-care (01) ==
LOC: ED 05:41 → 2N 05:41